=== PATIENT | female | born 1965 | race Two or more races ===

== ENCOUNTER 2022-12-08 10:38 | Outpatient (OUT) | payer MEDICARE, MEDICAID, SELFPAY ==
--- NOTE | 2022-12-08 11:15 | MM_ITS ---
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 MG MAMM SCREEN 3D KATHY CAD, 12/01/2021. INDICATIONS: Screening mammogram Z12.31 Calculator Name NCI Breast Cancer Risk Assessment Tool 5 Year Breast Cancer Risk 1.30% Lifetime Breast Cancer Risk 8.20% Personal Breast Cancer No Personal Ovarian Cancer No Treatments None Family Cancers Brother with unknown cancer at age 49; Brother with unknown cancer at age 57; Father with lung cancer at age 75. LOCATION: [facility] BREAST COMPOSITION: Scattered areas fibroglandular density. FINDINGS: DIAGNOSTIC CATEGORY 2--BENIGN FINDING. NO CHANGE FROM COMPARISON. Scattered benign-appearing calcifications are present. Limited exam due to difficulty positioning the patient. RIGHT BREAST: No significant suspicious finding. Stable micro clip marker axillary tail LEFT BREAST: No significant suspicious finding. RECOMMENDATIONS: ROUTINE MAMMOGRAM AND CLINICAL EVALUATION IN 12 MONTHS. PLEASE NOTE: A NORMAL MAMMOGRAM DOES NOT EXCLUDE THE POSSIBILITY OF BREAST CANCER. A CLINICALLY SUSPICIOUS PALPABLE LUMP SHOULD BE BIOPSIED. Dictated by: Andrew Rincon MD on 12/08/2022 at 11:53 Approved by: Andrew Rincon MD on 12/08/2022 at 11:54
[2022-12-08 12:39] LABS: Basophils Percent Auto 0.5 % (0.2-2.0); Eosinophils Absolute Auto 0.1 10^3/uL (0.0-0.7); Eosinophils Percent Auto 1.5 % (0.9-7.0); Hematocrit 43.1 % (36.0-48.0); Hemoglobin 14.1 g/dL (12.0-16.0); Immature Granulocytes Abs Auto 0.03 10^3/uL (0.00-0.03); Immature Granulocytes Pct Auto 0.4 % (0.0-0.5); Lymphocytes Absolute Auto 2.5 10^3/uL (1.2-3.8); Mean Corpuscular HGB Conc 32.7 g/dL (29.9-35.2); Mean Corpuscular Hemoglobin 30.8 pg (26.7-34.0); Mean Corpuscular Volume 94.1 fL (81.0-99.0); Mean Platelet Volume 12.3 fL (9.5-13.5); Monocytes Absolute Auto 0.5 10^3/uL (0.3-0.8); Monocytes Percent Auto 6.3 % (1.7-12.0); Neutrophils Absolute Auto 4.6 10^3/uL (1.4-6.5); Neutrophils Percent Auto 59.3 % (43.0-75.0); Platelet Count 272 10^3/uL (150-450); Red Blood Count 4.58 10^6/uL (4.20-5.40); Red Cell Distribution Width 12.8 % (11.0-15.0); White Blood Count 7.8 10^3/uL (4.0-11.0)
[2022-12-08 13:23] LABS: Alanine Aminotransferase 21 U/L (14-59); Albumin Level 3.9 g/dL (3.4-5.0); Alkaline Phosphatase 120 U/L (46-116); Anion Gap 14.9; Aspartate Amino Transferase 18 U/L (15-37); Bilirubin Total 0.4 mg/dL (0.2-1.0); Calcium 8.9 mg/dL (8.5-10.1); Carbon Dioxide 23.6 mmol/L (21.0-32.0); Chloride 106 mmol/L (98-107); Chol HDL Ratio 3.2; Cholesterol 133 mg/dL (<=200); Estimated GFR (African America >60 (>=60); Estimated GFR (Non-African Ame >60 (>=60); Globulin 3.9 g/dL; Glucose 90 mg/dL (74-106); HDL Cholesterol 41 mg/dL (40-60); LDL Cholesterol Calculated 62.2 mg/dL; Potassium 4.5 mmol/L (3.5-5.1); Sodium 140 mmol/L (136-145); Thyroid Stimulating Hormone 0.757 uIU/mL (0.358-3.740); Total Protein 7.8 g/dL (6.4-8.2); Triglycerides 149 mg/dL (<=150); VLDL CHOLESTEROL 29.8 mg/dL
== END 2022-12-08 10:39 | disposition home or self-care (01) ==
LOC: MAMMO 10:44
PROVIDERS: PCP Nurse Practitioner; Visit Provider Nurse Practitioner
DX: Z12.31 Encounter for screening mammogram for malignant neoplasm of breast (principal); E78.5 Hyperlipidemia, unspecified; E55.9 Vitamin D deficiency, unspecified; K21.9 Gastro-esophageal reflux disease without esophagitis; F32.A Depression, unspecified; Z80.1 Family history of malignant neoplasm of trachea, bronchus and lung; Z80.9 Family history of malignant neoplasm, unspecified
CPT/HCPCS: 36415; 77063; 77067; 80053; 80061; 82306; 84443; 85025

== ENCOUNTER 2023-10-27 08:51 | Outpatient (OUT) | payer MEDICARE, MEDICAID, SELFPAY ==
[2023-10-27 09:16] LABS: Basophils Percent Auto 0.4 % (0.2-2.0); Eosinophils Absolute Auto 0.1 10^3/uL (0.0-0.7); Eosinophils Percent Auto 1.6 % (0.9-7.0); Hematocrit 41.1 % (36.0-48.0); Hemoglobin 13.6 g/dL (12.0-16.0); Immature Granulocytes Abs Auto 0.01 10^3/uL (0.00-0.03); Immature Granulocytes Pct Auto 0.1 % (0.0-0.5); Lymphocytes Absolute Auto 2.9 10^3/uL (1.2-3.8); Lymphocytes Percent Auto 39.4 % (20.5-60.0); Mean Corpuscular HGB Conc 33.1 g/dL (29.9-35.2); Mean Corpuscular Hemoglobin 31.1 pg (26.7-34.0); Mean Corpuscular Volume 94.1 fL (81.0-99.0); Mean Platelet Volume 11.9 fL (9.5-13.5); Monocytes Absolute Auto 0.4 10^3/uL (0.3-0.8); Monocytes Percent Auto 5.8 % (1.7-12.0); Neutrophils Absolute Auto 3.9 10^3/uL (1.4-6.5); Neutrophils Percent Auto 52.7 % (43.0-75.0); Platelet Count 236 10^3/uL (150-450); Red Blood Count 4.37 10^6/uL (4.20-5.40); Red Cell Distribution Width 12.6 % (11.0-15.0); White Blood Count 7.4 10^3/uL (4.0-11.0)
[2023-10-27 09:28] LABS: Estimated Average Glucose 114 mg/dL; Glycohemoglobin A1C 5.6 % (4.5-6.2)
[2023-10-27 10:44] LABS: Alanine Aminotransferase 29 U/L (14-59); Albumin Level 3.7 g/dL (3.4-5.0); Alkaline Phosphatase 130 U/L (46-116); Anion Gap 14.1; Aspartate Amino Transferase 11 U/L (15-37); Bilirubin Total 0.4 mg/dL (0.2-1.0); Calcium 8.6 mg/dL (8.5-10.1); Carbon Dioxide 25.1 mmol/L (21.0-32.0); Chloride 105 mmol/L (98-107); Cholesterol 131 mg/dL (<=200); Estimated GFR (African America >60 (>=60); Estimated GFR (Non-African Ame >60 (>=60); Globulin 3.7 g/dL; Glucose 92 mg/dL (74-106); HDL Cholesterol 44 mg/dL (40-60); Potassium 4.2 mmol/L (3.5-5.1); Sodium 140 mmol/L (136-145); Thyroid Stimulating Hormone 0.849 uIU/mL (0.358-3.740); Total Protein 7.4 g/dL (6.4-8.2); Triglycerides 120 mg/dL (<=150)
== END 2023-10-27 08:52 | disposition home or self-care (01) ==
LOC: LAB 08:53
PROVIDERS: PCP Nurse Practitioner; Visit Provider Nurse Practitioner
DX: E55.9 Vitamin D deficiency, unspecified (principal); R12 Heartburn; E78.2 Mixed hyperlipidemia; F33.40 Major depressive disorder, recurrent, in remission, unspecified; R73.09 Other abnormal glucose
CPT/HCPCS: 36415; 80053; 80061; 82306; 83036; 84443; 85025

== ENCOUNTER 2023-12-13 10:24 | Outpatient (OUT) | payer MEDICARE, MEDICAID, SELFPAY ==
--- NOTE | 2023-12-13 10:30 | MM_ITS ---
Patient Name: ANDREA TORIBIO MR#: [id number] : 1965 Exam Date: 12/13/2023 Ordering Doctor: BRIAN De La O CNP RADIOLOGY REPORT PROCEDURE: MM TOMOSYNTHESIS SCREENING BI COMPARISON: MM TOMOSYNTHESIS SCREENING BI, 12/08/2022. MG MAMM SCREEN 3D KATHY CAD, 12/01/2021. MG MAMM SCREEN 3D KATHY CAD, 10/30/2020. MG MAMM KATHY SCRN W CAD DIG, 06/06/2013. INDICATIONS: Screening Calculator Name NCI Breast Cancer Risk Assessment Tool 5 Year Breast Cancer Risk 1.30% Lifetime Breast Cancer Risk 8.00% Personal Breast Cancer No Personal Ovarian Cancer No Treatments None Family Cancers Brother with unknown cancer at age 49; Brother with unknown cancer at age 57; Father with lung cancer at age 75. LOCATION: [facility] BREAST COMPOSITION: There are scattered areas of fibroglandular density. FINDINGS: DIAGNOSTIC CATEGORY 2--BENIGN FINDING: RIGHT BREAST: No significant suspicious finding. Stable, chronic lower-outer quadrant benign-appearing lymph node. No significant change has occurred. LEFT BREAST: No significant suspicious finding. No significant change has occurred. RECOMMENDATIONS: ROUTINE MAMMOGRAM AND CLINICAL EVALUATION IN 12 MONTHS. PLEASE NOTE: A NORMAL MAMMOGRAM DOES NOT EXCLUDE THE POSSIBILITY OF BREAST CANCER. A CLINICALLY SUSPICIOUS PALPABLE LUMP SHOULD BE BIOPSIED. Dictated by: Hussain Angela M.D. on 12/14/2023 at 16:21 Approved by: Hussain Angela M.D. on 12/14/2023 at 16:24
== END 2023-12-13 10:25 | disposition home or self-care (01) ==
LOC: MAMMO 10:26
PROVIDERS: PCP Nurse Practitioner; Visit Provider Nurse Practitioner
DX: Z12.31 Encounter for screening mammogram for malignant neoplasm of breast (principal); Z80.1 Family history of malignant neoplasm of trachea, bronchus and lung; Z80.8 Family history of malignant neoplasm of other organs or systems
CPT/HCPCS: 77063; 77067

== ENCOUNTER 2023-12-26 20:46 | Outpatient (REF) | payer MEDICARE, MEDICAID, SELFPAY ==
--- OUTSIDE RECORDS SUMMARY | 2023-12-26 20:50 | XMS_ITS | CCD ---
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 Name Role Phone ANA MEZA Primary Care Unavailable ANA MEZA Attending Unavailable DR ISAAC ARRIAZA V Consulting Unavailable ANA MEZA Admitting Unavailable ANA MEZA Consulting Unavailable Problems Problem Classification Problem Date Documented Da te Episodic/Chronic Other screening for suspected conditions (not mental disorders or infectious disease) (4 sources) Encounter for screening mammogram for malignant neoplasm of breast; Translations: [ENC SCR MAMMO MALIG NEOPLASM BREAST] Onset: 12-01-2021 Episodic Residual codes; unclassified (1 source) Family history of malignant neoplasm, unspecified; Translations: [FAM HX MALIGNANT NEOPLASM UNS] Onset: 12-03-2021 Episodic Results Test Name Value Interpretation Reference Range Facil ity MG MAMM SCREEN 3D KATHY CADon 12-01-2021 MG MAMM SCREEN 3D KATHY CAD Patient: ANDREA FERRARO. Exam Date: 12/01/2021 : 1965 Gender:F Ordering : ANA MEZA Admission #: [id number] Family : Order #: [id number] CLICK HERE TO VIEW EXAM RADIOLOGY REPORT PROCEDURE: MAMMOGRAM SCREENING 3D BILATERAL CAD COMPARISON: MG MAMM SCREEN KATHY W CAD, 10/26/2019. MG MAMM SCREEN 3D KATHY CAD, 10/30/2020. INDICATIONS: Screening mammography Calculator Name NCI Breast Cancer Risk Assessment Tool 5 Year Breast Cancer Risk 1.30% Lifetime Breast Cancer Risk 8.40% Personal Breast Cancer No Personal Ovarian Cancer No Treatments None Family Cancers Brother with unknown cancer at age 49; Brother with unknown cancer at age 57. LOCATION: [facility] BREAST COMPOSITION: Scattered areas fibroglandular density. FINDINGS: DIAGNOSTIC CATEGORY 2--BENIGN FINDING. NO CHANGE FROM COMPARISON. Scattered benign-appearing nodules are present. Scattered benign-appearing calcifications are present. Scattered benign-appearing lymph nodes are present. RIGHT BREAST: No significant suspicious finding. Two stable micro clip markers upper-outer quadrant. LEFT BREAST: No significant suspicious finding. RECOMMENDATIONS: ROUTINE MAMMOGRAM AND CLINICAL EVALUATION IN 12 MONTHS. PLEASE NOTE: A NORMAL MAMMOGRAM DOES NOT EXCLUDE THE POSSIBILITY OF BREAST CANCER. A CLINICALLY SUSPICIOUS PALPABLE LUMP SHOULD BE BIOPSIED. 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 There is no fracture or destructive lesion. Mild intervertebral disc height loss is noted at T12-L1 with anterior ossified formation. There is also minimal disc height loss at L4-5 and L5-S1 with accompanying facet hypertrophy. Mild symmetric sacroiliac joint degenerative changes are noted. XR/XR lumbar spine min 4V* IMPRESSION: No fracture or subluxation. Degenerative changes at T12-L1, L4-L5, and L5-S1 predominantly. Mild symmetric sacral iliac joint degenerative changes are noted. Impression dictated by: Sim Carl M.D.08/24/2020 11:39 AM Dictation Location: [place] [address] Transcribed By: LOCO 08/24/20 [id number] Dictated By: Sim Carl II, MD 08/24/20 1137 Signed By: 08/24/20 1139 [facility] Encounters Encounter Date Encounter Type Care Provider Facility Start: 12-01-2021 End: 12-02-2021 ambulatory ANA MEZA Facility: Payers Date Payer Category Payer Unknown [id number] 1959 Medicaid [id number] 1959 Medicare [id number] Summary Purpose Family History No Family History Records FoundNo Family History Records Found Advance Directives No Advanced Directives Records FoundNo Advanced Directives Records Found Additional Source Comments INFORMATION SOURCE (unrecogn ized section and content) DATE CREATED AUTHOR 06/02/2021 [facility] DATE CREATED AUTHOR AUTHOR'S CARLEY ATION 12/04/2021 [facility] FOR RECORDS PERTAINING TO PATIENTS WHO ARE OR HAVE BEEN ENROLLED IN A CHEMICAL DEPENDENCY/SUBSTANCEABUSE PROGRAM, SOME INFORMATION MAY BE OMITTED. This clinical summary was aggregated from multiple sources. Caution should be exercised in using it in the provision of clinical care. This summary normalizes information from multiple sources, and as a consequence, information in this document may materially change the coding, format and clinical context of patient data. In addition, data may be omitted in some cases. CLINICAL DECISIONS SHOULD BE BASED ON THE PRIMARY CLINICAL RECORDS. [facility] [employer] [facility]. provides no warranty or guarantee of the accuracy or completeness of information in this document.
[2023-12-27 16:16] LABS: Bilirubin Urine NEGATIVE (NEGATIVE); Blood Urine TRACE-I (NEGATIVE); Clarity Urine CLOUDY (CLEAR); Color Urine YELLOW (YELLOW); Glucose Urine UA NEGATIVE (NEGATIVE); Ketones Urine NEGATIVE (NEGATIVE); Leukocyte Esterase Urine NEGATIVE (NEGATIVE); Nitrite Urine NEGATIVE (NEGATIVE); Protein Urine NEGATIVE (NEG/TRACE); Specific Gravity Urine 1.025 (1.005-1.025); Urobilinogen Urine 0.2 EU/dL (0.2-1.0); pH Urine 6.5 (5.0-9.0)
[2023-12-27 16:22] LABS: Urine Microscopic Indicated YES
[2023-12-27 16:30] LABS: Amorphous Sediment Urine MANY; Bacteria Urine TRACE #/HPF (NONE SEEN); Cast Seen? NONE SEEN #/LPF (NONE SEEN); Crystals Seen? Seen #/HPF (None Seen); Mucus Urine NONE SEEN (NONE SEEN); Squamous Epithelial Cell Urine RARE #/LPF (NONE/RARE); WBC Urine 0-2 #/HPF (NONE SEEN)
== END 2023-12-26 20:47 | disposition home or self-care (01) ==
LOC: LAB 20:46
PROVIDERS: PCP Nurse Practitioner; Visit Provider Nurse Practitioner
DX: R11.2 Nausea with vomiting, unspecified (principal)
CPT/HCPCS: 81001

== ENCOUNTER 2024-07-05 09:17 | Outpatient (OUT) | payer MEDICARE, MEDICAID, SELFPAY ==
--- OUTSIDE RECORDS SUMMARY | 2024-07-05 09:34 | XMS_ITS | CCD ---
Author Organization [facility] Care Team Providers Care Art Critic Name Role Phone ANA MEZA Primary Care Unavailable ANA MEZA Attending Unavailable DR ISAAC ARRIAZA V Consulting Unavailable ANA MEZA Admitting Unavailable ANA MEZA Consulting Unavailable Jaylyn MAMMOGRAPHY TECH, Chasity Unavailable Archie Yeboah MD Primary Care Provider [phone] Jaylyn BAXTER, Chasity Unavailable CHASITY DE LA O Attending Unavailable CHASITY DE LA O Attending Unavailable CHASITY DE LA O Attending Unavailable Medications Current Medications Medication Drug Class(es) Dates Sig (Normalized) Sig (Original) acetaminophen 500 mg oral tablet (11 sources) Start: 08-02-2023 take 1 tablet by mouth every six hours as needed for pain acetaminophen (Tylenol) 500 MG tablet Indications: Pain GIVE 1 TABLET BY MOUTH EVERY 6 HOURS NEEDED FOR HEADACHE, GENERAL BODY PAIN NOT INCLUDING LEG PAIN OR FEVER>100.4 60 tablet 2 08/02/2023 Active cholecalciferol 0.125 mg oral capsule (9 sources) Vitamin D Start: 05-15-2024 End: 08-13-2024 take 1 capsule by mouth once daily cholecalciferol (Vitamin D-3) 125 MCG (5000 UT) capsule Indications: Vitamin D deficiency Take 1 capsule (125 mcg) by mouth Daily 90 capsule 05/15/2024 08/13/2024 Active Start: 11-28-2023 End: 02-26-2024 take 1 capsule by mouth once daily cholecalciferol (Vitamin D-3) 125 MCG (5000 UT) capsule Indications: Vitamin D deficiency Take 1 capsule (125 mcg) by mouth Daily 90 capsule 1 11/28/2023 02/26/2024 Active docusate sodium 100 mg oral capsule (10 sources) Start: 05-15-2024 End: 08-13-2024 take 2 capsules by mouth at bedtime docusate sodium (Colace) 100 MG capsule Indications: Constipation, unspecified constipation type Take 2 capsules (200 mg) by mouth at bedtime 180 capsule 05/15/2024 08/13/2024 Active Start: 11-28-2023 End: 02-28-2024 take 2 capsules by mouth at bedtime docusate sodium (Colace) 100 MG capsule Indications: Constipation, unspecified constipation type Take 2 capsules (200 mg) by mouth at bedtime 180 capsule 1 11/30/2023 02/28/2024 Active FLUoxetine 10 mg oral capsule (12 sources) Serotonin Reuptake Inhibitor Start: 11-28-2023 End: 08-13-2024 take 1 capsule by mouth once daily FLUoxetine (PROzac) 10 MG capsule Indications: Recurrent major depressive disorder, in remission (HCC) (CMS/HCC) Take 1 capsule (10 mg) by mouth Daily 90 capsule 05/15/2024 08/13/2024 Active fluticasone propionate 0.05 mg/actuat metered dose nasal spray (11 sources) Corticosteroid Start: 09-20-2023 End: 12-19-2023 take 2 spray(s) nasal route once daily fluticasone (Flonase) 50 MCG/ACT nasal spray Indications: Chronic allergic rhinitis due to pollen Administer 2 sprays into each nostril Daily 48 g 3 09/20/2023 Active ibuprofen 800 mg oral tablet (11 sources) Nonsteroidal Anti-inflammatory Drug Start: 04-16-2024 End: 07-15-2024 take 1 tablet by mouth every eight hours as needed for pain and arthritis and arthritis ibuprofen 800 MG tablet Indications: Arthritis Take 1 tablet (800 mg) by mouth every 8 (eight) hours if needed for mild pain 270 tablet 1 04/16/2024 07/15/2024 Active Start: 04-08-2023 End: 04-07-2024 take 1 tablet by mouth every eight hours as needed for pain and arthritis and arthritis ibuprofen 800 MG tablet Indications: Arthritis Take 1 tablet (800 mg) by mouth every 8 (eight) hours if needed for mild pain 270 tablet 2 04/08/2023 04/07/2024 Active loratadine 10 mg oral tablet (12 sources) Start: 11-07-2023 End: 08-13-2024 take 1 tablet by mouth once daily loratadine (Claritin) 10 MG tablet Indications: Chronic allergic rhinitis due to pollen Take 1 tablet (10 mg) by mouth Daily 90 tablet 05/15/2024 08/13/2024 Active omeprazole 20 mg delayed release oral capsule (12 sources) Proton Pump Inhibitor Start: 11-07-2023 End: 04-18-2024 take 1 capsule by mouth in the evening omeprazole (PriLOSEC) [address] capsule Indications: Gastroesophageal reflux disease without esophagitis Take 1 capsule (20 mg) by mouth in the evening 90 capsule 1 01/19/2024 Active ondansetron 4 mg disintegrating oral tablet (5 sources) Serotonin-3 Receptor Antagonist Start: 12-26-2023 End: 01-02-2024 take 1 tablet by mouth every eight hours for nausea ondansetron ODT (Zofran-ODT) 4 MG disintegrating tablet Indications: Nausea and vomiting, unspecified vomiting type Take 1 tablet (4 mg) by mouth every 8 (eight) hours if needed for nausea or vomiting for up to 7 days 21 tablet 12/26/2023 01/02/2024 Active rosuvastatin calcium 10 mg oral tablet (12 sources) HMG-CoA Reductase Inhibitor Start: 04-08-2023 End: 03-16-2024 take 1 tablet by mouth once daily in the evening rosuvastatin (Crestor) 10 MG tablet Indications: Mixed hyperlipidemia (CMS/HCC) GIVE 1 TABLET BY MOUTH EVERY EVENING (8PM) 90 tablet 1 03/16/2024 Active Problems Active Problems Problem Classification Problem Date Documented Da te Episodic/Chronic Disorders of lipid metabolism (12 sources) Mixed hyperlipidemia; Translations: [Mixed hyperlipidemia] Onset: 04-02-2023 04-02-2023 Chronic Mood disorders (12 sources) Recurrent major depression in remission; Translations: [Major depressive disorder, recurrent, in remission, unspecified] Onset: 06-17-2023 06-17-2023 Chronic Nutritional deficiencies (12 sources) Vitamin D deficiency; Translations: [Vitamin D deficiency, unspecified] Onset: 06-17-2023 06-17-2023 Chronic Osteoarthritis (12 sources) Bilateral arthritis of knees; Translations: [Bilateral primary osteoarthritis of knee] Onset: 03-26-2019 06-07-2023 Chronic Other gastrointestinal disorders (13 sources) Constipation; Translations: [Constipation, unspecified] Onset: 12-20-2017 06-07-2023 Episodic Other upper respiratory disease (12 sources) Allergic rhinitis due to pollen; Translations: [Allergic rhinitis due to pollen] Onset: 06-04-2019 06-07-2023 Chronic Residual codes; unclassified (1 source) Family history of malignant neoplasm, unspecified; Translations: [FAM HX MALIGNANT NEOPLASM UNS] Onset: 12-03-2021 Episodic Past or Other Problems Problem Classification Problem Date Documented Da te Episodic/Chronic Diabetes mellitus without complication (11 sources) Increased glucose level; Translations: [Other abnormal glucose] Onset: 9 06-07-2023 Episodic Esophageal disorders (12 sources) Gastroesophageal reflux disease without esophagitis; Translations: [Gastro-esophageal reflux disease without esophagitis] Onset: 4 Resolved: 4 01-19-2024 Chronic Mood disorders (11 sources) Mood disorders Onset: 4 06-07-2023 Nausea and vomiting (12 sources) Nausea and vomiting; Translations: [Nausea with vomiting, unspecified] Onset: 4 12-26-2023 Episodic Other gastrointestinal disorders (11 sources) Heartburn; Translations: [Heartburn] Onset: 4 08-02-2023 Episodic Other nutritional; endocrine; and metabolic disorders (13 sources) Body mass index 25-29 - overweight; Translations: [Overweight] Onset: 4 06-07-2023 Episodic Other screening for suspected conditions (not mental disorders or infectious disease) (15 sources) Encounter for screening mammogram for malignant neoplasm of breast; Translations: [Patient encounter status] Onset: Episodic Residual codes; unclassified (11 sources) Menopause present; Translations: [Asymptomatic menopausal state] Onset: 9 06-07-2023 Episodic Residual codes; unclassified (11 sources) Pain; Translations: [Pain, unspecified] Onset: 4 08-02-2023 Episodic Screening and history of mental health and substance abuse codes (11 sources) Abnormal developmental screening; Translations: [Encounter for screening for unspecified developmental delays] Onset: 8 06-07-2023 Episodic Viral infection (11 sources) Viral disease; Translations: [Viral infection, unspecified] Onset: 4 12-26-2023 Episodic Results Test Name Value Interpretation Reference Range Facility COMMON RESPIRATORY BACTERIAL /VIRAL INFECTION (HTRX)on 12-28-2023 ADENOVIRUS HADV-B 0.000 [facility] ADENOVIRUS HADV-B Not detected [facility] BORDETELLA PERTUSSIS, PARAPERTUSIS, BRONCHISEPTICA 0.000 [facility] BORDETELLA PERTUSSIS, PARAPERTUSIS, BRONCHISEPTICA Not detected [facility] CHLAMYDIA PNEUMONIAE 0.000 [facility] CHLAMYDIA PNEUMONIAE Not detected [facility] CORONAVIRUS (NL63, OC43, AND HKU1) 0.000 [facility] CORONAVIRUS (NL63, OC43, AND HKU1) Not detected [facility] ENTEROVIRUS D68 0.000 [facility] ENTEROVIRUS D68 Not detected [facility] HAEMOPHILUS INFLUENZAE 0.000 [facility] HAEMOPHILUS INFLUENZAE Not detected [facility] HUMAN METAPNEUMOVIRUS 0.000 [facility] HUMAN METAPNEUMOVIRUS Not detected [facility] INFLUENZA VIRUS A, B 0.000 [facility] INFLUENZA VIRUS A, B Not detected [facility] Interpretation and review of laboratory results Abnormal [facility] MORAXELLA CATARRHALIS 0.000 [facility] MORAXELLA CATARRHALIS Not detected [facility] MYCOPLASMA PNEUMONIAE 0.000 [facility] MYCOPLASMA PNEUMONIAE Not detected [facility] PARAINFLUENZA VIRUS (TYPES 1, 2, 3, 4) 0.000 [facility] PARAINFLUENZA VIRUS (TYPES 1, 2, 3, 4) Not detected [facility] RESPIRATORY SYNCYTIAL VIRUS 0.000 [facility] RESPIRATORY SYNCYTIAL VIRUS Not detected [facility] RHINOVIRUS-ENTEROVIRU S 0.000 [facility] RHINOVIRUS-ENTEROVIRU S Not detected [facility] SARS-CoV-2 (COVID-19) RNA RIGOBERTO+probe Ql (Unsp spec) Positive Abnormal [facility] SARS-CoV-2 (COVID-19) RNA RIGOBERTO+probe Ql (Unsp spec) Detected Abnormal [facility] STREPTOCOCCUS PNEUMONIAE 0.000 [facility] STREPTOCOCCUS PNEUMONIAE Not detected [facility] UA (CLEAN/CATCH) MICROSC OPIC IF INDICATEon 12-27-2023 BILIRUBIN URINE Negative NEGATIVE [facility] BLOOD URINE TRACE-I NEGATIVE [facility] Clarity (U) CLOUDY Abnormal CLEAR [facility] Color (U) YELLOW YELLOW [facility] GLUCOSE URINE UA Negative NEGATIVE mg/dL [facility] Interpretation and review of laboratory results Abnormal [facility] Ketones Ql (U) Negative NEGATIVE mg/dL [facility] Leukocyte esterase Test strip Ql (U) Negative NEGATIVE [facility] NITRITE URINE Negative NEGATIVE [facility] pH (U) 6.5 [pH] 5.0 - 9.0 [facility] PROTEIN URINE Negative NEG/TRACE mg/dL [facility] SPECIFIC GRAVITY URINE 1.025 1.005 - 1.025 [facility] URINE MICROSCOPIC INDICATED YES [facility] UROBILINOGEN URINE 0.2 EU/dL 0.2 - 1.0 EU/dL [facility] Urinalysis macro (dipstick) panel (U)on 12-26-2023 Bilirubin, UA Negative Negative - 4(70) +++ mg/dL [facility] Blood, UA Positive Negative - 50 Ignacio/mcL [facility] Clarity, UA Turbid [facility] Color, UA Dark Leona [facility] Glucose, UA Negative Negative - 1999(110) ++++ mg/dL [facility] Interpretation and review of laboratory results Abnormal [facility] Ketones, UA Negative Negative - 160(16) ++++ mg/dL [facility] Leukocytes, UA Negative Negative - 500+++ Donny/mcL [facility] Nitrite, UA Negative Negative - Positive [facility] pH, UA 6.5 5 - 9 [facility] Protein, UA Trace Negative - 1999(20) ++++ mg/dL [facility] Spec Grav, UA 1.030 1 - 1.03 [facility] Urobilinogen, UA 2.0 0.2 - 12 [facility] M[facility]M SCREEN 3D KATHY CADon 12-01-2021 MG MAMM SCREEN 3D KATHY CAD Patient: LUISA TORIBIO Exam Date: 12/01/2021 : 1965 Gender:F Ordering : ANA MEZA Admission #: [id number] Family : Order #: [id number] CLICK HERE TO VIEW EXAM RADIOLOGY REPORT [...] unknown cancer at age 57. LOCATION: [facility] BREAST COMPOSITION: Scattered areas fibroglandular density. FINDINGS: [...] Arriaza MD on 12/01/2021 at 14:36 Normal [facility] XR lumbar spine min 4V*on XR lumbar spine min 4V* [facility] Main [place] [address] [place] [address] XRay Report Signed Patient: Luisa Toribio MR#: [id number] 7 : 1965 Acct:[id number] Age/Sex: 54 / F ADM Date: 08/24/20 Loc: XDUCLY Room: Type: [facility] Attending Dr: Nelia Ornelas APRN, MAMMOGRAPHY TECH-C Ordering Provider: Nelia Ornelas APRN Date of [...] Sim Carl M.D.08/24/2020 11:39 AM Dictation Location: [place] [address] Transcribed By: [facility] 08/24/20 1139 Dictated By: Sim Carl II, MD 08/24/20 1137 Signed By: 08/24/20 1139 [facility] Vital Signs Date Time Vital Sign Value Performing Clinician Destiny nolan 12-26-2023 09:43-0400 Body height 149.9 cm Chasity De La O MAMMOGRAPHY TECH Work Phone: [facility] 12-26-2023 09:43-0400 Body mass index (BMI) [Ratio] 28.68 kg/m2 Chasity De La O MAMMOGRAPHY TECH Work Phone: [facility] 12-26-2023 09:43-0400 Body temperature 98.1 [degF] Chasity De La O MAMMOGRAPHY TECH Work Phone: [facility] 12-26-2023 09:43-0400 Body weight 64.41 kg Chasity De La O MAMMOGRAPHY TECH Work Phone: [facility] 12-26-2023 09:43-0400 Diastolic blood pressure 76 mm[Hg] Chasity De La O MAMMOGRAPHY TECH Work Phone: [facility] 12-26-2023 09:43-0400 Heart rate 96 /min Chasity De La O MAMMOGRAPHY TECH Work Phone: [facility] 12-26-2023 09:43-0400 SaO2% (BldA) [Mass fraction] 98 % Chasity Sergoz MAMMOGRAPHY TECH Work Phone: [facility] 12-26-2023 09:43-0400 Systolic blood pressure 118 mm[Hg] Chasity Radhaholz MAMMOGRAPHY TECH Work Phone: [facility] Encounters Encounter Date Encounter Type Care Provider Facility Start: 06-27-2024 End: 06-27-2024 ambulatory CHASITY RADHAHOLZ Not Available Start: 05-15-2024 End: 05-15-2024 Refill Chasity Aichholz MAMMOGRAPHY TECH Work Phone: [facility] Comment on above: Recurrent major depr essive disorder, in remission (HCC) ([facility]); Constipation, unspecified constipation type; Vitamin D deficiency; Chronic allergic rhinitis due to pollen Start: 04-16-2024 End: 04-16-2024 Refill Chasity Aichholz MAMMOGRAPHY TECH Work Phone: [facility] Comment on above: Arthritis Start: 03-16-2024 End: 03-16-2024 Refill Chasity Aichholz MAMMOGRAPHY TECH Work Phone: [facility] Comment on above: Mixed hyperlipidemia ([facility]) Start: 01-19-2024 End: 01-19-2024 Refill Chasity Aichholz MAMMOGRAPHY TECH Work Phone: [facility] Comment on above: Gastroesophageal ref lux disease without esophagitis Start: 12-27-2023 End: 12-27-2023 Orders Only Chasity Sergoz MAMMOGRAPHY TECH Work Phone: [facility] Comment on above: Nausea and vomiting, unspecified vomiting type (Primary Dx) Start: 12-26-2023 End: 12-26-2023 Bamboo flowsheet Chasity Sergoz MAMMOGRAPHY TECH Work Phone: [facility] Start: 12-26-2023 End: 12-28-2023 Bamboo flowsheet Chasity Aichholz MAMMOGRAPHY TECH Work Phone: [facility] Start: 12-26-2023 End: 12-27-2023 Clinisync Result Encounter Chasity Jaylyn MAMMOGRAPHY TECH Work Phone: [facility] Unsolicited Start: 12-26-2023 End: 12-28-2023 External Result Encounter Chasity Jaylyn MAMMOGRAPHY TECH Work Phone: [facility] Unsolicited Start: 12-26-2023 End: 12-26-2023 Office outpatient visit 15 minutes Chasity Jaylyn MAMMOGRAPHY TECH Work Phone: [facility] Comment on above: Viral illness (Prima ry Dx); Nausea and vomiting, unspecified vomiting type; Overweight (BMI 25.0-29.9) Start: 12-26-2023 End: 12-26-2023 ambulatory CHASITY CHARBELHHOLZ Not Available Start: 11-30-2023 End: 11-30-2023 Refill Chasity Jaylyn MAMMOGRAPHY TECH Work Phone: [facility] Comment on above: Constipation, unspec ified constipation type Start: 10-18-2023 End: 10-18-2023 ambulatory CHASITY AICHHOLZ Not Available Start: 06-07-2023 Patient encounter procedure Uzma theodore Jaylyn MAMMOGRAPHY TECH Work Phone: [facility] Start: 12-01-2021 End: 12-02-[address] [facility] Facility: Procedures Date Procedure Procedure Detail Performing Clinician Start: 12-26-2023 Urnls dip stick/tabl et rgnt non-auto w/o micrscp Chasity De La O MAMMOGRAPHY TECH Work Phone: Start: 12-26-2023 [facility] UA (CLEAN/CATCH) MICROSCOPIC IF INDICATE Chasity De La O MAMMOGRAPHY TECH Work Phone: Start: 12-26-2023 COMMON RESPIRATORY BACTERIAL/VIRAL INFECTION (HTRX) Chasity De La O MAMMOGRAPHY TECH Work Phone: Start: 12-14-2023 Mammography Chasity rose MAMMOGRAPHY TECH Work Phone: Start: 12-08-2022 Mammography Chasity Junior oljayme MAMMOGRAPHY TECH Work Phone: Start: 09-24-2019 Colonoscopy Chasity rose MAMMOGRAPHY TECH Work Phone: Plan of Treatment Date Care Activity Detail Author Start: 12-13-2024 Screening for malign ant neoplasm of breast Mammogram [facility] Start: 09-23-2024 Screening for malign ant neoplasm of colon [facility] Start: 06-27-2024 End: 06-27-2024 Patient encounter procedure 06/27/2024 11:00 AM EDT Office Visit [facility] [address] [place] [id number] Chasity De La O, SAHIL [address] [place] [id number] [facility] Start: 06-07-2024 Medicare Annual Wellness (AWV) Medicare Annual Wellness (AWV) [facility] Start: 05-29-2024 End: 05-29-2024 Patient encounter procedure [facility] Start: 02-09-2024 Influenza vaccination Influenza Vacc ine (#1) [facility] Comment on above: Postponed from 12/10 (Patient Does Not Have Time) Start: 12-27-2023 End: 12-26-2024 Bacteria identified in Urine by Culture Urine culture (clean catch) Microbiology Routine Nausea and vomiting, unspecified vomiting type Expected: 12/27/2023 (Approximate), Expires: 12/26/2024 [facility] Comment on above: Expected: 12/27/2023 (Approximate), Expires: 12/26/2024 Start: 12-27-2023 End: 12-26-2024 Urinalysis complete panel - Urine Urinalysis with reflex microscopic (clean catch) Lab Routine Nausea and vomiting, unspecified vomiting type Expected: 12/27/2023 (Approximate), Expires: 12/26/2024 [facility] Work Phone: Comment on above: Expected: 12/27/2023 (Approximate), Expires: 12/26/2024 Start: 12-26-2023 End: 12-25-2024 COMMON RESPIRATORY BACTERIAL/VIRAL INFECTION (HTRX) COMMON RESPIRATORY BACTERIAL/VIRAL INFECTION (HTRX) Lab High Priority Viral illness Expected: 12/26/2023 (Approximate), Expires: 12/25/2024 [facility] Work Phone: Comment on above: Expected: 12/26/2023 (Approximate), Expires: 12/25/2024 Start: 12-26-2023 End: 12-25-2024 URINARY TRACT INFECTION (HTRX) URINARY TRACT INFECTION (HTRX) Lab Routine Nausea and vomiting, unspecified vomiting type Expected: 12/26/2023 (Approximate), Expires: 12/25/2024 [facility] Comment on above: Expected: 12/26/2023 (Approximate), Expires: 12/25/2024 Start: 12-26-2023 End: 12-26-2023 Patient encounter procedure 12/26/2023 9:40 AM EDT Office Visit [facility] [address] [place] [phone] Chasity De La O NP [address] [place] [address] [facility] Comment on above: Arrived Start: 12-11-2023 Influenza vaccination Influenza Vacc ine (#1) [facility] Start: 12-09-2023 Screening for malign ant neoplasm of breast Mammogram [facility] Start: 09-03-1995 Screening for malign ant neoplasm of cervix HPV/Cotest [facility] Start: 1986 Screening for malign ant neoplasm of cervix Pap Smear [facility] Start: 1965 Screening for malign ant neoplasm of colon [facility] Immunizations Immunization Date Immunization Notes Care Provider [facility] 03-09-2023 influenza, injectabl e, quadrivalent, preservative free Chasity Jaylyn MAMMOGRAPHY TECH Work Phone: [facility] 03-09-2023 influenza virus vacc ine, unspecified formulation Chasity Jaylyn MAMMOGRAPHY TECH Work Phone: [facility] 03-22-2022 influenza, injectabl e, quadrivalent, preservative free Chasity Aictenishaholz MAMMOGRAPHY TECH Work Phone: [facility] 01-22-2021 influenza, injectabl e, quadrivalent, preservative free Chasity Aichholz MAMMOGRAPHY TECH Work Phone: [facility] 03-20-2020 influenza, injectabl e, quadrivalent, preservative free Chasity Aichholz MAMMOGRAPHY TECH Work Phone: [facility] 01-16-2019 influenza, injectabl e, quadrivalent, preservative free Chasity Aichholz MAMMOGRAPHY TECH Work Phone: [facility] 08-29-2018 tetanus toxoid, redu constance diphtheria toxoid, and acellular pertussis vaccine, adsorbed Chasity Aichholz MAMMOGRAPHY TECH Work Phone: [facility] 01-19-2018 influenza, injectabl e, quadrivalent, preservative free Chasity Aichholz MAMMOGRAPHY TECH Work Phone: [facility] Payers Date Payer Category Payer Medicaid [id number] 1985 Medicare [id number] 1965 Unknown [id number] 1965 Unknown [id number] 1965 Unknown [id number] 1965 Unknown [id number] 1959 Medicaid [id number] 1959 Medicare [id number] Social History Date Type Detail Facility Start: [facility]18-[facility]23 [facility] Start: 10-18-2023 Tobacco use and exposure Smoke less tobacco non-user [facility] Start: 10-18-2023 End: 12-26-2023 Alcoholic beverage intake Lifetime non-drinker (finding) [facility] Start: 06-07-2023 End: 10-18-2023 History of Social function [facility] Start: 06-07-2023 End: 10-18-2023 Humiliation, Afraid, Rape, and Kick questionnaire [HARK] [facility] Within the last year , have you been afraid of your partner or ex-partner? No [facility] Are you now , , , , never or living with a partner? Never [facility] How often to you hav e a drink containing alcohol? Never [facility] How many standard dr inks containing alcohol do you have on a typical day? Patient does not drink [facility] Do you feel stress - tense, restless, nervous, or anxious, or unable to sleep at night because your mind is troubled all the time - these days [OSQ] Not at all [facility] (I/We) worried [facility] (my/our) food would run out before (I/we) got money to buy more. Never true [facility] Start: 06-07-2023 Alcohol Comment diet pop: 1 daily [facility] Start: 1965 Sex assigned at Not on file [facility] NEGATED: Highlighted rowStart: NINF History of tobacco use Passive smoker [facility] History of Present illness Narrative 12-26-2023 Chasity De La O NP - 12/26/2023 10:25 AM Erika De La O NP - 12/26/2023 10:25 AM NAREN ALFONSO - 12/26/2023 9:40 AM Erika De La O NP - 12/26/2023 9:40 AM EDT Note Date & Type Note Facility 12-26-2023 History of Presen t illness Narrative Associated Problem(s): Viral illness Suspect covid, will order resp panel and urine culture Fluids, rest nausea meds Off work note given for the week If worsening in symptoms can go to ER as well Associated Problem(s): Nausea & vomiting Will send in zofran to pharmacy Ordered urine culture and respiratory panel Pt states her head and her throat hurts since yesterday. Nausea and vomiting last night. Other pts at her facility she lives in has covid at this time. Images from the original note were not included. Luisa Toribio is a 58 y.o. female presents with chief complaint of No chief complaint on file. HPI: Here for sxs of illness: Started yesterday, NV, no diarrhea, +sore throat, no fever, ears do not hurt, no diarrhea, generalized pain in abd, no fever Has had exposure to covid SUBJECTIVE: MEDICATIONS: Current Outpatient Medications Medication Instructions acetaminophen (Tylenol) 500 MG tablet GIVE 1 TABLET BY MOUTH EVERY 6 HOURS NEEDED FOR HEADACHE, GENERAL BODY PAIN NOT INCLUDING LEG PAIN OR FEVER>100.4 cholecalciferol (VITAMIN D-3) 125 mcg, Oral, Daily docusate sodium (COLACE) 200 mg, Oral, Nightly FLUoxetine (PROZAC) 10 mg, Oral, Daily fluticasone (Flonase) 50 MCG/ACT nasal spray 2 sprays, Each Nostril, Daily ibuprofen 800 mg, Oral, Every 8 hours PRN loratadine (CLARITIN) 10 mg, Oral, Daily omeprazole (PRILOSEC) 20 mg, Oral, Daily before breakfast rosuvastatin (Crestor) 10 MG tablet GIVE 1 TABLET BY MOUTH EVERY EVENING (8PM) *SS DENIED PATIENT NO LONGER UNDER PROVIDER CARE* ALLERGIES: No Known Allergies REVIEW OF SYMPTOMS: Review of Systems Constitutional: Negative for appetite change, chills and fever. HENT: Positive for rhinorrhea and sore throat. Negative for congestion and ear pain. Eyes: Negative for pain, discharge, redness and visual disturbance. Respiratory: Negative for cough, shortness of breath and wheezing. Cardiovascular: Negative for chest pain, palpitations and leg swelling. Gastrointestinal: Positive for nausea and vomiting. Negative for abdominal pain (generalized), blood in stool, constipation and diarrhea. Genitourinary: Negative for difficulty urinating, dysuria and frequency. Musculoskeletal: Negative for arthralgias, back pain, joint swelling and myalgias. Skin: Negative for rash and wound. Neurological: Negative for dizziness, tremors, seizures, syncope and headaches. Psychiatric/Behavioral: Negative for behavioral problems, self-injury and suicidal ideas. The patient is not nervous/anxious. Hematological: Does not bruise/bleed easily. Endocrine: Negative for polydipsia, polyphagia and polyuria. Allergic/Immunologic: Negative for environmental allergies and food allergies. PAST MEDICAL HISTORY Past Medical History: Diagnosis Date Mixed hyperlipidemia (CMS/HCC) 04/02/2023 Past Surgical History: Procedure Laterality Date EXPLORATORY LAPAROTOMY HYSTERECTOMY family history is not on file. OBJECTIVE: Visit Vitals BP 118/76 (BP Location: Left arm, Patient Position: Sitting, BP Cuff Size: Adult long) Pulse 96 Temp 98.1 F (Temporal) Ht 4' 11 Wt 142 lb SpO2 98% BMI 28.68 kg/m Smoking Status Never BSA 1.64 m Physical Exam Vitals and nursing note reviewed. Constitutional: General: She is not in acute distress. Appearance: She is not toxic-appearing or diaphoretic. HENT: Head: Normocephalic and atraumatic. Right Ear: Tympanic membrane, ear canal and external ear normal. Left Ear: Tympanic membrane, ear canal and external ear normal. Nose: Rhinorrhea present. No congestion. Mouth/Throat: Mouth: Mucous membranes are moist. Pharynx: No oropharyngeal exudate or posterior oropharyngeal erythema. Eyes: Extraocular Movements: Extraocular movements intact. Conjunctiva/sclera: Conjunctivae normal. Cardiovascular: Rate and Rhythm: Normal rate and regular rhythm. Pulses: Normal pulses. Heart sounds: Normal heart sounds. Pulmonary: Effort: Pulmonary effort is normal. Breath sounds: Normal breath sounds. Abdominal: General: Bowel sounds are normal. There is no distension. Palpations: Abdomen is soft. There is no mass. Tenderness: There is no abdominal tenderness (generalized about the abd). Comments: Nausea, Musculoskeletal: General: Normal range of motion. Cervical back: Normal range of motion and neck supple. Right lower leg: No edema. Left lower leg: No edema. Lymphadenopathy: Cervical: No cervical adenopathy. Skin: General: Skin is warm and dry. Capillary Refill: Capillary refill takes 2 to 3 seconds. Findings: No rash. Neurological: General: No focal deficit present. Mental Status: She is alert and oriented to person, place, and time. Psychiatric: Mood and Affect: Mood normal. Behavior: Behavior normal. Thought Content: Thought content normal. Judgment: Judgment normal. ASSESSMENT AND PLAN: No follow-ups on file. Images from the original note were not included. Luisa Toribio is a 58 y.o. female presents with chief complaint of No chief complaint on file. HPI: Here for sxs of illness: Started yesterday, NV, no diarrhea, +sore throat, no fever, ears do not hurt, no diarrhea, generalized pain in abd, no fever Lives in a half-way with 2 others no illness there, works [email or web address] twice a week, and goes to a work shop/type setting where there has been covid noted SUBJECTIVE: MEDICATIONS: Current Outpatient Medications Medication Instructions acetaminophen (Tylenol) 500 MG tablet GIVE 1 TABLET BY MOUTH EVERY 6 HOURS NEEDED FOR HEADACHE, GENERAL BODY PAIN NOT INCLUDING LEG PAIN OR FEVER>100.4 cholecalciferol (VITAMIN D-3) 125 mcg, Oral, Daily docusate sodium (COLACE) 200 mg, Oral, Nightly FLUoxetine (PROZAC) 10 mg, Oral, Daily fluticasone (Flonase) 50 MCG/ACT nasal spray 2 sprays, Each Nostril, Daily ibuprofen 800 mg, Oral, Every 8 hours PRN loratadine (CLARITIN) 10 mg, Oral, Daily omeprazole (PRILOSEC) 20 mg, Oral, Daily before breakfast ondansetron ODT (ZOFRAN-ODT) 4 mg, Oral, Every 8 hours PRN rosuvastatin (Crestor) 10 MG tablet GIVE 1 TABLET BY MOUTH EVERY EVENING (8PM) *SS DENIED PATIENT NO LONGER UNDER PROVIDER CARE* ALLERGIES: No Known Allergies REVIEW OF SYMPTOMS: Review of Systems Constitutional: Negative for appetite change, chills and fever. HENT: Positive for rhinorrhea and sore throat. Negative for congestion and ear pain. Eyes: Negative for pain, discharge, redness and visual disturbance. Respiratory: Negative for cough, shortness of breath and wheezing. Cardiovascular: Negative for chest pain, palpitations and leg swelling. Gastrointestinal: Positive for nausea and vomiting. Negative for abdominal pain (generalized), blood in stool, constipation and diarrhea. Genitourinary: Negative for difficulty urinating, dysuria and frequency. Musculoskeletal: Negative for arthralgias, back pain, joint swelling and myalgias. Skin: Negative for rash and wound. Neurological: Negative for dizziness, tremors, seizures, syncope and headaches. Psychiatric/Behavioral: Negative for behavioral problems, self-injury and suicidal ideas. The patient is not nervous/anxious. Hematological: Does not bruise/bleed easily. Endocrine: Negative for polydipsia, polyphagia and polyuria. Allergic/Immunologic: Negative for environmental allergies and food allergies. PAST MEDICAL HISTORY Past Medical History: Diagnosis Date Mixed hyperlipidemia (CMS/HCC) 04/02/2023 Past Surgical History: Procedure Laterality Date EXPLORATORY LAPAROTOMY HYSTERECTOMY family history is not on file. OBJECTIVE: Visit Vitals BP 118/76 (BP Location: Left arm, Patient Position: Sitting, BP Cuff Size: Adult long) Pulse 96 Temp 98.1 F (Temporal) Ht 4' 11 Wt 142 lb SpO2 98% BMI 28.68 kg/m Smoking Status Never BSA 1.64 m Physical Exam Vitals and nursing note reviewed. Constitutional: General: She is not in acute distress. Appearance: She is not toxic-appearing or diaphoretic. HENT: Head: Normocephalic and atraumatic. Right Ear: Tympanic membrane, ear canal and external ear normal. Left Ear: Tympanic membrane, ear canal and external ear normal. Nose: Rhinorrhea present. No congestion. Mouth/Throat: Mouth: Mucous membranes are moist. Pharynx: No oropharyngeal exudate or posterior oropharyngeal erythema. Eyes: Extraocular Movements: Extraocular movements intact. Conjunctiva/sclera: Conjunctivae normal. Cardiovascular: Rate and Rhythm: Normal rate and regular rhythm. Pulses: Normal pulses. Heart sounds: Normal heart sounds. Pulmonary: Effort: Pulmonary effort is normal. Breath sounds: Normal breath sounds. Abdominal: General: Bowel sounds are normal. There is no distension. Palpations: Abdomen is soft. There is no mass. Tenderness: There is no abdominal tenderness (generalized about the abd). Comments: Nausea, Musculoskeletal: General: Normal range of motion. Cervical back: Normal range of motion and neck supple. Right lower leg: No edema. Left lower leg: No edema. Lymphadenopathy: Cervical: No cervical adenopathy. Skin: General: Skin is warm and dry. Capillary Refill: Capillary refill takes 2 to 3 seconds. Findings: No rash. Neurological: General: No focal deficit present. Mental Status: She is alert and oriented to person, place, and time. Psychiatric: Mood and Affect: Mood normal. Behavior: Behavior normal. Thought Content: Thought content normal. Judgment: Judgment normal. ASSESSMENT AND PLAN: No follow-ups on file. Problem List Items Addressed This Visit Overweight (BMI 25.0-29.9) Viral illness - Primary Suspect covid, will order resp panel and urine culture Fluids, rest nausea meds Off work note given for the week If worsening in symptoms can go to ER as well Relevant Orders COMMON RESPIRATORY BACTERIAL/VIRAL INFECTION (HTRX) Nausea & vomiting Will send in zofran to pharmacy Ordered urine culture and respiratory panel Relevant Medications ondansetron ODT (Zofran-ODT) 4 MG disintegrating tablet Other Relevant Orders POCT Urinalysis dipstick (Completed) URINARY TRACT INFECTION (HTRX) documented in this encounter [facility] Evaluation note Note Date & Type Note Facility Evaluation note Diagnosis Gastroesophageal reflux disease without esophagitis Esophageal reflux documented in this encounter [facility] Healthcare Evaluation note Note Date & Type Note Facility Evaluation note Diagnosis Encounter for subsequent annual wellness visit (AWV) in Medicare patient- Primary Overweight (BMI 25.0-29.9) Overweight Recurrent major depressive disorder, in remission (HCC) ([facility])- Primary Vitamin D deficiency Heart burn Heartburn Mixed hyperlipidemia ([facility]) Mixed hyperlipidemia Encounter for screening mammogram for malignant neoplasm of breast Elevated glucose level Viral illness- Primary Unspecified viral infection, in conditions classified elsewhere and of unspecified site Nausea and vomiting, unspecified vomiting type Overweight (BMI 25.0-29.9) Overweight Mixed hyperlipidemia ([facility]) Mixed hyperlipidemia documented in this encounter [facility] Evaluation note Note Date & Type Note Facility Evaluation note Diagnosis Viral illness- Primary Unspecified viral infection, in conditions classified elsewhere and of unspecified site Nausea and vomiting, unspecified vomiting type Overweight (BMI 25.0-29.9) Overweight documented in this encounter [facility] Evaluation note Note Date & Type Note Facility Evaluation note Diagnosis Nausea and vomiting, unspecified vomiting type- Primary documented in this encounter [facility] Evaluation note Note Date & Type Note Facility Evaluation note Diagnosis Constipation, unspecified constipation type documented in this encounter [facility] Evaluation note Note Date & Type Note Facility Evaluation note Diagnosis Encounter for subsequent annual wellness visit (AWV) in Medicare patient- Primary Overweight (BMI 25.0-29.9) Overweight Recurrent major depressive disorder, in remission (HCC) ([facility])- Primary Vitamin D deficiency Heart burn Heartburn Mixed hyperlipidemia ([facility]) Mixed hyperlipidemia Encounter for screening mammogram for malignant neoplasm of breast Elevated glucose level Viral illness- Primary Unspecified viral infection, in conditions classified elsewhere and of unspecified site Nausea and vomiting, unspecified vomiting type Overweight (BMI 25.0-29.9) Overweight Arthritis Unspecified arthropathy, site unspecified documented in this encounter [facility] Evaluation note Note Date & Type Note Facility Evaluation note Diagnosis Encounter for subsequent annual wellness visit (AWV) in Medicare patient- Primary Overweight (BMI 25.0-29.9) Overweight Recurrent major depressive disorder, in remission (HCC) ([facility])- Primary Vitamin D deficiency Heart burn Heartburn Mixed hyperlipidemia ([facility]) Mixed hyperlipidemia Encounter for screening mammogram for malignant neoplasm of breast Elevated glucose level Viral illness- Primary Unspecified viral infection, in conditions classified elsewhere and of unspecified site Nausea and vomiting, unspecified vomiting type Overweight (BMI 25.0-29.9) Overweight Recurrent major depressive disorder, in remission (HCC) ([facility]) Constipation, unspecified constipation type Vitamin D deficiency Chronic allergic rhinitis due to pollen documented in this encounter [facility] Summary Purpose Family History No Family History Records FoundNo Family History Records FoundNo Family History Records Found Advance Directives No Advanced Directives Records FoundNo Advanced Directives Records FoundNo Advanced Directives Records Found Additional Source Comments INFORMATION SOURCE (unrecogn ized section and content) DATE CREATED AUTHOR 06/02/2021 [facility] DATE CREATED AUTHOR AUTHOR'S ORGANIZ ATION 12/04/2021 [facility] DATE CREATED AUTHOR AUTHOR'S ORGANIZ ATION 06/29/2024 [facility] dical Specialists EPIC Care Teams (unrecognized sec tion and content) Art Critic Relationship Specialty Start Date End Date Archie Yeboah MD [address] [place] [phone] PCP - General Family Medicine 06/07/23 Chasity De La O NP [address] [place] [address] Nurse Practitioner Family Medicine 04/11/22 Chasity De La O NP [address] [place] [address] Nurse Practitioner Family Medicine 06/07/23 Art Critic Relationship Specialty Start Date End Date Archie Yeboah MD [address] [place] [address] PCP - General Family Medicine 06/07/23 Chasity De La O NP [address] [place] [address] Nurse Practitioner Family Medicine 04/11/22 Chasity De La O NP [address] [place] [address] Nurse Practitioner Family Medicine 06/07/23 Art Critic Relationship Specialty Start Date End Date Archie Yeboah MD [address] [place] [address] PCP - General Family Medicine 06/07/23 Chasity De La O NP [address] [place] [address] Nurse Practitioner Family Medicine 04/11/22 Chasity De La O NP [address] [place] [address] Nurse Practitioner Family Medicine 06/07/23 Art Critic Relationship Specialty Start Date End Date Archie Yeboah MD [address] [place] [address] PCP - General Family Medicine 06/07/23 Chasity De La O NP [address] [place] [address] Nurse Practitioner Family Medicine 04/11/22 Chasity De La O NP [address] [place] [address] Nurse Practitioner Family Medicine 06/07/23 Art Critic Relationship Specialty Start Date End Date Archie Yeboah MD [address] [place] [address] PCP - General Family Medicine 06/07/23 Chasity De La O NP [address] [place] [address] Nurse Practitioner Family Medicine 04/11/22 Chasity De La O NP [address] [place] [phone] Nurse Practitioner Family Medicine 06/07/23 Art Critic Relationship Specialty Start Date End Date Archie Yeboah MD [address] [place] [address] PCP - General Family Medicine 06/07/23 Chasity De La O NP [address] [place] [address] Nurse Practitioner Family Medicine 04/11/22 Chasity De La O NP [address] [place] [address] Nurse Practitioner Family Medicine 06/07/23 Art Critic Relationship Specialty Start Date End Date Archie Yeboah MD [address] [place] [phone] PCP - General Family Medicine 06/07/23 Chasity De La O NP [address] [place] [address] Nurse Practitioner Family Medicine 04/11/22 Chasity De La O NP [address] [place] [address] Nurse Practitioner Family Medicine 06/07/23 Art Critic Relationship Specialty Start Date End Date Archie Yeboah MD [address] [place] [address] PCP - General Family Medicine 06/07/23 Chasity De La O NP [address] [place] [address] Nurse Practitioner Family Medicine 04/11/22 Chasity De La O NP [address] [place] [address] Nurse Practitioner Family Medicine 06/07/23 Art Critic Relationship Specialty Start Date End Date Archie Yeboah MD [address] [place] [phone] PCP - General Family Medicine 06/07/23 Chasity De La O NP [address] [place] [address] Nurse Practitioner Family Medicine 04/11/22 Chasity De La O NP [address] [place] [address] Nurse Practitioner Family Medicine 06/07/23 Reason for Visit (unrecogniz ed section and content) Reason Comments Med Refill FOR RECORDS PERTAINING TO PATIENTS WHO ARE [...] BE BASED ON THE PRIMARY CLINICAL RECORDS. [employer] provides no warranty or guarantee of the accuracy or completeness of information in this document.
--- NOTE | 2024-07-05 09:44 | XR_ITS ---
[address] [address] Patient Name: ANDREA TORIBIO MRN: [id number] date: 1965 Sex: F Assigned Patient Location: LAB Current Patient Location: LAB Accession/Order Number: [id number] Exam Date: 07/05/2024 12:42 Report Date: 07/05/2024 12:43 At the request of: [facility] PERSONNEL DIRECTOR Procedure: XR knee LT 2V 2 views left knee plain film COMPARISON: None HISTORY: Posterior knee pain for one day ACUTE FINDINGS: No acute findings DEGENERATIVE CHANGE: Unremarkable SOFT TISSUE FINDINGS: Unremarkable JOINT EFFUSION: None POSTOP CHANGES: None BONE MINERALIZATION: Adequate XR/XR knee LT 2V IMPRESSION: Unremarkable exam Impression dictated by: Jasvir Gutierrez M.D.07/05/2024 12:43 PM Dictation Location: [place] [address] Electronically authenticated by: [id number] Y Date: 07/05/2024 12:43
[2024-07-05 09:59] LABS: Basophils Percent Auto 0.5 % (0.2-2.0); Eosinophils Absolute Auto 0.1 10^3/uL (0.0-0.7); Eosinophils Percent Auto 2.1 % (0.9-7.0); Hematocrit 40.1 % (36.0-48.0); Hemoglobin 13.6 g/dL (12.0-16.0); Immature Granulocytes Abs Auto 0.02 10^3/uL (0.00-0.03); Immature Granulocytes Pct Auto 0.3 % (0.0-0.5); Lymphocytes Absolute Auto 2.5 10^3/uL (1.2-3.8); Lymphocytes Percent Auto 40.7 % (20.5-60.0); Mean Corpuscular HGB Conc 33.9 g/dL (29.9-35.2); Mean Corpuscular Hemoglobin 31.2 pg (26.7-34.0); Mean Platelet Volume 11.8 fL (9.5-13.5); Monocytes Absolute Auto 0.4 10^3/uL (0.3-0.8); Monocytes Percent Auto 7.1 % (1.7-12.0); Neutrophils Absolute Auto 3.1 10^3/uL (1.4-6.5); Neutrophils Percent Auto 49.3 % (43.0-75.0); Platelet Count 247 10^3/uL (150-450); Red Blood Count 4.36 10^6/uL (4.20-5.40); Red Cell Distribution Width 12.9 % (11.0-15.0); White Blood Count 6.2 10^3/uL (4.0-11.0)
[2024-07-05 10:22] LABS: Bilirubin Urine NEGATIVE (NEGATIVE); Blood Urine NEGATIVE (NEGATIVE); Clarity Urine CLEAR (CLEAR); Color Urine LT. YELLOW (YELLOW); Glucose Urine UA NEGATIVE (NEGATIVE); Ketones Urine NEGATIVE (NEGATIVE); Leukocyte Esterase Urine NEGATIVE (NEGATIVE); Nitrite Urine NEGATIVE (NEGATIVE); Protein Urine NEGATIVE (NEG/TRACE); Specific Gravity Urine 1.025 (1.005-1.025); Urobilinogen Urine 0.2 EU/dL (0.2-1.0)
[2024-07-05 10:36] LABS: Urine Microscopic Indicated NO
[2024-07-05 11:00] LABS: Creatinine Urine Random 109.99 mg/dL (20.00-300.00); Microalbum Creatinine Ratio Ur 11.8 mg/g (0.0-29.9); Microalbumin Urine Random <1.3 mg/dL (<=30.0)
[2024-07-05 11:07] LABS: Alanine Aminotransferase 23 U/L (14-59); Albumin Globulin Ratio 1.1; Albumin Level 3.7 g/dL (3.4-5.0); Alkaline Phosphatase 133 U/L (46-116); Anion Gap 13.4; Aspartate Amino Transferase 14 U/L (15-37); BUN Creatinine Ratio 22.5; Bilirubin Total 0.3 mg/dL (0.2-1.0); Calcium 8.7 mg/dL (8.5-10.1); Carbon Dioxide 26.8 mmol/L (21.0-32.0); Chloride 104 mmol/L (98-107); Chol HDL Ratio 2.7; Cholesterol 123 mg/dL (<=200); Estimated GFR (African America >60 (>=60 mL/min/1.73m^2); Estimated GFR (Non-African Ame >60 (>=60 mL/min/1.73m^2); Globulin 3.5 g/dL; Glucose 89 mg/dL (74-106); HDL Cholesterol 45 mg/dL (40-60); LDL Cholesterol Calculated 51.8 mg/dL; Potassium 4.2 mmol/L (3.5-5.1); Sodium 140 mmol/L (136-145); Thyroid Stimulating Hormone 0.954 uIU/mL (0.358-3.740); Total Protein 7.2 g/dL (6.4-8.2); Triglycerides 131 mg/dL (<=150); VLDL CHOLESTEROL 26.2 mg/dL
[2024-07-05 11:51] LABS: Estimated Average Glucose 114 mg/dL; Glycohemoglobin A1C 5.6 % (4.5-6.2)
== END 2024-07-05 09:18 | disposition home or self-care (01) ==
LOC: LAB 09:19
PROVIDERS: PCP Nurse Practitioner; Visit Provider Nurse Practitioner
DX: R12 Heartburn (principal); F33.40 Major depressive disorder, recurrent, in remission, unspecified; E55.9 Vitamin D deficiency, unspecified; E78.2 Mixed hyperlipidemia; R73.09 Other abnormal glucose; M25.562 Pain in left knee; G89.29 Other chronic pain
CPT/HCPCS: 36415; 73560; 80053; 80061; 81003; 82043; 82306; 82570; 83036; 84443; 85025

== ENCOUNTER 2024-12-19 13:58 | Outpatient (OUT) | payer MEDICARE, MEDICAID, SELFPAY ==
--- OUTSIDE RECORDS SUMMARY | 2024-12-19 14:00 | XMS_ITS | Encounter Summary ---
Author Organization [facility] Address [id number] [address] [place] [address] Care Team Providers Care Kennel Attendant Name Role Phone Archie Yeboah MD Primary Care Provider [phone] Encounter Details Date Type Department Care Team (Late st Contact Info) Description 04/23/2020 Orders Only [facility] [address] [facility] [facility] [place] [address] [place] [address] Maia Gregory MA Lives in fpc; Close exposure to COVID-19 virus Social History Tobacco Use Types Packs/Day Years Used Date Smoking Tobacco: Never Smokeless Tobacco: Never Alcohol Use Standard Drinks/Week Comments No 0 (1 standard drink = 0.6 oz pur e alcohol) PHQ-2 Answer Date Recorded PHQ-2 Score 0 04/08/2018 Childcare Answer Date Recorded Childcare Unknown 09/11/2018 Employment Answer Date Recorded Employment Unknown 09/11/2018 Purpose - Life Answer Date Recorded Purpose and direction in life Unknown Comments No Sex and Gender Information Value Date Recorded Sex Assigned at Not on file Legal Sex Female 11:42 AM EDT Gender Identity Not on file Sexual Orientation Not on file documented as of this encounter Plan of Treatment Not on file documented as of this encounter Procedures Procedure Name Priority Date/Time Associated Diagnosis Comments SARS-COV-2 IGG Routine 04/22/2020 Lives in fpc Close exposure to COVID-19 virus documented in this encounter Results * SARS-CoV-2 IgG (04/22/2020) 04/22/2020 us Radha Silver APRN-MACHINE CAPTAIN LAB BLOOD ORDERABLES Edited Result - Final SUNQUEST documented in this encounter Visit Diagnoses Diagnosis Lives in fpc Close exposure to COVID-19 virus documented in this encounter Additional Health Concerns Infection Onset Date Last Indicated Resolved Time COVID-19 Positive 10/19/2021 10/19/2021 11/09/2021 11:12 PM EDT Assessment Noted Time PHQ-9 Depression Total Score: 0 03/20/20 20 9:39 AM EST A Body Mass Index follow-up plan has been documented for the patient 03/25/2020 7:32 AM EST documented as of this encounter Care Teams Kennel Attendant Relationship Specialty Start Date End Date Archie Yeboah MD PCP - General Family Medicine 12/28/22 documented as of this encounter
--- OUTSIDE RECORDS SUMMARY | 2024-12-19 14:00 | XMS_ITS | Encounter Summary ---
Author Organization [facility] Address [id number] [address] [place] [address] Care Team Providers Care Printing Machine Mechanic Name Role Phone Archie eYboah MD Primary Care Provider [phone] Reason for Visit * Reason Onset Date Comments Med Refill Med Refill 09/24/2020 Encounter Details Date Type Department Care Team (Late st Contact Info) Description 09/04/2020 Refill [facility] [address] [place] [address] [address] Radha Silver, LINE LEAD-SAMPLE TESTER [address] [place] [address] Acute seasonal allergic rhinitis Social History Tobacco Use Types Packs/Day Years Used Date Smoking Tobacco: Never Smokeless Tobacco: Never Alcohol Use Standard Drinks/Week Comments No 0 (1 standard drink = 0.6 oz pur e alcohol) PHQ-2 Answer Date Recorded Total Score 0 08/27/2020 Childcare Answer Date Recorded Childcare Unknown 09/11/2018 Employment Answer Date Recorded Employment Unknown 09/11/2018 Purpose - Life Answer Date Recorded Purpose and direction in life Unknown Comments No Sex and Gender Information Value Date Recorded Sex Assigned at Not on file Legal Sex Female 11:42 AM EDT Gender Identity Not on file Sexual Orientation Not on file COVID-19 Exposure Response Date Recorded In the last month, have you been in contact with someone who was confirmed or suspected to have Coronavirus / COVID-19? No / Unsure 08/27/2020 9:20 AM EDT documented as of this encounter Plan of Treatment Not on file documented as of this encounter Visit Diagnoses Diagnosis Acute seasonal allergic rhinitis documented in this encounter Additional Health Concerns Infection Onset Date Last Indicated Resolved Time COVID-19 Positive 10/19/2021 10/19/2021 11/09/2021 11:12 PM EDT Assessment Noted Time PHQ-9 Depression Total Score: 0 08/28/19 9:28 AM EDT A Body Mass Index follow-up plan has been documented for the patient 08/27/2020 7:58 PM EDT documented as of this encounter Care Teams Printing Machine Mechanic Relationship Specialty Start Date End Date Archie Yeboah MD PCP - General Family Medicine 12/28/22 documented as of this encounter
--- OUTSIDE RECORDS SUMMARY | 2024-12-19 14:00 | XMS_ITS | Encounter Summary ---
Author Organization [facility] Address [facility] [id number] [address] [place] [address] Care Team Providers Care In Flight Refueling System Repairer Name Role Phone Archie Yeboah MD Primary Care Provider [phone] Reason for Visit * Reason Comments Med Refill Encounter Details Date Type Department Care Team (Late st Contact Info) Description 07/14/2020 Refill [facility] [address] [facility] [place] [address] [place] [address] Radha Silver, PHARMACY SERVICES DIRECTOR-EVENT DECORATOR AND DESIGNER [address] [place] [address] Chronic allergic rhinitis due to pollen; Chronic pain of right knee Social History Tobacco Use Types Packs/Day Years Used Date Smoking Tobacco: Never Smokeless Tobacco: Never Alcohol Use Standard Drinks/Week Comments No 0 (1 standard drink = 0.6 oz pur e alcohol) PHQ-2 Answer Date Recorded Total Score 0 06/26/2020 Childcare Answer Date Recorded Childcare Unknown 09/11/2018 [...] have Coronavirus / COVID-19? No / Unsure 06/26/2020 9:54 AM EDT documented as of this encounter Plan of Treatment Not on file documented as of this encounter Visit Diagnoses Diagnosis Chronic allergic rhinitis due to pollen Chronic pain of right knee documented in this encounter Additional Health Concerns Infection Onset Date Last Indicated Resolved Time COVID-19 Positive 10/19/2021 10/19/2021 11/09/2021 11:12 PM EDT Assessment Noted Time PHQ-9 Depression Total Score: 0 06/27/19 9:56 AM EDT A Body Mass Index follow-up plan has been documented for the patient 06/26/2020 7:04 PM EDT documented as of this encounter Care Teams In Flight Refueling System Repairer Relationship Specialty Start Date End Date Archie Yeboah MD PCP - General Family Medicine 12/28/22 documented as of this encounter
--- OUTSIDE RECORDS SUMMARY | 2024-12-19 14:00 | XMS_ITS | Encounter Summary ---
Author Organization [facility] Address [facility] [id number] [address] [place] [address] Care Team Providers Care Cheese Wrapper Name Role Phone Archie Yeboah MD Primary Care Provider [phone] Encounter Details Date Type Department Care Team (Late st Contact Info) Description 07/08/2020 Refill [facility] [address] [place] [address] [place] [address] Maia Gregory MA Constipation, unspecified constipation type; External hemorrhoids; Chronic pain of right knee; GERD without esophagitis; Mixed hyperlipidemia Social History Tobacco Use Types Packs/Day Years [...] AM EDT documented as of this encounter Miscellaneous Notes * Telephone Encounter - Maia Gregory MA - 07/08/2020 1:35 PM EDT She needs all meds to go to [facility] now, she is no longer going to self medicate, she will get dispensed meds Pended all Maia Gregory MA 07/08/20 1337 documented in this encounter Plan of Treatment Not on file documented as of this encounter Visit Diagnoses Diagnosis Constipation, unspecified constipation type External hemorrhoids External hemorrhoids without mention of complication Chronic pain of right knee GERD without esophagitis Esophageal reflux Mixed hyperlipidemia documented in this encounter Additional Health Concerns Infection Onset Date Last Indicated Resolved Time COVID-19 Positive 10/19/2021 10/19/2021 11/09/2021 11:12 PM EDT Assessment Noted Time PHQ-9 Depression Total Score: 0 06/27/19 9:56 AM EDT A Body Mass Index follow-up plan has been documented for the patient 06/26/2020 7:04 PM EDT documented as of this encounter Care Teams Cheese Wrapper Relationship Specialty Start Date End Date Archie Yeboah MD PCP - General Family Medicine 12/28/22 documented as of this encounter
--- OUTSIDE RECORDS SUMMARY | 2024-12-19 14:00 | XMS_ITS | Encounter Summary ---
Author Organization [facility] Address [facility] [id number] [address] [place] [address] Care Team Providers Care Child Development Director Name Role Phone Archie Yeboah MD Primary Care Provider Encounter Details Date Type Department Care Team (Late st Contact Info) Description 07/08/2020 Refill [facility] [address] [facility] [place] [address] [place] [address] Maia Gregory MA Type 2 diabetes mellitus with hyperglycemia, without long-term current use of insulin ([facility]) (Primary Dx) Social History Tobacco Use Types Packs/Day Years [...] Encounter - Maia Gregory MA - 07/08/2020 1:52 PM EDT She is calling because blood sugars are to be checked, but they don't have glucometer and supplies on her. Pended and [facility] like to [facility] Maia Gregory MA 07/08/20 1355 documented in this encounter Plan of Treatment Not on file documented as of this encounter Visit Diagnoses Diagnosis Type 2 diabetes mellitus with hyperglycemia, without long-term current use of insulin ([facility])- Primary documented in this encounter Additional Health Concerns Infection Onset Date Last Indicated Resolved Time COVID-19 Positive 10/19/2021 10/19/2021 11/09/2021 11:12 PM EDT Assessment Noted Time PHQ-9 Depression Total Score: 0 06/27/19 21 9:56 AM EDT A Body Mass Index follow-up plan has been documented for the patient 06/26/2020 7:04 PM EDT documented as of this encounter Care Teams Child Development Director Relationship Specialty Start Date End Date Archie Yeboah MD PCP - General Family Medicine 12/28/22 documented as of this encounter
--- OUTSIDE RECORDS SUMMARY | 2024-12-19 14:00 | XMS_ITS | Encounter Summary ---
Author Organization [facility] Address [facility] [id number] [address] [place] [address] Care Team Providers Care Mission Analyst Name Role Phone Archie Yeboah MD Primary Care Provider [phone] Reason for Visit * Reason Comments Med Refill Encounter Details Date Type Department Care Team (Late st Contact Info) Description 06/10/2023 Refill [facility] [address] [facility] [place] [address] Radha Silver, TABLE OPERATOR-MORTGAGE SPECIALIST [address] [place] [address] Anxiety and depression; Vitamin D deficiency; Acute seasonal allergic rhinitis Social History Tobacco Use Types Packs/Day Years Used Date Smoking Tobacco: Never Smokeless Tobacco: Never Alcohol Use Standard Drinks/Week Comments No 0 (1 standard drink = 0.6 oz pur e alcohol) PHQ-2 Answer Date Recorded Total Score 0 08/11/2022 Childcare Answer Date Recorded Childcare Unknown 09/11/2018 Employment Answer Date Recorded Employment Unknown 09/11/2018 Hunger Screening Answer Date Recorded Within the past 12 months we worried whether our food would run out before we got money to buy more. Never True 04/28/2022 Within the past 12 months th e food we bought just didn't last and we didn't have money to get more. Never True 04/28/2022 Purpose - Life Answer Date Recorded Purpose and direction in life Unknown Comments No Sex and Gender Information Value Date Recorded Sex Assigned at Not on file Legal Sex Female 11:42 AM EDT Gender Identity Not on file Sexual Orientation Not on file documented as of this encounter Plan of Treatment Not on file documented as of this encounter Visit Diagnoses Diagnosis Anxiety and depression Vitamin D deficiency Acute seasonal allergic rhinitis documented in this encounter Additional Health Concerns Assessment Noted Time PHQ-9 Depression Total Score: 0 08/12/19 2:40 PM EDT A Body Mass Index follow-up plan has been documented for the patient 08/16/2022 6:09 AM EDT documented as of this encounter Care Teams Mission Analyst Relationship Specialty Start Date End Date Archie Yeboah MD PCP - General Family Medicine 12/28/22 documented as of this encounter
--- OUTSIDE RECORDS SUMMARY | 2024-12-19 14:00 | XMS_ITS | Encounter Summary ---
Author Organization [facility] Address [facility] [id number] [address] [place] [address] Care Team Providers Care Garment Manufacturer Name Role Phone Archie Yeboah MD Primary Care Provider [phone] Reason for Visit * Reason Comments Med Refill Encounter Details Date Type Department Care Team (Late st Contact Info) Description 07/08/2023 Refill [facility] [address] [facility] [place] [address] Radha Silver, ASSISTANT COUNSEL-SANDING MACHINE TENDER AUTOMATIC [address] [place] [address] Constipation, unspecified constipation type; External hemorrhoids Social History Tobacco Use Types Packs/Day Years [...] hemorrhoids External hemorrhoids without mention of complication documented in this encounter Additional Health Concerns Assessment Noted Time PHQ-9 Depression Total Score: 0 08/12/19 2:40 PM EDT A Body Mass Index follow-up plan has been documented for the patient 08/16/2022 6:09 AM EDT documented as of this encounter Care Teams Garment Manufacturer Relationship Specialty Start Date End Date Archie Yeboah MD PCP - General Family Medicine 12/28/22 documented as of this encounter
--- OUTSIDE RECORDS SUMMARY | 2024-12-19 14:00 | XMS_ITS | Encounter Summary ---
Author Organization [facility] Address [facility] [id number] [address] [place] [address] Care Team Providers Care Workers Compensation Adjuster Name Role Phone Archie Yeboah MD Primary Care Provider Reason for Visit * Reason Comments Med Refill Encounter Details Date Type Department Care Team (Late st Contact Info) Description 10/07/2020 Refill [facility] [address] [facility] [place] [address] Radha Silver, APPLIED MATHEMATICIAN-SHELL TRIM TOOL SETTER [address] [place] [address] GERD without esophagitis; Type 2 diabetes mellitus with hyperglycemia, without long-term current use of insulin ([facility]) Social History Tobacco Use Types Packs/Day Years [...] have Coronavirus / COVID-19? No / Unsure 09/19/2020 4:36 PM EDT documented as of this encounter Miscellaneous Notes * Telephone Encounter - Maia Gregory MA - 10/07/2020 10:25 AM EDT CAREGIVER, NEEDING SOME RX'S SENT TO DIFFERENT PHARMACIES, PENDED WHERE ON EACH documented in this encounter Plan of Treatment Not on file documented as of this encounter Visit Diagnoses Diagnosis GERD without esophagitis Esophageal reflux Type 2 diabetes mellitus with hyperglycemia, without long-term current use of insulin ([facility]) documented in this encounter Additional Health Concerns Infection Onset Date Last Indicated Resolved Time COVID-19 Positive 10/19/2021 10/19/2021 11/09/2021 11:12 PM EDT Assessment Noted Time PHQ-9 Depression Total Score: 0 08/28/19 21 9:28 AM EDT A Body Mass Index follow-up plan has been documented for the patient 08/27/2020 7:58 PM EDT documented as of this encounter Care Teams Workers Compensation Adjuster Relationship Specialty Start Date End Date Archie Yeboah MD PCP - General Family Medicine 12/28/22 documented as of this encounter
--- OUTSIDE RECORDS SUMMARY | 2024-12-19 14:00 | XMS_ITS | Encounter Summary ---
Author Organization [facility] Address [facility] [id number] [address] [place] [address] Care Team Providers Care Material Liaison Name Role Phone Archie Yeboah MD Primary Care Provider [phone] Reason for Visit * Reason Comments Med Refill Encounter Details Date Type Department Care Team (Late st Contact Info) Description 06/16/2023 Refill [facility] [address] [facility] [place] [address] Radha Silver, DUST BOX WORKER-INTERMEDIATE ACCOUNTANT [address] [place] [address] Acute seasonal allergic rhinitis Social History Tobacco [...] documented as of this encounter Care Teams Material Liaison Relationship Specialty Start Date End Date Archie Yeboah MD PCP - General Family Medicine 12/28/22 documented as of this encounter
--- OUTSIDE RECORDS SUMMARY | 2024-12-19 14:00 | XMS_ITS | Clinical Summary ---
Author Organization [facility] Address [facility] [id number] [address] [place] [address] Care Team Providers Care Library Manager Name Role Phone Archie Yeboah MD Primary Care Provider [phone] Allergies No known active allergies Medications alum-mag hydroxide-simeth (MAALOX) 200-200-20 mg/5 mL suspensionIndicati ons:GERD without esophagitis Take 30 mL by mouth every 4 (four) hours as needed for cramping, indigestion or heartburn. 354 mL 3 09/19/19 19 Active blood-glucose meter (glucose monitoring kit) kitIndications:Typ e 2 diabetes mellitus with hyperglycemia, without long-term current use of insulin ([facility] [place] Monitor blood sugars every morning before breakfast and at dinner time. 1 each 07/09/19 21 Active lancets miscIndications:Ty pe 2 diabetes mellitus with hyperglycemia, without long-term current use of insulin ([facility] [place]) Inject 1 applicator into the skin 2 (two) times a day. 100 each 3 10/09/19 21 Active blood sugar diagnostic (glucose blood) stripIndications:T ype 2 diabetes mellitus with hyperglycemia, without long-term current use of insulin ([facility] [place]) Monitor blood sugars every morning before breakfast and at dinner time. 70 strip 2 08/04/19 22 Active TAMRA-GEST ANTACID 200 mg calcium (500 mg) chewable tabletIndications: Heartburn TAKE 1 TABLET BY MOUTH ONCE DAILY NEEDED FOR HEARTBURN OR INDIGESTION *CALL PHARMACY FOR REFILLSOK TO CHARGE* 90 tablet 2 02/04/20 22 Active ibuprofen (MOTRIN) 800 mg tabletIndications: Arthritis of both knees take 1 tablet by mouth every 8 hours if needed for pain 60 tablet 6 06/10/19 23 Active rosuvastatin (CRESTOR) 10 mg tabletIndications: Mixed hyperlipidemia GIVE 1 TABLET BY MOUTH EVERY EVENING (8PM) 90 tablet 2 07/10/19 23 Active omeprazole (PriLOSEC) 20 mg capsuleIndications :GERD without esophagitis TAKE 1 CAPSULE BY MOUTH ONCE DAILY (8PM) 90 capsule 1 08/07/19 23 Active fluticasone propionate (FLONASE) 50 mcg/actuation nasal sprayIndications:C hronic allergic rhinitis due to pollen USE 2 SPRAYS IN EACH NOSTRIL ONCE DAILY *CALL PHARMACY FOR REFILLS* 16 g 10 08/19/19 23 Active acetaminophen (TYLENOL EXTRA STRENGTH) 500 mg tabletIndications: Pain,Fever, unspecified fever cause GIVE 1 TABLET BY MOUTH EVERY 6 HOURS NEEDED FOR HEADACHE, GENERAL BODY PAIN NOT INCLUDING LEG PAIN OR FEVER>100.4 30 tablet 2 08/19/19 23 Active FLUoxetine (PROzac) 10 mg capsuleIndications :Anxiety and depression GIVE 1 CAPSULE BY MOUTH ONCE DAILY FOR DEPRESSION. MAY TAKE LATER IF SHE SLEEPS IN 90 capsule 3 08/24/19 23 Active loratadine (CLARITIN) 10 mg tabletIndications: Acute seasonal allergic rhinitis GIVE 1 TABLET BY MOUTH ONCE DAILY (8PM) 90 tablet 3 08/24/19 23 Active docusate sodium (COLACE) 100 mg capsuleIndications :Constipation, unspecified constipation type,External hemorrhoid GIVE 2 CAPSULES (200MG) BY MOUTH DAILY AT BEDTIME DX: CHRONIC CONSTIPATION MAY HOLD IF LOOSE STOOLS 60 capsule 10 09/08/19 23 Active cholecalciferol, vitamin D3, (VITAMIN D3) 5,000 units capsuleIndications :Vitamin D deficiency GIVE 1 CAPSULE BY MOUTH DAILY AT BEDTIME 90 capsule 1 12/26/19 23 Active Active Problems Problem Noted Date Diagnosed Date Family history of diabetes mellitus 09/05/2019 Chronic allergic rhinitis due to pollen 06/04/19 20 Arthritis of both knees 03/26/2019 Asymptomatic menopause 09/14/2018 Need for prophylactic vaccin ation with combined miisogemny-pgdkihw-vudtdflmo (DTP) vaccine 09/14/2018 Elevated glucose level 08/29/2018 Right knee pain 05/08/2018 Fall 05/08/2018 Lumbar back pain 05/08/2018 Need for immunization against influenza 01/25/20 18 Pelvic pain 12/20/2017 Constipation 12/20/2017 Impacted cerumen of right ear 11/28/2017 Medicare annual wellness visit, subsequent 06/27 BMI 28.0-28.9,adult 06/27/2017 Mixed hyperlipidemia 06/21/2017 Other disorders of psychological development 03/2018 Encounter for screening for cardiovascular disor ders 06/20/2017 Abnormal developmental screening 06/20/2017 GERD without esophagitis 06/16/2017 Blood tests for routine general physical examina tion 06/16/2017 Resolved Problems Problem Noted Date Diagnosed Date Resolved Date Acute mucoid otitis media of left ear 12/02/2020 08/10/2021 Bronchitis 06/18/2019 03/25/2020 Cough 06/18/2019 08/10/2021 Congestion of paranasal sinus 06/04/2019 06/26/2020 Acute non-recurrent pansinusitis 06/04/2019 03/25/2020 Nausea and vomiting 09/18/2018 03/25/20 20 External hemorrhoids 12/20/2017 022 Acute non-recurrent ethmoidal sinusitis 11/28/2017 03/25/2020 Sore throat 11/28/2017 03/25/2020 Immunizations Immunization Administration Dates Next Due Influenza, Injectable, quadr ivalent (PF) 03/22/2022,01/22/2021,03/20/2020,2018,01/19/2018 Tdap 08/29/2018 Family History Medical History Relation Name Comments Hypertension Brother 1 Drug abuse Brother 2 Cancer Brother 3 Cancer Brother 4 Lung cancer Father Diabetes Mother Heart disease Mother Relation Name Status Comments Brother 1 Alive Brother 2 Brother 3 Brother 4 Father Mother Social History Tobacco Use Types Packs/Day Years Used Date Smoking Tobacco: Never Smokeless Tobacco: Never Tobacco Cessation:Counseling Given: No Alcohol Use Standard Drinks/Week Comments No 0 [...] on file Sexual Orientation Not on file Last Filed Vital Signs Vital Sign Reading Time Taken Comments Blood Pressure 140/80 08/11/2022 2:47 PM EDT Pulse 83 08/11/2022 2:47 PM EDT Temperature 36.2 C (97.2 F) 08/11/2022 2:47 PM EDT Respiratory Rate 16 04/28/2022 2:57 PM EST Oxygen Saturation 93% 08/11/2022 2:47 PM EDT Inhaled Oxygen Concentration - - Weight 67.3 kg (148 lb 6.4 oz) 08/11/2022 2:47 P M EDT Height 152.4 cm (5') 08/11/2022 2:47 PM EDT Body Mass Index 28.98 08/11/2022 2:47 PM EDT Plan of Treatment Health Maintenance Due Date Last Done Comments Tobacco Screening 1977 Zoster (Shingles) Vaccine (1 of 2) 09/03/2015 Colonoscopy 09/23/2022 09/24/2019, 09/24/2019 Mammogram 12/01/2022 12/01/2021, 07/09/2020, 11/19/2019, Additional history exists Adult BMI Screening 08/12/2023 08/11/2022 Depression Screening 08/12/2023 08/11/2022 COVID-19 Vaccine (3 - 2023-2 5 season) 2023 04/29/2021, 06/05/2020 DTaP,Tdap and Td Vaccines (2 - Td or Tdap) 08/29/2028 08/29/2018 Pap Smear Discontinued 08/19/2015 Medical Devices Not on file Procedures Procedure Name Priority Date/Time Associated Diagnosis Comments MAMM SCREENING BILATERAL W CAD Routine 12/01/2021 3:25 PM EDT Encounter for screening mammogram for malignant neoplasm of breast COLONOSCOPY 09/24/2019 8:00 AM EDT HIGH RISK HPV W/THERESE Routine 08/19/2015 from Last 3 Months or Most Recently Relevant to Health Maintenance Results * Mammography screening bilateral with CAD (12/01/2021 3:25 PM EDT) Anatomical Region Laterality Modality Breast Bilateral Mammography Radha Silver APRN-STEEPLECHASE [facility] ORDYaa SAUCEDO Final Result * Colonoscopy (09/24/2019 8:00 AM EDT) 09/24/2019 8:00 AM EDT Narrative PM CARDIOVASCULAR - 09/24/2019 8:31 AM EDT [facility] [place] Patient Name: Luisa Ferraro Procedure Date No Time: 09/24/2019 CSN : [id number] Date of : 1965 Admit Type: Outpatient Age: 54 Room: [place] [address] Gender: Female Note Status: Finalized Attending MD: Ciaran Stockton DO Procedure: Colonoscopy Indications: Screening for colorectal malignant neoplasm Providers: Ciaran Stockton DO Medicines: Propofol per Anesthesia Complications: No immediate complications. Procedure: After I obtained informed consent, the scope was passed under direct vision. Throughout the procedure, the patient's blood pressure, pulse, and oxygen saturations were monitored continuously. The [employer] [id number] #[id number] ADULT COLONOSCOPE was introduced through the anus and advanced to the cecum, identified by appendiceal orifice and ileocecal valve. The colonoscopy was performed without difficulty. The patient tolerated the procedure well. The quality of the bowel preparation was excellent. Findings: The perianal and digital rectal examinations were normal. A 7 mm polyp was found in the distal sigmoid colon. The polyp was sessile. The polyp was removed with a hot snare. Resection and retrieval were complete. The exam was otherwise without abnormality on direct and retroflexion views. Estimated Blood Loss: Estimated blood loss: none. Impression: - One 7 mm polyp in the distal sigmoid colon, removed with a hot snare. Resected and retrieved. - The examination was otherwise normal on direct and retroflexion views. Recommendation: - Discharge patient to home. - Repeat colonoscopy in 3 years for surveillance based on pathology results. - Return to my office in 1 week. Procedure Code(s): --- Professional --- 33613, Colonoscopy, flexible; with removal of tumor(s), polyp(s), or other lesion(s) by snare technique Diagnosis Code(s): --- Professional --- K63.5, Polyp of colon Z12.11, Encounter for screening for malignant neoplasm of colon CPT copyright 2019 [employer]. All rights reserved. The codes documented in this report are preliminary and upon stock saw operator review may be revised to meet current compliance requirements. DO Ciaran Robbins DO 09/24/2019 8:31:19 AM Number of Addenda: 0 Note Initiated On: 09/24/2019 8:00 AM Procedure Note Ciaran Stockton DO - 09/24/2019 [facility] [place] Patient Name: Luisa Ferraro Procedure Date No Time: 09/24/2019 CSN : [id number] Date of : 1965 Admit Type: Outpatient Age: 54 Room: [place] [address] Gender: Female Note Status: Finalized Attending MD: Ciaran Stockton DO Procedure: Colonoscopy Indications: Screening for colorectal malignant neoplasm Providers: Ciaran Stockton DO Medicines: Propofol per Anesthesia Complications: No immediate complications. Procedure: After I obtained informed consent, the scope waspassed under direct vision. Throughout the procedure, the patient's blood pressure, pulse, and oxygensaturations were monitored continuously. The [employer] [id number] #[id number] ADULT COLONOSCOPE was introduced throughthe anus and advanced to the cecum, identified by appendiceal orifice and ileocecal valve. The colonoscopy was performed without difficulty. The patient tolerated the procedure well. The quality of the bowel preparation was excellent. Findings: The perianal and digital rectal examinations were normal. A 7 mm polyp was found in the distal sigmoid colon. The polyp was sessile. The polyp was removed with a hot snare. Resection andretrieval were complete. The exam was otherwise without abnormality on direct and retroflexion views. Estimated Blood Loss: Estimated blood loss: none. Impression: - One 7 mm polyp in the distal sigmoid colon,removed with a hot snare. Resected and retrieved. - The examination was otherwise normal on direct and retroflexion views. Recommendation: - Discharge patient to home. - Repeat colonoscopy in 3 years for surveillancebased on pathology results. - Return to my office in 1 week. Procedure Code(s): --- Professional --- 23250, Colonoscopy, flexible; with removal oftumor(s), polyp(s), or other lesion(s) by snare technique Diagnosis Code(s): --- Professional --- K63.5, Polyp of colon Z12.11, Encounter for screening for malignant neoplasm of colon CPT copyright 2019 [employer]. All rights reserved. The codes documented in this report are preliminary and upon stock saw operator reviewmay be revised to meet current compliance requirements. DO Ciaran Robbins DO 09/24/2019 8:31:19 AM Number of Addenda: 0 Note Initiated On: 09/24/2019 8:00 AM us Ciaran Stockton DO GI PROCEDURE ORDERABLES Fin al Result Performing Organization Address [facility] Co de Phone Number PM CARDIOVASCULAR * High risk HPV w/therese (08/19/2015) us Not In System Ref Prov LAB BLOOD ORDERABLES Anne-Marie l Result Performing Organization Address City/[facility] Co de Phone Number MANUALLY TRANSCRIBED LAB RESULTS from Last 3 Months or Most Recently Relevant to Health Maintenance Insurance MEDICARE [place]ICAID [place] Member Subscriber Plan / Payer (Ef fective 2017-Present) Name:Luisa Ferraro Relation to Subscriber:Self Name:Luisa Ferraro Payer ID:Not on file Group ID:Not on file Type:Not on file Address: [place] [id number] Care Teams Library Manager Relationship Specialty Start Date End Date Archie Yeboah MD PCP - General Family Medicine 12/28/22
--- OUTSIDE RECORDS SUMMARY | 2024-12-19 14:00 | XMS_ITS | Encounter Summary ---
Author Organization [email or web address] Address [facility] [id number] [address] [place] [address] Care Team Providers Care Analysis Engineer Name Role Phone Archie Yeboah MD Primary Care Provider [phone] Reason for Visit * Reason Comments Med Refill Encounter Details Date Type Department Care Team (Late st Contact Info) Description 09/14/2023 Refill [facility] [address] [facility] [place] [address] [place] [address] Radha Silver, ACADEMIC ASSOCIATE-LATHE MECHANIC [address] [place] [address] Chronic allergic rhinitis due to pollen Social History Tobacco Use Types Packs/Day Years [...] on file documented as of this encounter Miscellaneous Notes * Telephone Encounter - ANIVAL Wasserman - 09/14/2023 7:48 AM EDT No longer my patient documented in this encounter Plan of Treatment Not on file documented as of this encounter Visit Diagnoses Diagnosis Chronic allergic rhinitis due to pollen documented in this encounter Additional Health Concerns Assessment Noted Time PHQ-9 Depression Total Score: 0 08/12/19 2:40 PM EDT A Body Mass Index follow-up plan has been documented for the patient 08/16/2022 6:09 AM EDT documented as of this encounter Care Teams Analysis Engineer Relationship Specialty Start Date End Date Archie Yeboah MD PCP - General Family Medicine 12/28/22 documented as of this encounter
--- OUTSIDE RECORDS SUMMARY | 2024-12-19 14:00 | XMS_ITS | Encounter Summary ---
Author Organization [facility] Address [facility] [id number] [address] [place] [address] Care Team Providers Care Body Builder Apprentice Name Role Phone Archie Yeboah MD Primary Care Provider [phone] Reason for Visit * Reason Onset Date Comments Med Refill 08/19/2020 Encounter Details Date Type Department Care Team (Late st Contact Info) Description 08/19/2020 Refill [facility] [address] [place] [address] [place] [address] Maia Gregory MA Pain (Primary Dx); Fever, unspecified fever cause; Heartburn Social History Tobacco Use Types Packs/Day Years [...] Telephone Encounter - Maia Gregory MA - 08/19/2020 11:04 AM EDT Pended meds needed * Telephone Encounter - Maia Gregory MA - 08/19/2020 11:04 AM EDT These are meds from [facility], that they faxed over -in need of, Basilia asked me to pend them all forher 08/26/20 documented in this encounter Plan of Treatment Not on file documented as of this encounter Visit Diagnoses Diagnosis Pain- Primary Generalized pain Fever, unspecified fever cause Heartburn documented in this encounter Additional Health Concerns Infection Onset Date Last Indicated Resolved Time COVID-19 Positive 10/19/2021 10/19/2021 11/09/2021 11:12 PM EDT Assessment Noted Time PHQ-9 Depression Total Score: 0 06/27/19 9:56 AM EDT A Body Mass Index follow-up plan has been documented for the patient 06/26/2020 7:04 PM EDT documented as of this encounter Care Teams Body Builder Apprentice Relationship Specialty Start Date End Date Archie Yeboah MD PCP - General Family Medicine 12/28/22 documented as of this encounter
--- OUTSIDE RECORDS SUMMARY | 2024-12-19 14:01 | XMS_ITS | Encounter Summary ---
Author Organization [facility] Address [address] [place] [address] Care Team Providers Care Dinkey Engine Mechanic Name Role Phone Chasity De La O STRIP PICKER Unavailable [phone] Archie Yeboah MD Primary Care Provider [phone] Chasity De La O STRIP PICKER Unavailable [phone] Chasity De La O NP Unavailable [phone] Encounter Details Date Type Department Care Team (Late st Contact Info) Description 12/14/2023 Orders Only [facility] [address] [place] [address] Chasity De La O STRIP PICKER [address] [place] [address] Social History Tobacco Use Types Packs/Day Years Used Date Smoking Tobacco: Never Passive Smoke Exposure: Never Smokeless Tobacco: Never Alcohol Use Standard Drinks/Week Comments Never 0 (1 standard drink = 0.6 oz pur e alcohol) diet pop: 1 daily Humiliation, Afraid, Rape, and Kick questionnair e Answer Date Recorded Within the last year, have y ou been afraid of your partner or ex-partner? No 06/07/2023 Within the last year, have y ou been humiliated or emotionally abused in other ways by your partner or ex-partner? No Within the last year, have y ou been kicked, hit, slapped, or otherwise physically hurt by your partner or ex-partner? No 06/07/2023 Within the last year, have y ou been raped or forced to have any kind of sexual activity by your partner or ex-partner? No 06/07/2023 Social Connection and Isolat ion Panel [NHANES] Answer Date Recorded In a typical week, how many times do you talk on the phone with family, friends, or neighbors? More than three times a week 06/07/2023 How often do you get togethe r with friends or relatives? Once a week 06/07/2023 How often do you attend chur or zoroastrian services? Never 06/07/2023 Do you belong to any clubs o r organizations such as mosque groups, unions, fraternal or athletic groups, or school groups? No 06/07/2023 How often do you attend meet ings of the clubs or organizations you belong to? Never 06/07/2023 Are you , , di vorced, , never , or living with a partner? Never 06/07/2023 AUDIT-C Answer Date Recorded Q1: How often do you have a drink containing alcohol? Never 06/07/2023 Q2: How many drinks containi ng alcohol do you have on a typical day when you are drinking? Patient does not drink Q3: How often do you have si x or more drinks on one occasion? Never 06/07/2023 Overall Financial Resource Strain (CARDIA) Answe r Date Recorded How hard is it for you to pa y for the very basics like food, housing, medical care, and heating? Not hard at all 06/07/2023 PHQ-2 Answer Date Recorded Patient Health Questionnaire-2 Score 0 10/18/2023 [facility] - Occupational Stress Questionnaire Answer Date Recorded Do you feel stress - tense, restless, nervous, or anxious, or unable to sleep at night because your mind is troubled all the time - these days? Not at all 06/07/2023 Exercise Vital Sign Answer Date Recorde d On average, how many days pe r week do you engage in moderate to strenuous exercise (like a brisk walk)? 3 days 06/07/2023 On average, how many minutes do you engage in exercise at this level? 20 min 06/07/2023 Hunger Vital Sign Answer Date Recorded Within the past 12 months, y ou worried that your food would run out before you got the money to buy more. Never true 06/07/19 24 Within the past 12 months, t he food you bought just didn't last and you didn't have money to get more. Never true 06/07/2023 PRAPARE - Transportation Answer Date Re corded In the past 12 months, has l ack of transportation kept you from medical appointments or from getting medications? No 05/13 In the past 12 months, has l ack of transportation kept you from meetings, work, or from getting things needed for daily living? No 06/07/2023 Housing Stability Vital Sign Answer Alexis e Recorded In the last 12 months, was t here a time when you were not able to pay the mortgage or rent on time? No 06/07/2023 In the last 12 months, how many places have you lived? 1 06/07/2023 In the last 12 months, was t here a time when you did not have a steady place to sleep or slept in a fpc (including now)? No 06/07/2023 Comments Unknown Sex and Gender Information Value Date Recorded Sex Assigned at Not on file Legal Sex Female 4:10 PM EDT Gender Identity Not on file Sexual Orientation Not on file documented as of this encounter Plan of Treatment Not on file documented as of this encounter Procedures Procedure Name Priority Date/Time Associated Diagnosis Comments BI MAMMOGRAM SCREENING TOMOSYNTHESIS BILATERAL Routine 12/14/2023 4:58 PM EDT BI MAMMOGRAM SCREENING TOMOSYNTHESIS BILATERAL Routine 12/14/2023 4:34 PM EDT documented in this encounter Results * Bilateral screening mammogram with tomosynthesis (12/14/2023 4:58 PM EDT) Anatomical Region Laterality Modality Breast Bilateral Mammography us Chasity GASCA BI PROCEDURES Final Result * Bilateral screening mammogram with tomosynthesis (12/14/2023 4:34 PM EDT) Anatomical Region Laterality Modality Breast Bilateral Mammography us Chasity GASCA BI PROCEDURES Final Result documented in this encounter Visit Diagnoses Not on filedocumented in this encounter Additional Health Concerns Assessment Noted Time PHQ-9 Depression Total Score: 0 06/07/19 24 11:19 AM EST documented as of this encounter Care Teams Dinkey Engine Mechanic Relationship Specialty Start Date End Date Archie Yeboah MD PCP - General Family Medicine 06/07/23 Chasity De La O NP [address] [place] [address] PCP - ACO Reach 05/18/24 Chasity De La O NP Nurse Practitioner Family Medicine 04/11/22 Chasity De La O NP Nurse Practitioner Family Medicine 06/07/23 documented as of this encounter
--- OUTSIDE RECORDS SUMMARY | 2024-12-19 14:01 | XMS_ITS | Encounter Summary ---
Author Organization [facility] Address [facility] [id number] [address] [place] [address] Care Team Providers Care Stove Polisher Name Role Phone Archie Yeboah MD Primary Care Provider [phone] Reason for Visit * Reason Comments Med Refill Encounter Details Date Type Department Care Team (Late st Contact Info) Description 02/14/2023 Refill [facility] [address] [facility] [address] Radha Silver, MUFFLE OPERATOR-LEAD TECHNICIAN [address] [place] [address] GERD without esophagitis Social History Tobacco Use Types Packs/Day Years [...] Diagnoses Diagnosis GERD without esophagitis Esophageal reflux documented in this encounter Additional Health Concerns Assessment Noted Time PHQ-9 Depression Total Score: 0 08/12/19 2:40 PM EDT A Body Mass Index follow-up plan has been documented for the patient 08/16/2022 6:09 AM EDT documented as of this encounter Care Teams Stove Polisher Relationship Specialty Start Date End Date Archie Yeboah MD PCP - General Family Medicine 12/28/22 documented as of this encounter
--- OUTSIDE RECORDS SUMMARY | 2024-12-19 14:01 | XMS_ITS | Encounter Summary ---
Author Organization [email or web address] Address [facility] [id number] [address] [place] [address] Care Team Providers Care Mechanical Operator Name Role Phone Archie Yeboah MD Primary Care Provider [phone] Reason for Visit * Reason Comments Med Refill Encounter Details Date Type Department Care Team (Late st Contact Info) Description 03/24/2021 Refill [facility] [address] [facility] [place] [address] Radha Silver, PATTERN LEASE INSPECTOR-REGISTERED PUBLIC HEALTH NURSE [address] [facility] [place] [address] GERD without esophagitis Social History Tobacco Use Types Packs/Day Years Used Date Smoking Tobacco: Never Smokeless Tobacco: Never Alcohol Use Standard Drinks/Week Comments No 0 (1 standard drink = 0.6 oz pur e alcohol) PHQ-2 Answer Date Recorded Total Score 0 03/11/2021 Childcare Answer Date Recorded Childcare Unknown 09/11/2018 [...] have Coronavirus / COVID-19? No / Unsure 03/18/2021 10:46 AM EST documented as of this encounter Plan of Treatment Not on file documented as of this encounter Visit Diagnoses Diagnosis GERD without esophagitis Esophageal reflux documented in this encounter Additional Health Concerns Infection Onset Date Last Indicated Resolved Time COVID-19 Positive 10/19/2021 10/19/2021 11/09/2021 11:12 PM EDT Assessment Noted Time PHQ-9 Depression Total Score: 0 03/11/20 2:58 PM EST A Body Mass Index follow-up plan has been documented for the patient 03/18/2021 1:45 PM EST documented as of this encounter Care Teams Mechanical Operator Relationship Specialty Start Date End Date Archie Yeboah MD PCP - General Family Medicine 12/28/22 documented as of this encounter
--- OUTSIDE RECORDS SUMMARY | 2024-12-19 14:01 | XMS_ITS | Encounter Summary ---
Author Organization [facility] Address [facility] [place] [id number] [address] [place] [address] Care Team Providers Care Road Manager Name Role Phone Archie Yeboah MD Primary Care Provider [phone] Reason for Visit * Reason Comments Med Refill Encounter Details Date Type Department Care Team (Late st Contact Info) Description 04/21/2021 Refill [facility] [address] [facility] [place] [address] Radha Silver, OWNER ORAL SURGEON-SLAGGER [address] [place] [address] Anxiety and depression Social History Tobacco Use Types Packs/Day Years Used Date Smoking Tobacco: Never Smokeless Tobacco: Never Alcohol Use Standard Drinks/Week Comments No 0 (1 standard drink = 0.6 oz pur e alcohol) PHQ-2 Answer Date Recorded Total Score 0 04/14/2021 Childcare Answer Date Recorded Childcare Unknown 09/11/2018 [...] have Coronavirus / COVID-19? No / Unsure 04/14/2021 1:58 PM EST documented as of this encounter Plan of Treatment Not on file documented as of this encounter Visit Diagnoses Diagnosis Anxiety and depression documented in this encounter Additional Health Concerns Infection Onset Date Last Indicated Resolved Time COVID-19 Positive 10/19/2021 10/19/2021 11/09/2021 11:12 PM EDT Assessment Noted Time PHQ-9 Depression Total Score: 0 04/14/19 2:02 PM EST A Body Mass Index follow-up plan has been documented for the patient 04/15/2021 12:59 PM EST documented as of this encounter Care Teams Road Manager Relationship Specialty Start Date End Date Archie Yeboah MD PCP - General Family Medicine 12/28/22 documented as of this encounter
--- OUTSIDE RECORDS SUMMARY | 2024-12-19 14:01 | XMS_ITS | Encounter Summary ---
Author Organization [facility] Address [facility] [id number] [address] [place] [address] Care Team Providers Care Surgical Coordinator Name Role Phone Archie Yeboah MD Primary Care Provider [phone] Reason for Visit * Reason Onset Date Comments Med Refill 08/18/2022 Encounter Details Date Type Department Care Team (Late st Contact Info) Description 08/18/2022 Refill [facility] - Family Medicine [address] [place] [id number] Yolanda Rios CMA Pain; Fever, unspecified fever cause; Chronic allergic rhinitis due to pollen Social [...] as of this encounter Visit Diagnoses Diagnosis Pain Generalized pain Fever, unspecified fever cause Chronic allergic rhinitis due to pollen documented in this encounter Additional Health Concerns Assessment Noted Time PHQ-9 Depression Total Score: 0 08/12/19 2:40 PM EDT A Body Mass Index follow-up plan has been documented for the patient 08/16/2022 6:09 AM EDT documented as of this encounter Care Teams Surgical Coordinator Relationship Specialty Start Date End Date Archie Yeboah MD PCP - General Family Medicine 12/28/22 documented as of this encounter
--- OUTSIDE RECORDS SUMMARY | 2024-12-19 14:01 | XMS_ITS | Encounter Summary ---
Author Organization [facility] Address [facility] [id number] [address] [place] [address] Care Team Providers Care Comparison Shopper Name Role Phone Archie Yeboah MD Primary Care Provider [phone] Reason for Visit * Reason Comments Med Refill Encounter Details Date Type Department Care Team (Late st Contact Info) Description 05/12/2021 Refill [facility] [address] [facility] [place] [address] Radha Silver, ORTHOTIC/PROSTHETIC PRACTITIONER-INSTRUMENT PROCESSING TECH [address] [place] [address] Arthritis of both knees Social History Tobacco Use Types Packs/Day Years [...] as of this encounter Visit Diagnoses Diagnosis Arthritis of both knees documented in this encounter Additional Health Concerns Infection Onset Date Last Indicated Resolved Time COVID-19 Positive 10/19/2021 10/19/2021 11/09/2021 11:12 PM EDT Assessment Noted Time PHQ-9 Depression Total Score: 0 04/14/19 2:02 PM EST A Body Mass Index follow-up plan has been documented for the patient 04/15/2021 12:59 PM EST documented as of this encounter Care Teams Comparison Shopper Relationship Specialty Start Date End Date Archie Yeboah MD PCP - General Family Medicine 12/28/22 documented as of this encounter
--- OUTSIDE RECORDS SUMMARY | 2024-12-19 14:01 | XMS_ITS | Encounter Summary ---
Author Organization [facility] Address [facility] [id number] [address] [place] [address] Care Team Providers Care Psychiatric Mental Health Nurse Name Role Phone Archie Yeboah MD Primary Care Provider [phone] Reason for Visit * Reason Comments Med Refill Encounter Details Date Type Department Care Team (Late st Contact Info) Description 12/02/2020 Refill [facility] [address] [facility] [place] [address] [address] Radha Silver, DECORATOR MANNEQUIN-BRASS PICKLER [address] [place] [address] Mixed hyperlipidemia Social History Tobacco Use Types Packs/Day Years Used Date Smoking Tobacco: Never Smokeless Tobacco: Never Alcohol Use Standard Drinks/Week Comments No 0 (1 standard drink = 0.6 oz pur e alcohol) PHQ-2 Answer Date Recorded Total Score 0 12/02/2020 Childcare Answer Date Recorded Childcare Unknown 09/11/2018 [...] have Coronavirus / COVID-19? No / Unsure 12/02/2020 1:42 PM EDT documented as of this encounter Plan of Treatment Not on file documented as of this encounter Visit Diagnoses Diagnosis Mixed hyperlipidemia documented in this encounter Additional Health Concerns Infection Onset Date Last Indicated Resolved Time COVID-19 Positive 10/19/2021 10/19/2021 11/09/2021 11:12 PM EDT Assessment Noted Time PHQ-9 Depression Total Score: 0 12/03/19 1:46 PM EDT A Body Mass Index follow-up plan has been documented for the patient 12/02/2020 3:07 PM EDT documented as of this encounter Care Teams Psychiatric Mental Health Nurse Relationship Specialty Start Date End Date Archie Yeboah MD PCP - General Family Medicine 12/28/22 documented as of this encounter
--- OUTSIDE RECORDS SUMMARY | 2024-12-19 14:01 | XMS_ITS | Encounter Summary ---
Author Organization [facility] Address [facility] [id number] [address] [place] [address] Care Team Providers Care Ocularist Name Role Phone Archie Yeboah MD Primary Care Provider [phone] Reason for Visit * Reason Comments Med Refill Encounter Details Date Type Department Care Team (Late st Contact Info) Description 12/15/2020 Refill [facility] [address] [facility] [place] [address] Radha Silver, PENCILLER-DESK TOP PUBLISHER [address] [place] [address] Anxiety and depression Social History Tobacco Use [...] documented as of this encounter Care Teams Ocularist Relationship Specialty Start Date End Date Archie Yeboah MD PCP - General Family Medicine 12/28/22 documented as of this encounter
--- OUTSIDE RECORDS SUMMARY | 2024-12-19 14:01 | XMS_ITS | Encounter Summary ---
Author Organization [facility] Address [address] [place] [address] Care Team Providers Care Pediatric Immunologist Name Role Phone Chasity De La O SENIOR GROUP MANAGER Unavailable [phone] Archie Yeboah MD Primary Care Provider Chasity De La O SENIOR GROUP MANAGER Unavailable [phone] Chasity De La O SENIOR GROUP MANAGER Unavailable [phone] Encounter Details Date Type Department Care Team (Late st Contact Info) Description 06/15/2023 Abstract [facility] [address] [place] [address] Chasity De La O SENIOR GROUP MANAGER [address] [place] [address] Social History Tobacco Use Types Packs/Day Years [...] How often do you attend chur or hindu services? Never 06/07/2023 Do you belong to any clubs o r organizations such as shinto groups, unions, fraternal or athletic groups, or [...] Date Recorded Patient Health Questionnaire-2 Score 0 06/07/2023 [facility] - Occupational Stress [...] money to buy more. Never true 06/07/19 Within the past 12 months, t he [...] place to sleep or slept in a group home (including now)? No 06/07/2023 Comments Unknown Sex and Gender Information Value Date Recorded Sex Assigned at Not on file Legal Sex Female 4:10 PM EDT Gender Identity Not on file Sexual Orientation Not on file documented as of this encounter Plan of Treatment Not on file documented as of this encounter Visit Diagnoses Not on filedocumented in this encounter Additional Health Concerns Assessment Noted Time PHQ-9 Depression Total Score: 0 06/07/19 11:19 AM EST documented as of this encounter Care Teams Pediatric Immunologist Relationship Specialty Start Date End Date Archie Yeboah MD PCP - General Family Medicine 06/07/23 Chasity De La O NP [address] [place] [address] PCP - ACO Reach 05/18/24 Chasity De La O NP Nurse Practitioner Family Medicine 04/11/22 Chasity De La O NP Nurse Practitioner Family Medicine 06/07/23 documented as of this encounter
--- OUTSIDE RECORDS SUMMARY | 2024-12-19 14:01 | XMS_ITS | Encounter Summary ---
Author Organization [facility] Address [facility] [id number] [address] [place] [address] Care Team Providers Care Doctor Of Optometry Name Role Phone Archie Yeboah MD Primary Care Provider [phone] Encounter Details Date Type Department Care Team (Late st Contact Info) Description 11/12/2020 Refill [facility] [address] [facility] [place] [address] Jacy Campbell CMA Constipation, unspecified constipation type; External hemorrhoids Social History Tobacco Use Types Packs/Day Years Used Date Smoking Tobacco: Never Smokeless Tobacco: Never Alcohol Use Standard Drinks/Week Comments No 0 (1 standard drink = 0.6 oz pur e alcohol) PHQ-2 Answer Date Recorded Total Score 3 10/20/2020 Childcare Answer Date Recorded Childcare Unknown 09/11/2018 [...] have Coronavirus / COVID-19? No / Unsure 10/16/2020 1:37 PM EDT documented as of this encounter Plan of Treatment Not on file documented as of this encounter Visit Diagnoses Diagnosis Constipation, unspecified constipation type External hemorrhoids External hemorrhoids without mention of complication documented in this encounter Additional Health Concerns Infection Onset Date Last Indicated Resolved Time COVID-19 Positive 10/19/2021 10/19/2021 11/09/2021 11:12 PM EDT Assessment Noted Time PHQ-9 Depression Total Score: 3 10/21/19 21 12:53 PM EDT A Body Mass Index follow-up plan has been documented for the patient 10/20/2020 1:06 PM EDT documented as of this encounter Care Teams Doctor Of Optometry Relationship Specialty Start Date End Date Archie Yeboah MD PCP - General Family Medicine 12/28/22 documented as of this encounter
--- OUTSIDE RECORDS SUMMARY | 2024-12-19 14:01 | XMS_ITS | Encounter Summary ---
Author Organization [employer] [facility] Address [facility] [id number] [address] [place] [address] Care Team Providers Care Rubber Insulator Name Role Phone Archie Yeboah MD Primary Care Provider [phone] Reason for Visit * Reason Comments Med Refill Encounter Details Date Type Department Care Team (Late st Contact Info) Description 10/02/2021 Refill [facility] [address] [facility] [place] [address] Radha Silver, CLERK ENTRY LEVEL-MOLDED GOODS CONTROLS OPERATOR [address] [place] [address] Constipation, unspecified constipation type; External hemorrhoids Social History Tobacco Use Types Packs/Day Years Used Date Smoking Tobacco: Never Smokeless Tobacco: Never Alcohol Use Standard Drinks/Week Comments No 0 (1 standard drink = 0.6 oz pur e alcohol) PHQ-2 Answer Date Recorded Total Score 0 08/10/2021 Childcare Answer Date Recorded Childcare Unknown 09/11/2018 [...] Noted Time PHQ-9 Depression Total Score: 0 08/11/19 3:22 PM EDT A Body Mass Index follow-up plan has been documented for the patient 08/10/2021 4:37 PM EDT documented as of this encounter Care Teams Rubber Insulator Relationship Specialty Start Date End Date Archie Yeboah MD PCP - General Family Medicine 12/28/22 documented as of this encounter
--- OUTSIDE RECORDS SUMMARY | 2024-12-19 14:01 | XMS_ITS | Encounter Summary ---
Author Organization [facility] Address [facility] [id number] [address] [place] [address] Care Team Providers Care Tactical Intelligence Officer Name Role Phone Archie Yeboah MD Primary Care Provider [phone] Reason for Visit * Reason Comments Med Refill Encounter Details Date Type Department Care Team (Late st Contact Info) Description 09/03/2022 Refill [facility] [address] [facility] [place] [address] Radha Silver, SUPERVISOR MACHINE SETTER-LINOLEUM LAYER HELPER [address] [facility] [place] [address] Constipation, unspecified constipation type; External hemorrhoids Social [...] documented as of this encounter Care Teams Tactical Intelligence Officer Relationship Specialty Start Date End Date Archie Yeboah MD PCP - General Family Medicine 12/28/22 documented as of this encounter
--- OUTSIDE RECORDS SUMMARY | 2024-12-19 14:01 | XMS_ITS | Encounter Summary ---
Author Organization [facility] Address [facility] [place]-[id number] [address] [place] [address] Care Team Providers Care Principal Software Architect Name Role Phone Archie Yeboah MD Primary Care Provider [phone] Reason for Visit * Reason Comments Med Refill Encounter Details Date Type Department Care Team (Late st Contact Info) Description 08/18/2022 Refill [facility] [address] [facility] [place] [address] Radha Silver, POWER TONG OPERATOR-REVENUE FIELD AGENT [address] [facility] [place] [address] Chronic allergic rhinitis due to pollen; Pain; Fever, unspecified fever cause Social History Tobacco Use Types Packs/Day Years [...] Diagnosis Chronic allergic rhinitis due to pollen Pain Generalized pain Fever, unspecified fever cause documented in this encounter Additional Health Concerns Assessment Noted Time PHQ-9 Depression Total Score: 0 08/12/19 2:40 PM EDT A Body Mass Index follow-up plan has been documented for the patient 08/16/2022 6:09 AM EDT documented as of this encounter Care Teams Principal Software Architect Relationship Specialty Start Date End Date Archie Yeboah MD PCP - General Family Medicine 12/28/22 documented as of this encounter
--- OUTSIDE RECORDS SUMMARY | 2024-12-19 14:01 | XMS_ITS | Encounter Summary ---
Author Organization [facility] Address [id number] [address] [place] [address] Care Team Providers Care Packaging Line Attendant Name Role Phone Archie Yeobah MD Primary Care Provider [phone] Reason for Visit * Reason Comments Med Refill Encounter Details Date Type Department Care Team (Late st Contact Info) Description 08/23/2022 Refill [facility] [address] [facility] [place] [address] Radha Silver, SALES REPRESENTATIVE SUPERVISOR-FISCAL ANALYST [address] [place] [address] Anxiety and depression; Acute seasonal allergic rhinitis Social History Tobacco [...] encounter Visit Diagnoses Diagnosis Anxiety and depression Acute seasonal allergic rhinitis documented in this encounter Additional Health Concerns Assessment Noted Time PHQ-9 Depression Total Score: 0 08/12/19 2:40 PM EDT A Body Mass Index follow-up plan has been documented for the patient 08/16/2022 6:09 AM EDT documented as of this encounter Care Teams Packaging Line Attendant Relationship Specialty Start Date End Date Archie Yeboah MD PCP - General Family Medicine 12/28/22 documented as of this encounter
--- OUTSIDE RECORDS SUMMARY | 2024-12-19 14:01 | XMS_ITS | Encounter Summary ---
Author Organization [facility] Address [facility] [id number] [address] [place] [address] Care Team Providers Care Communications Advisor Name Role Phone Archie Yeboah MD Primary Care Provider [phone] Reason for Visit * Reason Comments Med Refill Encounter Details Date Type Department Care Team (Late st Contact Info) Description 03/18/2023 Refill [facility] [address] [facility] [place] [address] Radha Silver, JAVA J2EE LEAD-DIRECT MARKETING ANALYST [address] [place] [address] Mixed hyperlipidemia Social History Tobacco Use Types [...] documented as of this encounter Care Teams Communications Advisor Relationship Specialty Start Date End Date Archie Yeboah MD PCP - General Family Medicine 12/28/22 documented as of this encounter
--- OUTSIDE RECORDS SUMMARY | 2024-12-19 14:01 | XMS_ITS | Encounter Summary ---
Author Organization [facility] Address [facility] [id number] [address] [place] [address] Care Team Providers Care Yard Inspector Name Role Phone Archie Yeboah MD Primary Care Provider [phone] Reason for Visit * Reason Comments Med Refill Encounter Details Date Type Department Care Team (Late st Contact Info) Description 05/08/2021 Refill [facility] [address] [facility] [place] [address] Radha Silver, CAUSTIC PREPARER-HOSPITAL NURSE LIAISON [address] [place] [address] Arthritis of both knees Social History Tobacco [...] documented as of this encounter Care Teams Yard Inspector Relationship Specialty Start Date End Date Archie Yeboah MD PCP - General Family Medicine 12/28/22 documented as of this encounter
--- OUTSIDE RECORDS SUMMARY | 2024-12-19 14:01 | XMS_ITS | Encounter Summary ---
Author Organization [facility] [facility] Address [facility] [id number] [address] [place] [address] Care Team Providers Care Income Tax Administrator Name Role Phone Archie Yeboah MD Primary Care Provider [phone] Reason for Visit * Reason Comments Med Refill Encounter Details Date Type Department Care Team (Late st Contact Info) Description 04/16/2022 Refill [facility] [address] [facility] [place] [address] Radha Silver, HISTORIOGRAPHER-ROCK WOOL APPLICATOR [address] [facility] [place] [address] Vitamin D deficiency Social History Tobacco Use Types Packs/Day Years Used Date Smoking Tobacco: Never Smokeless Tobacco: Never Alcohol Use Standard Drinks/Week Comments No 0 (1 standard drink = 0.6 oz pur e alcohol) PHQ-2 Answer Date Recorded Total Score 0 03/22/2022 Childcare Answer Date Recorded Childcare Unknown 09/11/2018 [...] have Coronavirus / COVID-19? No / Unsure 03/22/2022 3:33 PM EST documented as of this encounter Plan of Treatment Not on file documented as of this encounter Visit Diagnoses Diagnosis Vitamin D deficiency documented in this encounter Additional Health Concerns Assessment Noted Time PHQ-9 Depression Total Score: 0 03/22/20 3:51 PM EST A Body Mass Index follow-up plan has been documented for the patient 03/23/2022 10:56 AM EST documented as of this encounter Care Teams Income Tax Administrator Relationship Specialty Start Date End Date Archie Yeboah MD PCP - General Family Medicine 12/28/22 documented as of this encounter
--- OUTSIDE RECORDS SUMMARY | 2024-12-19 14:01 | XMS_ITS | Clinical Summary ---
Author Organization [facility] Address [address] [place] [address] Care Team Providers Care Drop Wire Stringer Name Role Phone Chasity De La O NP Unavailable [phone] Archie Yeboah MD Primary Care Provider [phone] Chasity De La O NP Unavailable [phone] Chasity De La O NP Unavailable [phone] Allergies No known active allergies Medications omeprazole (PriLOSEC) [address] capsuleIndication s:Gastroesophagea l reflux disease without esophagitis Take 1 capsule (20 mg) by mouth in the evening 90 capsule 07/24/19 25 Active FLUoxetine (PROzac) 10 MG capsuleIndication s:Recurrent major depressive disorder, in remission Take 1 capsule (10 mg) by mouth Daily 90 capsule 08/04/19 25 Active loratadine (Claritin) 10 MG tabletIndications :Chronic allergic rhinitis due to pollen Take 1 tablet (10 mg) by mouth Daily 90 tablet 1 08/04/19 25 Active rosuvastatin (Crestor) 10 MG tabletIndications :Mixed hyperlipidemia GIVE 1 TABLET BY MOUTH EVERY EVENING (8PM) 90 tablet 1 09/04/19 25 Active ibuprofen 600 MG tabletIndications :Pain Take 1 tablet (600 mg) by mouth every 12 (twelve) hours if needed for moderate pain (pain) 30 tablet 5 10/26/19 25 2024 Active fluticasone (Flonase) 50 MCG/ACT nasal sprayIndications: Chronic allergic rhinitis due to pollen Administer 2 sprays into each nostril Daily 48 g 1 10/26/19 25 2024 Active Acetaminophen Extra Strength 500 MG tabletIndications :Pain GIVE 1 TABLET BY MOUTH EVERY 6 HOURS NEEDED FOR HEADACHE, GENERAL BODY PAIN NOT INCLUDING LEG PAIN OR FEVER>100.4 60 tablet 1 11/22/19 Active acetaminophen (Tylenol) 500 MG tabletIndications :Pain GIVE 1 TABLET BY MOUTH EVERY 6 HOURS NEEDED FOR HEADACHE, GENERAL BODY PAIN NOT INCLUDING LEG PAIN OR FEVER>100.4 60 tablet 2 08/02/19 24 2024 Discontinued Active Problems Problem Noted Date Diagnosed Date Tubular adenoma of colon 06/27/2024 Assessment & Plan (06/27/2024 5:15 PM EDT): I did contact dr jolley office while pt was here, she is on the list for sending out letter in 09/02 for her to have fu colonoscopy I did discuss this with pt's brother as well Chronic pain of left knee 06/27/2024 Assessment & Plan (06/27/2024 5:15 PM EDT): Cont NSAID, Check xray Nausea & vomiting 12/26/2023 Assessment & Plan (12/26/2023 10:25 AM EDT): Will send in zofran to pharmacy Ordered urine culture and respiratory panel Heart burn 08/02/2023 Assessment & Plan (06/27/2024 6:59 AM EDT): Recommendations: freq small meals, nothing to eat or drink at least 2 hours prior to bed, limit caffeine, alcohol, as well as spicy foods Meds to limit or avoid if possible: NSAIDS Elevate HOB if possible Current meds: omperazole Assessment & Plan (10/18/2023 3:46 PM EDT): Doing well on current meds Pain 08/02/2023 Assessment & Plan (06/27/2024 5:14 PM EDT): Family concerned about her taking 800mg ibuprofen every night, only takes at night. Concerned it may cause stomach issues I did discuss with pt, she does not want to stop taking this, while initially she denies pain, she then says she takes it for knee pain I will lower dose to 600mg dose and change to every 12 hours as needed for pain Vitamin D deficiency 06/17/2023 Assessment & Plan (06/27/2024 7:00 AM EDT): Take supplement daily Check labs yearly and prn dose changes or changes in sxs Assessment & Plan (10/18/2023 3:46 PM EDT): Check labs Recurrent major depressive disorder, in remissio n 06/17/2023 Assessment & Plan (06/27/2024 5:19 PM EDT): Current med: fluoxetine PHQ 9=0 Assessment & Plan (10/18/2023 3:46 PM EDT): No change in meds Encounter for screening mamm ogram for malignant neoplasm of breast 06/07/2023 Encounter for subsequent [facility] ([facility]V) in Medicare patient 06/07/2023 Assessment & Plan (06/27/2024 7:02 AM EDT): Reviewed Ht/Wt/BMI Recommend eye exam yearly Recommend dental exams twice a year Exercises is recommended most days of the week (appropriate as chronic conditions allow) Follow up yearly and prn Assessment & Plan (06/07/2023 12:47 PM EST): Reviewed Ht/Wt/BMI Recommend eye exam yearly Recommend dental exams twice a year Exercises is recommended most days of the week (appropriate as chronic conditions allow) Follow up yearly and prn Overweight (BMI 25.0-29.9) 06/07/2023 Mixed hyperlipidemia 04/02/2023 Assessment & Plan (06/27/2024 7:01 AM EDT): On statin Check labs yearly and prn dose changes Chronic allergic rhinitis due to pollen 06/04/19 Assessment & Plan (06/27/2024 7:00 AM EDT): Currently takes loratadine Arthritis of both knees 03/26/2019 Asymptomatic menopause 09/14/2018 Elevated glucose level 08/29/2018 Assessment & Plan (10/18/2023 3:46 PM EDT): Check A1c test Constipation 12/20/2017 Abnormal developmental screening 06/20/2017 Resolved Problems Problem Noted Date Diagnosed Date Resolved Date Viral illness 12/26/2023 06/27/2024 Overview (12/26/2023): HepatoChem [id number] EXP: 04/10/2024 Lot # [id number] Assessment & Plan (12/26/2023 10:33 AM EDT): Suspect covid, will order resp panel and urine culture Fluids, rest nausea meds Off work note given for the week If worsening in symptoms can go to ER as well Gastroesophageal reflux dise ase without esophagitis 05/16/2023 05/16/2023 Encounters Date Type Department Care Team Description 11/21/2024 Refill [facility] [address] [place] [address] Chasity De La O, SAHIL Pain 10/25/2024 Refill [facility] [address] [facility] [place] [address] Chasity D eLa O NP Pain; Chronic allergic rhinitis due to pollen from Last 3 Months Immunizations Immunization Administration Dates Next Due Influenza, injectable, quadr ivalent, preservative free 03/09/2023,03/22/2022,01/22/2021,2019,01/16/2019,01/19/2018 Tdap 08/29/2018 Social History Tobacco Use Types Packs/Day Years Used Date Smoking Tobacco: Never Passive Smoke Exposure: Never Smokeless Tobacco: Never Tobacco Cessation:Counseling Given: No Alcohol Use Standard Drinks/Week Comments Never 0 [...] How often do you attend chur or jainism services? Never 06/07/2023 Do you belong to any clubs o r organizations such as caodaism groups, unions, fraternal or athletic groups, or [...] Date Recorded Patient Health Questionnaire-2 Score 0 06/27/2024 [facility] - Occupational [...] place to sleep or slept in a assisted (including now)? No 06/07/2023 Comments Unknown Sex and Gender Information Value Date Recorded Sex Assigned at Not on file Legal Sex Female 4:10 PM EDT Gender Identity Not on file Sexual Orientation Not on file Last Filed Vital Signs Vital Sign Reading Time Taken Comments Blood Pressure 132/80 06/27/2024 11:06 AM EDT Pulse 82 06/27/2024 11:06 AM EDT Temperature 36.9 C (98.5 F) 06/27/2024 11:06 AM EDT Respiratory Rate 18 06/27/2024 11:06 AM EDT Oxygen Saturation 95% 06/27/2024 11:06 AM EDT Inhaled Oxygen Concentration - - Weight 62.4 kg (137 lb 9.6 oz) 06/27/2024 11:06 AM EDT Height 149.9 cm (4' 11 ) 12/26/2023 9:43 AM EDT Body Mass Index 27.79 12/26/2023 9:43 AM EDT Plan of Treatment Health Maintenance Due Date Last Done Comments CT Colonography 1965 FIT-DNA 1965 FIT 1965 FOBT 1965 Sigmoidoscopy 1965 Pap Smear 1986 HPV/Cotest 09/03/1995 Colonoscopy 09/23/2024 09/24/2019, 09/24/2019 Colorectal Cancer Screening 09/23/2024 Influenza Vaccine (#1) 2024 , 03/22/2022, 01/22/2021, Additional history exists Mammogram 12/13/2024 12/14/2023, 07/2023, 12/14/2023, Additional history exists Medicare Annual Wellness (AWV) 06/27/2025 0 06/27/2024, 06/27/2024, 06/07/2023, Additional history exists Cervical Cancer Screening Discontinued Procedures Procedure Name Priority Date/Time Associated Diagnosis Comments MM TOMOSYNTHESIS SCREENING BI 12/14/2023 4:24 PM EDT from Last 3 Months or Most Recently Relevant to Health Maintenance Results * MM TOMOSYNTHESIS SCREENING BI (12/14/2023 4:24 PM EDT) Anatomical Region Laterality Modality Other 12/14/2023 4:24 PM EDT Narrative 12/14/2023 4:25 [place] [address] Mammography Report Signed Patient: LUISA FERRARO MR#: [id number] : 1965 Acct:[id number] Age/Sex: 58 / F ADM Date: 12/13/23 Loc: MAMMO Attending Dr: Chasity De La O NP Ordering Physician: Chasity De La O NP Results: Date of Service: 12/13/23 Follow Up: Procedure(s): MM tomosynthesis screening BI Accession Number(s): [id number] cc: Chasity De La O NP Patient Name: LUISA FERRARO MR#: [id number] : 1965 Exam Date: 12/13/2023 Ordering Doctor: BRIAN De La O CNP RADIOLOGY REPORT PROCEDURE: MM TOMOSYNTHESIS SCREENING BI COMPARISON: MM TOMOSYNTHESIS SCREENING BI, 12/08/2022. MG MAMM SCREEN 3D KATHY CAD, 12/01/2021. MG MAMM SCREEN 3D KATHY CAD, 10/30/2020. MG MAMM KATHY SCRN W CAD DIG, 06/06/2013. INDICATIONS: Screening Calculator Name NCI Breast Cancer Risk Assessment Tool 5 Year Breast Cancer Risk 1.30% Lifetime Breast Cancer Risk 8.00% Personal Breast Cancer No Personal Ovarian Cancer No Treatments None Family Cancers Brother with unknown cancer at age 49; Brother with unknown cancer at age 57; Father with lung cancer at age 75. LOCATION: [facility] BREAST COMPOSITION: There are scattered areas of fibroglandular density. FINDINGS: DIAGNOSTIC CATEGORY 2--BENIGN FINDING: RIGHT BREAST: No significant suspicious finding. Stable, chronic lower-outer quadrant benign-appearing lymph node. No significant change has occurred. LEFT BREAST: No significant suspicious finding. No significant change has occurred. RECOMMENDATIONS: ROUTINE MAMMOGRAM AND CLINICAL EVALUATION IN 12 MONTHS. PLEASE NOTE: A NORMAL MAMMOGRAM DOES NOT EXCLUDE THE POSSIBILITY OF BREAST CANCER. A CLINICALLY SUSPICIOUS PALPABLE LUMP SHOULD BE BIOPSIED. Dictated by: Hussain Angela M.D. on 12/14/2023 at 16:21 Approved by: Hussain Angela M.D. on 12/14/2023 at 16:24 Dictated By: Hussain Angela M.D. Signed By: 12/14/23 1625 DD/ 1624 TD/TT: Waitress: Procedure Note Radiology, Radiologist, MD - 12/14/2023 [place] [address] Mammography Report Signed Patient: LUISA FERRARO JMR#: [id number] : 1965Acct:[id number] Age/Sex: 58 / FADM Date: 12/13/23 Loc: MAMMO Attending Dr: Chasity De La O NP Ordering Physician: Chasity De La O NPResults: Date of Service: 12/13/23Follow Up: Procedure(s): MM tomosynthesis screening BI Accession Number(s): [id number] cc: Chasity De La O NP Patient Name: LUISA FERRARO MR#: [id number] : 1965 Exam Date: 12/13/2023 Ordering Doctor: BRIAN De La O EQUITY STRUCTURER RADIOLOGY REPORT PROCEDURE: MM TOMOSYNTHESIS SCREENING BI COMPARISON: MM TOMOSYNTHESIS SCREENING BI, 12/08/2022. MG MAMM [id number] KATHY CAD, 12/01/2021. MG MAMM SCREEN 3D KATHY CAD, 10/30/2020. MG MAMM BILSCRN W CAD DIG, 06/06/2013. INDICATIONS: Screening Calculator Name NCI Breast Cancer Risk Assessment Tool 5 Year Breast Cancer Risk 1.30% Lifetime Breast Cancer Risk 8.00% Personal Breast Cancer No Personal Ovarian Cancer No Treatments None Family Cancers Brother with unknown cancer at age 49; Brother withunknown cancer at age 57; Father with lung cancer at age 75. LOCATION: The [facility] BREAST COMPOSITION: There are scattered areas of fibroglandulardensity. FINDINGS: DIAGNOSTIC CATEGORY 2--BENIGN FINDING: RIGHT BREAST: No significant suspicious finding. Stable, chroniclower-outer quadrant benign-appearing lymph node. No significant change has occurred. LEFT BREAST: No significant suspicious finding. No significant changehas occurred. RECOMMENDATIONS: ROUTINE MAMMOGRAM AND CLINICAL EVALUATION IN 12 MONTHS. PLEASE NOTE: A NORMAL MAMMOGRAM DOES NOT EXCLUDE THE POSSIBILITY OFBREAST CANCER. A CLINICALLY SUSPICIOUS PALPABLE LUMP SHOULD BE BIOPSIED. Dictated by: Hussain Angela M.D. on 12/14/2023 at 16:21 Approved by: Hussain Angela M.D. on 12/14/2023 at 16:24 Dictated By: Hussain Angela M.D. Signed By:12/14/23 1625 DD/ 1624 TD/TT: Waitress: Chasity De La O NP [facility] Final Result from Last 3 Months or Most Recently Relevant to Health Maintenance Insurance MEDICARE [place]ICAID [place] Care Teams Drop Wire Stringer Relationship Specialty Start Date End Date Archie Yeboah MD PCP - General Family Medicine 06/07/23 Chasity De La O NP [address] [place] [address] PCP - ACO Reach 05/18/24 Chasity De La O NP Nurse Practitioner Family Medicine 04/11/22 Chasity De La O NP Nurse Practitioner Family Medicine 06/07/23
--- OUTSIDE RECORDS SUMMARY | 2024-12-19 14:01 | XMS_ITS | Encounter Summary ---
Author Organization [employer] [facility] [employer] Address [facility] [id number] [address] [place] [address] Care Team Providers Care Case Specialist Name Role Phone Archie Yeboah MD Primary Care Provider [phone] Encounter Details Date Type Department Care Team (Late st Contact Info) Description 10/16/2020 Telephone [facility] [address] [facility] [place] [address] [place] [address] Maia Gregory MA Social History Tobacco Use Types Packs/Day Years [...] Telephone Encounter - Maia Gregory MA - 10/16/2020 2:59 PM EDT She forgot to ask since sugars are doing good, Luisa wanted to know if she can stop checking or if it can at least be cut down on how often it is checked. Told will check with Basilia and call them back * Telephone Encounter - Maia Gregory MA - 10/16/2020 2:59 PM EDT FAXED ORDER TO HOUSE AND CALLED TO INFORM * Telephone Encounter - ANIVAL Wasserman - 10/16/2020 2:59 PM EDT Blood sugars per written script. Thank you for faxing. documented in this encounter Plan of Treatment Not on file documented as of this encounter Visit Diagnoses Not on filedocumented in this encounter Additional Health Concerns Infection Onset Date Last Indicated Resolved Time COVID-19 Positive 10/19/2021 10/19/2021 11/09/2021 11:12 PM EDT Assessment Noted Time PHQ-9 Depression Total Score: 0 10/17/19 21 1:45 PM EDT A Body Mass Index follow-up plan has been documented for the patient 10/20/2020 1:06 PM EDT documented as of this encounter Care Teams Case Specialist Relationship Specialty Start Date End Date Archie Yeboah MD PCP - General Family Medicine 12/28/22 documented as of this encounter
--- OUTSIDE RECORDS SUMMARY | 2024-12-19 14:01 | XMS_ITS | Encounter Summary ---
Author Organization [employer] [facility] [employer] Address [id number] [address] [place] [address] Care Team Providers Care Material Yard Clerk Name Role Phone Archie Yeboah MD Primary Care Provider [phone] Reason for Visit * Reason Comments Med Refill Encounter Details Date Type Department Care Team (Late st Contact Info) Description 06/07/2023 Refill [facility] [address] [facility] [place] [place] [address] Radha Silver, GRADUATE RECRUITER-BIZTALK DEVELOPER [address] [facility] [place] [address] Acute seasonal allergic rhinitis Social History Tobacco [...] as of this encounter Care Teams Material Yard Clerk Relationship Specialty Start Date End Date Archie Yeboah MD PCP - General Family Medicine 12/28/22 documented as of this encounter
--- OUTSIDE RECORDS SUMMARY | 2024-12-19 14:01 | XMS_ITS | Encounter Summary ---
Author Organization [facility] Address [id number] [address] [place] [address] Care Team Providers Care Post Exchange Manager Name Role Phone Archie Yeboah MD Primary Care Provider [phone] Reason for Visit * Reason Comments Med Refill Encounter Details Date Type Department Care Team (Late st Contact Info) Description 07/08/2018 Refill [facility] [address] [facility] [place] [address] Radha Silver, MANAGER ENGLISH-LOAN AUDITOR [address] [facility] [place] [address] Acute seasonal allergic rhinitis Social History Tobacco Use Types Packs/Day Years Used Date Smoking Tobacco: Never Smokeless Tobacco: Never Alcohol Use Standard Drinks/Week Comments No 0 (1 standard drink = 0.6 oz pur e alcohol) PHQ-2 Answer Date Recorded PHQ-2 Score 0 04/08/2018 Childcare Answer Date Recorded Childcare Unknown 07/03/2018 Employment Answer Date Recorded Employment Unknown 07/03/2018 Comments No Sex and Gender Information Value [...] Noted Time PHQ-9 Depression Total Score: 0 05/22/19 10:00 AM EST documented as of this encounter Care Teams Post Exchange Manager Relationship Specialty Start Date End Date Archie Yeboah MD PCP - General Family Medicine 12/28/22 documented as of this encounter
--- OUTSIDE RECORDS SUMMARY | 2024-12-19 14:01 | XMS_ITS | Encounter Summary ---
Author Organization [employer] [facility] [employer] Address [id number] [address] [place] [address] Care Team Providers Care Head Resident Name Role Phone Archie Yeboah MD Primary Care Provider [phone] Reason for Visit * Reason Comments Med Refill Encounter Details Date Type Department Care Team (Late st Contact Info) Description 06/19/2019 Refill [facility] [address] [place] [address] Radha Silver, STEEL RULE DIE MAKER APPRENTICE-RADIO STATION AUDIO ENGINEER [address] [facility] [place] [address] GERD without esophagitis Social History Tobacco Use Types Packs/Day Years Used Date Smoking Tobacco: Never Smokeless Tobacco: Never Alcohol Use Standard Drinks/Week Comments No 0 (1 standard drink = 0.6 oz pur e alcohol) PHQ-2 Answer Date Recorded PHQ-2 Score 0 04/08/2018 Childcare Answer Date Recorded Childcare Unknown 09/11/2018 Employment Answer Date Recorded Employment Unknown 09/11/2018 Comments No Sex and Gender Information Value [...] Noted Time PHQ-9 Depression Total Score: 0 06/14/19 10:54 AM EST A Body Mass Index follow-up plan has been documented for the patient 06/18/2019 6:39 AM EDT documented as of this encounter Care Teams Head Resident Relationship Specialty Start Date End Date Archie Yeboah MD PCP - General Family Medicine 12/28/22 documented as of this encounter
--- OUTSIDE RECORDS SUMMARY | 2024-12-19 14:01 | XMS_ITS | Encounter Summary ---
Author Organization [facility] Address [facility] [id number] [address] [place] [address] Care Team Providers Care Train Reservation Clerk Name Role Phone Archie Yeboah MD Primary Care Provider [phone] Reason for Visit * Reason Comments Med Refill Encounter Details Date Type Department Care Team (Late st Contact Info) Description 01/21/2023 Refill [facility] [address] [facility] [place] [address] Radha Silver, INSURANCE PROCESSOR-PROFESSOR OF ART [address] [place] [address] GERD without esophagitis Social History Tobacco Use [...] documented as of this encounter Care Teams Train Reservation Clerk Relationship Specialty Start Date End Date Archie Yeboah MD PCP - General Family Medicine 12/28/22 documented as of this encounter
--- OUTSIDE RECORDS SUMMARY | 2024-12-19 14:01 | XMS_ITS | Encounter Summary ---
Author Organization [employer] [facility] [employer] Address [id number] [address] [place] [address] Care Team Providers Care Research Administrator Name Role Phone Archie Yeboah MD Primary Care Provider [phone] Reason for Visit * Reason Comments Med Refill Encounter Details Date Type Department Care Team (Late st Contact Info) Description 06/18/2019 Refill [facility] [address] [facility] [place] [address] Radha Silver, FORGE SHOP SUPERVISOR-ELECTRICIAN SUBSTATION SUPERVISOR [address] [facility] [place] [address] GERD without esophagitis Social History Tobacco Use [...] documented as of this encounter Care Teams Research Administrator Relationship Specialty Start Date End Date Archie Yeboah MD PCP - General Family Medicine 12/28/22 documented as of this encounter
--- OUTSIDE RECORDS SUMMARY | 2024-12-19 14:01 | XMS_ITS | Encounter Summary ---
Author Organization [facility] Address [facility] [id number] [address] [place] [address] Care Team Providers Care Quality Control Chemist Name Role Phone Archie Yeboah MD Primary Care Provider [phone] Encounter Details Date Type Department Care Team (Late st Contact Info) Description 11/03/2020 Orders Only [facility] [address] [facility] [place] [address] Maia Gregory MA Encounter for screening mammogram for malignant neoplasm of breast Social History Tobacco Use Types Packs/Day Years [...] Comments MAMM SCREENING BILATERAL W CAD Routine 11/03/2020 10:57 AM EDT Encounter for screening mammogram for malignant neoplasm of breast documented in this encounter Results * Mammography screening bilateral with CAD (11/03/2020 10:57 AM EDT) Anatomical Region Laterality Modality Breast Bilateral Mammography us Radha Silver JUDO TEACHER-RESPIRATORY ASSISTANT IMG MAMMOGRAPHY ORDE [place] Final Result documented in this encounter Visit Diagnoses Diagnosis Encounter for screening mammogram for malignant neoplasm of breast documented in this encounter Additional Health Concerns Infection Onset Date Last Indicated Resolved Time COVID-19 Positive 10/19/2021 10/19/2021 11/09/2021 11:12 PM EDT Assessment Noted Time PHQ-9 Depression Total Score: 3 10/21/19 21 12:53 PM EDT A Body Mass Index follow-up plan has been documented for the patient 10/20/2020 1:06 PM EDT documented as of this encounter Care Teams Quality Control Chemist Relationship Specialty Start Date End Date Archie Yeboah MD PCP - General Family Medicine 12/28/22 documented as of this encounter
--- OUTSIDE RECORDS SUMMARY | 2024-12-19 14:01 | XMS_ITS | Encounter Summary ---
Author Organization [employer] Address [facility] [id number] [address] [place] [address] Care Team Providers Care Manager Of Sustainability Name Role Phone Archie Yeboah MD Primary Care Provider [phone] Reason for Visit * Reason Onset Date Comments Med Refill Med Refill 11/12/2020 Encounter Details Date Type Department Care Team (Late st Contact Info) Description 11/04/2020 Refill [facility] [address] [place] [address] Radha Silver, PARTITION ASSEMBLER-MANAGER LEAN [address] [facility] [place] [address] Pain; Fever, unspecified fever cause Social History [...] documented as of this encounter Care Teams Manager Of Sustainability Relationship Specialty Start Date End Date Archie Yeboah MD PCP - General Family Medicine 12/28/22 documented as of this encounter
--- OUTSIDE RECORDS SUMMARY | 2024-12-19 14:01 | XMS_ITS | Encounter Summary ---
Author Organization [facility] Address [facility] [id number] [address] [place] [address] Care Team Providers Care Aquarist Name Role Phone Archie Yeboah MD Primary Care Provider [phone] Reason for Visit * Reason Comments Med Refill Encounter Details Date Type Department Care Team (Late st Contact Info) Description 12/11/2020 Refill [facility] [address] [facility] [place] [address] Radha Silver, IT TRAINER-CLIENT RETENTION SPECIALIST [address] [place] [address] Anxiety and depression Social History Tobacco Use [...] documented as of this encounter Care Teams Aquarist Relationship Specialty Start Date End Date Archie Yeboah MD PCP - General Family Medicine 12/28/22 documented as of this encounter
--- OUTSIDE RECORDS SUMMARY | 2024-12-19 14:01 | XMS_ITS | Encounter Summary ---
Author Organization [facility] Address [address] [place] [address] Care Team Providers Care Song Writer Name Role Phone Chasity De La O CUSTOM STUDIO COORDINATOR Unavailable [phone] Archie Yeboah MD Primary Care Provider Chasity De La O NP Unavailable [phone] Chasity De La O NP Unavailable [phone] Encounter Details Date Type Department Care Team (Late st Contact Info) Description 12/14/2023 Clinisync Result Encounter [facility] External Department Unsolicited Chasity De La O NP [address] [place] [id number] Social History Tobacco Use Types Packs/Day Years [...] How often do you attend chur or rastafari services? Never 06/07/2023 Do you belong to any clubs o r organizations such as protestant groups, unions, fraternal or athletic groups, or [...] Recorded Patient Health Questionnaire-2 Score 0 10/18/2023 [facility] - Occupational Stress Questionnaire Answer Date [...] place to sleep or slept in a skilled nursing (including now)? No 06/07/2023 Comments Unknown Sex [...] TOMOSYNTHESIS SCREENING BI 12/14/2023 4:24 PM EDT documented in this encounter Results * MM TOMOSYNTHESIS SCREENING BI (12/14/2023 4:24 PM EDT) Anatomical Region Laterality Modality Other 12/14/2023 4:24 PM EDT Narrative 12/14/2023 4:25 [place] [address] Mammography Report Signed Patient: ANDREA FERRARO MR#: [id number] : 1965 Acct:[id number] Age/Sex: 58 / F ADM Date: 12/13/23 Loc: MAMMO Attending Dr: Chasity De La O NP Ordering Physician: Chasity De La O NP Results: Date of Service: 12/13/23 Follow Up: Procedure(s): MM tomosynthesis screening BI Accession Number(s): [id number] cc: Chasity De La O NP Patient Name: ANDREA FERRARO MR#: [id number] : 1965 Exam Date: 12/13/2023 Ordering Doctor: [...] lung cancer at age 75. LOCATION: [facility] BREAST COMPOSITION: There are scattered areas of [...] Angela M.D. Signed By: 12/14/23 1625 DD/ 23 TD/TT: Rejected Items Clerk: Procedure Note Radiology, Radiologist, - 12/14/2023 [place] [address] Mammography Report Signed Patient: ANDREA FERRARO JMR#: [id number] : 1965Acct:[id number] Age/Sex: 58 / FADM Date: 12/13/23 Loc: MAMMO Attending Dr: Chasity De La O CUSTOM STUDIO COORDINATOR Ordering Physician: Chasity De La O NPResults: Date of Service: 12/13/23Follow Up: Procedure(s): MM tomosynthesis screening BI Accession Number(s): [id number] cc: Chasity De La O CUSTOM STUDIO COORDINATOR Patient Name: ANDREA FERRARO MR#: [id number] : 1965 Exam Date: 12/13/2023 Ordering Doctor: BRIAN De La O BOILER COVERER HELPER RADIOLOGY REPORT PROCEDURE: MM TOMOSYNTHESIS SCREENING BI COMPARISON: MM TOMOSYNTHESIS SCREENING BI, 12/08/2022. MG MAMM [id number] KATHY CAD, 12/01/2021. MG MAMM SCREEN 3D [...] lung cancer at age 75. LOCATION: [facility] BREAST COMPOSITION: There are scattered areas of [...] M.D. Signed By:12/14/23 1625 DD/ 1624 TD/TT: Rejected Items Clerk: Chasity De La O NP [facility] Final Result documented in this encounter Visit Diagnoses Not on filedocumented in this encounter Additional Health Concerns Assessment Noted Time PHQ-9 Depression Total Score: 0 06/07/19 24 11:19 AM EST documented as of this encounter Care Teams Song Writer Relationship Specialty Start Date End Date Archie Yeboah MD PCP - General Family Medicine 06/07/23 Chasity De La O NP [address] [place] [address] PCP - ACO Reach 05/18/24 Chasity De La O NP Nurse Practitioner Family Medicine 04/11/22 Chasity De La O NP Nurse Practitioner Family Medicine 06/07/23 documented as of this encounter
--- OUTSIDE RECORDS SUMMARY | 2024-12-19 14:01 | XMS_ITS | Encounter Summary ---
Author Organization [facility] Address [facility] [id number] [address] [place] [address] Care Team Providers Care Family Consumer Science Teacher Name Role Phone Archie Yeboah MD Primary Care Provider [phone] Reason for Visit * Reason Comments Med Refill Encounter Details Date Type Department Care Team (Late st Contact Info) Description 06/02/2019 Refill [facility] [address] [facility] [place] [address] [place] [address] Radha Silver, CUSTOM SHOEMAKER-INTAKE ASSESSOR [address] [place] [place] [address] Acute seasonal allergic rhinitis Social History Tobacco [...] Noted Time PHQ-9 Depression Total Score: 0 03/19/20 11:40 AM EST A Body Mass Index follow-up plan has been documented for the patient 03/26/2019 6:50 AM EST documented as of this encounter Care Teams Family Consumer Science Teacher Relationship Specialty Start Date End Date Archie Yeboah MD PCP - General Family Medicine 12/28/22 documented as of this encounter
--- OUTSIDE RECORDS SUMMARY | 2024-12-19 14:01 | XMS_ITS | Encounter Summary ---
Author Organization [facility] Address [facility] [id number] [address] [place] [address] Care Team Providers Care Industrial Relations Analyst Name Role Phone Archie Yeboah MD Primary Care Provider [phone] Encounter Details Date Type Department Care Team (Late st Contact Info) Description 12/01/2021 Orders Only [facility] [address] [facility] [address] Maia Gregory MA Encounter for screening mammogram for malignant neoplasm of breast Social History Tobacco Use Types Packs/Day Years Used Date Smoking Tobacco: Never Smokeless Tobacco: Never Alcohol Use Standard Drinks/Week Comments No 0 (1 standard drink = 0.6 oz pur e alcohol) PHQ-2 Answer Date Recorded Total Score 0 10/19/2021 Childcare Answer Date Recorded Childcare Unknown 09/11/2018 [...] have Coronavirus / COVID-19? No / Unsure 11/21/2021 9:41 AM EDT documented as of this encounter [...] Modality Breast Bilateral Mammography us Radha Silver GARDENER-FINGER WAVER IMG MAMMOGRAPHY ORDE SHERYL Final Result documented in this encounter Visit Diagnoses Diagnosis Encounter for screening mammogram for malignant neoplasm of breast documented in this encounter Additional Health Concerns Assessment Noted Time PHQ-9 Depression Total Score: 0 10/20/19 4:05 PM EDT A Body Mass Index follow-up plan has been documented for the patient 10/19/2021 4:45 PM EDT documented as of this encounter Care Teams Industrial Relations Analyst Relationship Specialty Start Date End Date Archie Yeboah MD PCP - General Family Medicine 12/28/22 documented as of this encounter
--- OUTSIDE RECORDS SUMMARY | 2024-12-19 14:01 | XMS_ITS | Encounter Summary ---
Author Organization [facility] Address [facility] [id number] [address] [place] [address] Care Team Providers Care Supervisor Customer Complaint Service Name Role Phone Archie Yeboah MD Primary Care Provider [phone] Reason for Visit * Reason Comments Med Refill Encounter Details Date Type Department Care Team (Late st Contact Info) Description 05/13/2023 Refill [facility] [address] [facility] [place] [address] Radha Silver, TECHNICIAN ANATOMIC PATHOLOGY-MANAGER WOUND [address] [place] [address] Anxiety and depression; Acute seasonal allergic rhinitis; Vitamin D deficiency Social History Tobacco Use [...] Anxiety and depression Acute seasonal allergic rhinitis Vitamin D deficiency documented in this encounter Additional Health Concerns Assessment Noted Time PHQ-9 Depression Total Score: 0 08/12/19 2:40 PM EDT A Body Mass Index follow-up plan has been documented for the patient 08/16/2022 6:09 AM EDT documented as of this encounter Care Teams Supervisor Customer Complaint Service Relationship Specialty Start Date End Date Archie Yeboah MD PCP - General Family Medicine 12/28/22 documented as of this encounter
--- OUTSIDE RECORDS SUMMARY | 2024-12-19 14:01 | XMS_ITS | Encounter Summary ---
Author Organization [email or web address] Address [facility] [id number] [address] [place] [address] Care Team Providers Care Forging Press Setter Up Name Role Phone Archie Yeboah MD Primary Care Provider [phone] Reason for Visit * Reason Comments Med Refill Encounter Details Date Type Department Care Team (Late st Contact Info) Description 06/08/2018 Refill [facility] [address] [facility] [place] [address] [address] Radha Silver, SOCIETY EDITOR-INSURANCE PREMIUM AUDITOR [address] [place] [address] Mixed hyperlipidemia Social History Tobacco Use Types Packs/Day Years Used Date Smoking Tobacco: Never Smokeless Tobacco: Never Alcohol Use Standard Drinks/Week Comments No 0 (1 standard drink = 0.6 oz pur e alcohol) PHQ-2 Answer Date Recorded PHQ-2 Score 0 04/08/2018 Comments No Sex and Gender Information Value [...] Time PHQ-9 Depression Total Score: 0 05/22/19 19 10:00 AM EST documented as of this encounter Care Teams Forging Press Setter Up Relationship Specialty Start Date End Date Archie Yeboah MD PCP - General Family Medicine 12/28/22 documented as of this encounter
--- OUTSIDE RECORDS SUMMARY | 2024-12-19 14:01 | XMS_ITS | Encounter Summary ---
Author Organization [facility] Address [facility] [id number] [address] [place] [address] Care Team Providers Care Igniter Capper Name Role Phone Archie Yeboah MD Primary Care Provider [phone] Encounter Details Date Type Department Care Team (Late st Contact Info) Description 06/23/2020 Orders Only [facility] [address] [facility] [place] [address] Maia Gregory MA Asymptomatic menopause; Mixed hyperlipidemia; Family history of diabetes mellitus; Elevated glucose level Social History Tobacco Use Types Packs/Day Years [...] Procedure Name Priority Date/Time Associated Diagnosis Comments CBC WITH AUTO DIFFERENTIAL Routine 06/20/2020 Asymptomatic menopause Mixed hyperlipidemia TSH Routine 06/20/2020 Asymptomatic menopause Mixed hyperlipidemia Elevated glucose level HEMOGLOBIN A1C Routine 06/20/2020 Asymptomatic menopause Mixed hyperlipidemia Family history of diabetes mellitus Elevated glucose level LIPID PROFILE Routine 06/20/2020 Asymptomatic menopause Mixed hyperlipidemia Elevated glucose level COMPREHENSIVE METABOLIC PANEL Routine 06/20/2020 Mixed hyperlipidemia Asymptomatic menopause Family history of diabetes mellitus Elevated glucose level documented in this encounter Results * TSH (06/20/2020) External Tsh 1.419 SUNQUEST 06/20/2020 Radha Silver [facility] B[facility] ORDER[facility] Final Result Performing Organization Address [facility] Co de Phone Number SUNQUEST * Hemoglobin A1c (06/20/2020) External Hemoglobin A1C 6.1 % SUNQUEST 06/20/2020 Radha Silver ELECTRONICS TECHNICIAN-HOME BASED ASSISTANT LAB BLOOD ORDERABLES Final Result Performing Organization Address [facility]/ZIP Co de Phone Number SUNQUEST * Lipid profile (06/20/2020) External Cholesterol 141 SUNQUEST External Hdl Cholesterol 34 SUNQUEST External Ldl (Calc) 70.8 SUNQUEST External Triglycerides 191 SUNQUEST External Very Low Lipoprotein 36.2 SUNQUEST 06/20/2020 Radha Silver ELECTRONICS TECHNICIAN-HOME BASED ASSISTANT LAB BLOOD ORDERABLES Final Result Performing Organization Address [facility] Co de Phone Number SUNQUEST * Comprehensive metabolic panel (06/20/2020) External Albumin 3.7 SUNQUEST External Alt Sgpt 58 SUNQUEST External Anion Gap 11.2 SUNQUEST External Ast 30 SUNQUEST External Blood Urea Nitrogen Bun 19.0 SUNQUEST External Calcium Ca 9.0 SUNQUEST External Chloride 102 SUNQUEST External Co2 / Carbon Dioxide 28.6 SUNQUEST External Creatinine 0.80 SUNQUEST External Gfr Amer >60 SUNQUEST External Gfr Non Amer >60 SUNQUEST External Glucose Fasting Or Random (Fbs) 115 SUNQUEST External Potassium K 4.8 SUNQUEST External Sodium Na 137 SUNQUEST Total Bilirubin 0.3 SUNQUEST External Total Protein 7.7 SUNQUEST 06/20/2020 Radha Silver [facility] BLOOD ORDERABLES Final Result Performing Organization Address [facility] de Phone Number SUNQUEST * CBC auto differential (06/20/2020) External Wbc Count 7.1 SUNQUEST External Rbc Count 4.58 SUNQUEST External Hemoglobin 14.2 SUNQUEST External Hematocrit Hct 42.7 SUNQUEST External Mcv 93.2 SUNQUEST External MCH 31.0 SUNQUEST External Mchc 33.3 SUNQUEST External Rdw 12.9 SUNQUEST External Platelet Count 258 SUNQUEST External Mpv 12.0 SUNQUEST 06/20/2020 Radha Silver [facility] LAB BLOOD ORDERABLES Final Result Performing Organization Address [facility] de Phone Number SUNQUEST documented in this encounter Visit Diagnoses Diagnosis Asymptomatic menopause Mixed hyperlipidemia Family history of diabetes mellitus Elevated glucose level documented in this encounter Additional Health Concerns Infection Onset Date Last Indicated Resolved Time COVID-19 Positive 10/19/2021 10/19/2021 11/09/2021 11:12 PM EDT Assessment Noted Time PHQ-9 Depression Total Score: 0 03/20/20 20 9:39 AM EST A Body Mass Index follow-up plan has been documented for the patient 03/25/2020 7:32 AM EST documented as of this encounter Care Teams Igniter Capper Relationship Specialty Start Date End Date Archie Yeboah MD PCP - General Family Medicine 12/28/22 documented as of this encounter
--- NOTE | 2024-12-19 14:02 | MM_ITS ---
Patient Name: ANDREA TORIBIO MR#: [id number] : 1965 Exam Date: 12/19/2024 Ordering Doctor: BRIAN CRAIG CNP RADIOLOGY REPORT PROCEDURE: MM TOMOSYNTHESIS SCREENING BI COMPARISON: MM TOMOSYNTHESIS SCREENING BI, 12/13/2023. MM TOMOSYNTHESIS SCREENING BI, 12/08/2022. MG MAMM SCREEN 3D KATHY CAD, 12/01/2021. MG MAMM KATHY SCRN W CAD DIG, 06/06/2013. INDICATIONS: Screening Calculator Name NCI Breast Cancer Risk Assessment Tool 5 Year Breast Cancer Risk 1.40% Lifetime Breast Cancer Risk 7.80% Personal Breast Cancer No Personal Ovarian Cancer No Treatments None Family Cancers Brother with unknown cancer at age 49; Brother with unknown cancer at age 57; Father with lung cancer at age 75. LOCATION: [facility] BREAST COMPOSITION: There are scattered areas of fibroglandular density. FINDINGS: RIGHT BREAST: No significant suspicious finding. Biopsy marking clips. Left breast: No significant findings. RECOMMENDATIONS: ROUTINE MAMMOGRAM AND CLINICAL EVALUATION IN 12 MONTHS. Dictated by: Jasvir Gutierrez DO on 12/19/2024 at 15:57 Approved by: Jasvir Gutierrez DO on 12/19/2024 at 16:11
--- OUTSIDE RECORDS SUMMARY | 2024-12-19 14:30 | XMS_ITS | CCD ---
Author Organization [facility] Care Team Providers Care Gravel Wheeler Name Role Phone ANA MEZA Primary Care Unavailable ANA MEZA Attending Unavailable DR ISAAC ARRIAZA V Consulting Unavailable ANA MEZA Admitting Unavailable ANA MEZA Consulting Unavailable Jaylyn DIRECTOR TRANSPORTATION, Chasity Unavailable Archie Yeboah MD Primary Care Provider Jaylyn DIRECTOR TRANSPORTATION, Chasity Unavailable CHASITY DE LA O Attending Unavailable CHASITY DE LA O Attending Unavailable CHASITY DE LA O Attending Unavailable Jaylyn DIRECTOR TRANSPORTATION, Chasity Unavailable Medications Current Medications Medication Drug Class(es) Dates Sig (Normalized) Sig (Original) acetaminophen 500 mg oral tablet (20 sources) Start: 08-02-2023 End: 11-21-2024 take 1 tablet by mouth every six hours as needed for pain Acetaminophen Extra Strength 500 MG tablet Indications: Pain GIVE 1 TABLET BY MOUTH EVERY 6 HOURS NEEDED FOR HEADACHE, GENERAL BODY PAIN NOT INCLUDING LEG PAIN OR FEVER>100.4 60 tablet 1 11/21/2024 Active cholecalciferol 0.125 mg oral capsule (17 sources) Vitamin D Start: 05-15-2024 End: 11-01-2024 take 1 capsule by mouth once daily cholecalciferol (Vitamin D-3) 125 MCG (5000 UT) capsule Indications: Vitamin D deficiency Take 1 capsule (125 mcg) by mouth Daily 90 capsule 1 08/03/2024 11/01/2024 Active Start: 11-28-2023 End: 02-26-2024 take 1 capsule by mouth once daily cholecalciferol (Vitamin D-3) 125 MCG (5000 UT) capsule Indications: Vitamin D deficiency Take 1 capsule (125 mcg) by mouth Daily 90 capsule 1 11/28/2023 02/26/2024 Active docusate sodium 100 mg oral capsule (18 sources) Start: 05-15-2024 End: 11-01-2024 take 2 capsules by mouth at bedtime docusate sodium (Colace) 100 MG capsule Indications: Constipation, unspecified constipation type Take 2 capsules (200 mg) by mouth at bedtime 180 capsule 1 08/03/2024 11/01/2024 Active Start: 11-28-2023 End: 02-28-2024 take 2 capsules by mouth at bedtime docusate sodium (Colace) 100 MG capsule Indications: Constipation, unspecified constipation type Take 2 capsules (200 mg) by mouth at bedtime 180 capsule 1 11/30/2023 02/28/2024 Active FLUoxetine 10 mg oral capsule (20 sources) Serotonin Reuptake Inhibitor Start: 11-28-2023 End: 11-01-2024 take 1 capsule by mouth once daily FLUoxetine (PROzac) 10 MG capsule Indications: Recurrent major depressive disorder, in remission Take 1 capsule (10 mg) by mouth Daily 90 capsule 1 08/03/2024 Active fluticasone propionate 0.05 mg/actuat metered dose nasal spray (19 sources) Corticosteroid Start: 09-20-2023 End: 01-23-2025 take 2 spray(s) nasal route once daily fluticasone (Flonase) 50 MCG/ACT nasal spray Indications: Chronic allergic rhinitis due to pollen Administer 2 sprays into each nostril Daily 48 g 1 10/25/2024 01/23/2025 Active ibuprofen 600 mg oral tablet (18 sources) Nonsteroidal Anti-inflammatory Drug Start: 10-25-2024 End: 12-24-2024 take 1 tablet by mouth once ibuprofen 600 MG tablet Indications: Pain Take 1 tablet (600 mg) by mouth every 12 (twelve) hours if needed for moderate pain (pain) 30 tablet 5 10/25/2024 12/24/2024 Active Start: 06-27-2024 End: 08-26-2024 take 1 tablet by mouth once ibuprofen 600 MG tablet Indications: Pain Take 1 tablet (600 mg) by mouth every 12 (twelve) hours if needed for moderate pain (pain) 30 tablet 3 06/27/2024 08/26/2024 Active Start: 04-16-2024 End: 07-15-2024 take 1 tablet [...] 04/07/2024 Active loratadine 10 mg oral tablet (20 sources) Start: 11-07-2023 End: 11-01-2024 take 1 tablet by mouth once daily loratadine (Claritin) 10 MG tablet Indications: Chronic allergic rhinitis due to pollen Take 1 tablet (10 mg) by mouth Daily 90 tablet 1 08/03/2024 Active omeprazole 20 mg delayed release oral capsule (20 sources) Proton Pump Inhibitor Start: 11-07-2023 End: 10-21-2024 take 1 capsule by mouth in the evening omeprazole (PriLOSEC) [address] capsule Indications: Gastroesophageal reflux disease without esophagitis Take 1 capsule (20 mg) by mouth in the evening 90 capsule 1 07/23/2024 Active ondansetron 4 mg disintegrating oral tablet [...] Active rosuvastatin calcium 10 mg oral tablet (20 sources) HMG-CoA Reductase Inhibitor Start: 04-08-2023 End: 09-03-2024 take 1 tablet by mouth once daily in the evening rosuvastatin (Crestor) 10 MG tablet Indications: Mixed hyperlipidemia GIVE 1 TABLET BY MOUTH EVERY EVENING (8PM) 90 tablet 1 09/03/2024 Active Problems Active Problems Problem Classification Problem Date Documented Date Episodic/Chronic Disorders of lipid metabolism (20 sources) Mixed hyperlipidemia; Translations: [Mixed hyperlipidemia] Onset: 04-02-2023 04-02-2023 Chronic Mood disorders (20 sources) Recurrent major depression in remission; Translations: [Major depressive disorder, recurrent, in remission, unspecified] Onset: 06-17-2023 06-17-2023 Chronic Nutritional deficiencies (20 sources) Vitamin D deficiency; Translations: [Vitamin D deficiency, unspecified] Onset: 06-17-2023 06-17-2023 Chronic Osteoarthritis (20 sources) Bilateral arthritis of knees; Translations: [Bilateral primary osteoarthritis of knee] Onset: 03-26-2019 06-07-2023 Chronic Other upper respiratory disease (20 sources) Allergic rhinitis due to pollen; Translations: [Allergic rhinitis due to pollen] Onset: 06-04-2019 06-07-2023 Chronic Residual codes; unclassified (1 source) Family history of malignant neoplasm, unspecified; Translations: [FAM HX MALIGNANT NEOPLASM UNS] Onset: 12-03-2021 Episodic Residual codes; unclassified (20 sources) Pain; Translations: [Pain, unspecified] Onset: 08-02-2023 08-02-2023 Episodic Past or Other Problems Problem Classification Problem Date Documented Da te Episodic/Chronic Diabetes mellitus without complication (19 sources) Increased glucose level; Translations: [Other abnormal glucose] Onset: 9 06-07-2023 Episodic Esophageal disorders (20 sources) Gastroesophageal reflux disease without esophagitis; Translations: [Gastro-esophageal reflux disease without esophagitis] Onset: 4 Resolved: 4 01-19-2024 Chronic Mood disorders (19 sources) Mood disorders Onset: 4 Resolved: 5 06-07-2023 Nausea and vomiting (20 sources) Nausea and vomiting; Translations: [Nausea with vomiting, unspecified] Onset: 4 12-26-2023 Episodic Other and unspecified benign neoplasm (8 sources) Tubular adenoma of colon; Translations: [Benign neoplasm of colon, unspecified] Onset: 5 06-27-2024 Episodic Other gastrointestinal disorders (20 sources) Constipation; Translations: [Constipation, unspecified] Onset: 8 06-07-2023 Episodic Other gastrointestinal disorders (19 sources) Heartburn; Translations: [Heartburn] Onset: 4 08-02-2023 Episodic Other non-traumatic joint disorders (8 sources) Pain in left knee; Translations: [Pain in joint, lower leg] Onset: 5 06-27-2024 Episodic Other nutritional; endocrine; and metabolic disorders (20 sources) Body mass index 25-29 - overweight; Translations: [Overweight] Onset: 4 06-07-2023 Episodic Other screening for suspected conditions (not mental disorders or infectious disease) (20 sources) Encounter for screening mammogram for malignant neoplasm of breast; Translations: [Patient encounter status] Onset: 2 Episodic Residual codes; unclassified (19 sources) Menopause present; Translations: [Asymptomatic menopausal state] Onset: 9 06-07-2023 Episodic Screening and history of mental health and substance abuse codes (19 sources) Abnormal developmental screening; Translations: [Encounter for screening for unspecified developmental delays] Onset: 8 06-07-2023 Episodic Viral infection (19 sources) Viral disease; Translations: [Viral infection, unspecified] Onset: 4 Resolved: 5 12-26-2023 Episodic Results Test Name Value Interpretation Reference Range Facility ALL CBC WITH AUTO DIFFon BASOPHILS ABSOLUTE AUTO 0 [facility] Basophils/100 WBC (Bld) 0.5 % 0.2 - 2.0 % [facility] Eosinophils/100 WBC (Bld) 2.1 % 0.9 - 7.0 % [facility] Erythrocyte distribution width (RBC) [Ratio] 12.9 % 11.0 - 15.0 % [facility] Hematocrit (Bld) [Volume fraction] 40.1 % 36.0 - 48.0 % [facility] Hem[facility] (Bld) [Mass/Vol] 13.6 g/dL 12.0 - 16.0 g/dL [facility] IMMATURE [facility]OCYTES ABS [facility] Immature granulocytes/100 WBC (Bld) 0.3 % 0.0 - 0.5 % [facility] LYMPHOCYTES ABSOLUTE AUTO 2.5 [facility] Lymphocytes/100 WBC (Bld) 40.7 % 20.5 - 60.0 % [facility] MCH (RBC) [Entitic mass] 31.2 pg 26.7 - 34.0 pg [facility] MCHC (RBC) [Mass/Vol] 33.9 g/dL 29.9 - 35.2 g/dL [facility] MCV (RBC) [Entitic vol] 92 fL 81.0 - 99.0 fL [facility] MONOCYTES ABSOLUTE AUTO 0.4 [facility] Monocytes/100 WBC (Bld) 7.1 % 1.7 - 12.0 % [facility] NEUTROPHILS ABSOLUTE AUTO 3.1 [facility] Neutrophils/100 WBC (Bld) 49.3 % 43.0 - 75.0 % [facility] Platelet mean volume (Bld) [Entitic vol] 11.8 fL 9.5 - 13.5 fL [facility] EO # 0.1 [facility] PLT 247 [facility] RBC 4.36 [facility] WBC 6.2 [facility] XR Knee - left 1 or 2 Viewso n 07-05-2024 [place] [address] XRay Report Signed Patient: LUISA TORIBIO MR#: [id number] : 1965 Acct:[id number] Age/Sex: 58 / F ADM Date: 07/05/24 Loc: LAB Attending Dr: hCasity De La O NP Ordering Physician: Chasity De La O NP Date of Service: 07/05/24 Procedure(s): XR knee LT 2V Accession Number(s): [id number] cc: Chasity De La O NP [place] [id number] Patient Name: LUISA TORIBIO MRN: [facility]:[id number] date: 1965 Sex: F Assigned Patient Location: LAB Current Patient Location: LAB Accession/Order Number: [id number] Exam Date: 07/05/2024 12:42 Report Date: 07/05/2024 12:43 At the request of: CHASITY DE LA O NP Procedure: XR knee LT 2V 2 views left knee plain film COMPARISON: None HISTORY: Posterior knee pain for one day ACUTE FINDINGS: No acute findings DEGENERATIVE CHANGE: Unremarkable SOFT TISSUE FINDINGS: Unremarkable JOINT EFFUSION: None POSTOP CHANGES: None BONE MINERALIZATION: Adequate XR/XR knee LT 2V IMPRESSION: Unremarkable exam Impression dictated by: Jasvir Gutierrez M.D.07/05/2024 12:43 PM Dictation Location: [place] [address] Electronically authenticated by: [id number] Y Date: 07/05/2024 12:43 Dictated By: Jasvir Gutierrez D.O. Signed By: 07/05/24 1245 DD/ 1243 TD/TT: Personal Injury Paralegal: [facility] Radiology, Radiologist, MD - 07/05/2024 [place] [address] XRay Report Signed Patient: LUISA TORIBIO MR#: [id number] : 1965 Acct:[id number] Age/Sex: 58 / F ADM Date: 07/05/24 Loc: LAB Attending Dr: Chasity De La O DIRECTOR TRANSPORTATION Ordering Physician: Chasity De La O NP Date of Service: 07/05/24 Procedure(s): XR knee LT 2V Accession Number(s): [id number] cc: Chasity De La O NP The [place] [address] Patient Name: LUISA TORIBIO MRN: [facility]:[id number] date: 1965 Sex: F Assigned Patient Location: LAB Current Patient Location: LAB Accession/Order Number: [id number] Exam Date: 07/05/2024 12:42 Report Date: 07/05/2024 12:43 At the request of: CHASITY DE LA O NP Procedure: XR knee LT 2V 2 views left knee plain film COMPARISON: None HISTORY: Posterior knee pain for one day ACUTE FINDINGS: No acute findings DEGENERATIVE CHANGE: Unremarkable SOFT TISSUE FINDINGS: Unremarkable JOINT EFFUSION: None POSTOP CHANGES: None BONE MINERALIZATION: Adequate XR/XR knee LT 2V IMPRESSION: Unremarkable exam Impression dictated by: Jasvir Gutierrez M.D.07/05/2024 12:43 PM Dictation Location: [place] [address] Electronically authenticated by: [id number] Y Date: 07/05/2024 12:43 Dictated By: Jasvir Gutierrez D.O. Signed By: 07/05/24 1245 DD/ 1243 TD/TT: Personal Injury Paralegal: [facility] Radiology Study observation (narrative) [facility] XR Knee - left 1 or 2 ViewsO rdered By: Radiologist Radiology on 07-05-2024 [facility] Work Phone: COMMON RESPIRATORY BACTERIAL /VIRAL INFECTION (HTRX)on 12-28-2023 ADENOVIRUS HADV-B 0.000 [facility] ADENOVIRUS HADV-B Not detected [facility] BORDETELLA PERTUSSIS, PARAPERTUSIS, BRONCHISEPTICA 0.000 [facility] BORDETELLA PERTUSSIS, PARAPERTUSIS, BRONCHISEPTICA Not detected [facility] CHLAMYDIA PNEUMONIAE 0.000 [facility] CHLAMYDIA PNEUMONIAE Not detected [facility] CORONAVIRUS (NL63, OC43, AND HKU1) 0.000 [...] INFLUENZA VIRUS A, B Not detected [facility] Interpretation and review of laboratory results [...] RNA RIGOBERTO+probe Ql (Unsp spec) Positive Abnormal [facility] SARS-CoV-2 (COVID-19) RNA RIGOBERTO+probe Ql (Unsp spec) Detected Abnormal [facility] STREPTOCOCCUS PNEUMONIAE 0.000 [facility] STREPTOCOCCUS PNEUMONIAE Not detected [facility] UA (CLEAN/CATCH) [facility] OPIC IF INDICATEon 12-27-2023 BILIRUBIN URINE Negative NEGATIVE [facility] BLOOD URINE TRACE-I NEGATIVE [facility] Clarity (U) CLOUDY Abnormal CLEAR [facility] Color (U) YELLOW YELLOW [facility] GLUCOSE URINE UA Negative NEGATIVE mg/dL [facility] Interpretation and review of laboratory results Abnormal [facility] Ketones Ql (U) Negative NEGATIVE mg/dL [facility] H ealthcare Leukocyte esterase Test strip Ql (U) Negative NEGATIVE [facility] NITRITE URINE Negative NEGATIVE [facility] Health care pH (U) 6.5 [pH] 5.0 - 9.0 [facility] PROTEIN URINE Negative NEG/TRACE mg/dL [facility] SPECIFIC GRAVITY URINE 1.025 1.005 - 1.025 [facility] URINE MICROSCOPIC INDICATED YES [facility] UROBILINOGEN URINE 0.2 EU/dL 0.2 - 1.0 EU/dL [facility] Urinalysis macro (dipstick) panel (U)on 12-26-2023 Bilirubin, UA Negative Negative - 4(70) +++ mg/dL [facility] Blood, UA Positive Negative - 50 Ignacio/mcL [facility] Clarity, UA Turbid [facility] re Color, UA Dark Leona [facility] Glucose, UA Negative Negative - 1999(110) ++++ mg/dL [facility] Interpretation and review of laboratory results Abnormal [facility] Ketones, UA Negative Negative - 160(16) ++++ mg/dL [facility] Leukocytes, UA Negative Negative - 500+++ Donny/mcL [facility] Nitrite, UA Negative Negative - Positive [facility] pH, UA 6.5 5 - 9 [facility] Protein, UA Trace Negative - 1999(20) ++++ mg/dL [facility] Spec Grav, UA 1.030 1 - 1.03 [facility] Urobilinogen, UA 2.0 0.2 - 12 mg/dL [facility] MG MAMM SCREEN 3D KATHY CADon 12-01-2021 MG MAMM SCREEN 3D KATHY CAD Patient: LUISA TORIBIO. Exam Date: 12/01/2021 : 1965 Gender:F Ordering : ANA TamelaAnette MEZA Admission #: [id number] Family : Order #: [id number] CLICK HERE TO VIEW EXAM RADIOLOGY REPORT [...] unknown cancer at age 57. LOCATION: [facility] BREAST COMPOSITION: Scattered areas fibroglandular density. FINDINGS: [...] MD on 12/01/2021 at 14:36 Normal [facility] XR lumbar spine min 4V*on XR lumbar spine min 4V* [facility] Main [place] [address] [place] [address] XRay Report Signed Patient: Luisa Toribio MR#: [id number] : 1965 Acct:[id number] Age/Sex: 54 / F ADM Date: 08/24/20 Loc: XDUCLY Room: Type: [facility] Attending Dr: Nelia Ornelas APRN, DIRECTOR TRANSPORTATION-C Ordering Provider: Nelia Ornelas APRN Date of Service: 08/24/20 XR/XR lumbar spine min 4V*: Acute bilateral low back pain without sciatica Copies to: Nelia Ornelas CHEMICAL TECHNICIAN XR lumbar spine min 4V* 08/24/2020 11:07 [...] Sim Carl M.D.08/24/2020 11:39 AM Dictation Location: [place] [address] Transcribed By: [facility] 08/24/20 1139 Dictated By: Sim Carl II, MD 08/24/20 1137 Signed By: 08/24/20 1139 [facility] Vital Signs Date Time Vital Sign Value Performing Clinician Destiny nolan 12-26-2023 09:43-0400 Body height 149.9 cm Chasity De La O NP Work Phone: [facility] 12-26-2023 09:43-0400 Body mass index (BMI) [Ratio] 28.68 kg/m2 Chasity De La O DIRECTOR TRANSPORTATION Work Phone: [facility] 12-26-2023 09:43-0400 Body temperature 98.1 [degF] Chasity De La O DIRECTOR TRANSPORTATION Work Phone: [facility] 12-26-2023 09:43-0400 Body weight 64.41 kg Chasity De La O DIRECTOR TRANSPORTATION Work Phone: [facility] 12-26-2023 09:43-0400 Diastolic blood pressure 76 mm[Hg] Chasity De La O DIRECTOR TRANSPORTATION Work Phone: [facility] 12-26-2023 09:43-0400 Heart rate 96 /min Chasity Aichholz DIRECTOR TRANSPORTATION Work Phone: [facility] 12-26-2023 09:43-0400 SaO2% (BldA) [Mass fraction] 98 % Chasity Aichholz DIRECTOR TRANSPORTATION Work Phone: [facility] 12-26-2023 09:43-0400 Systolic blood pressure 118 mm[Hg] Chasity Aichholz DIRECTOR TRANSPORTATION Work Phone: [facility] Healthcare Encounters Encounter Date Encounter Type Care Provider Facility Start: 11-21-2024 End: 11-21-2024 Refill Chasity Aichholz DIRECTOR TRANSPORTATION Work Phone: [facility] Comment on above: Pain Start: 10-25-2024 End: 10-25-2024 Refill Chasity Aichholz DIRECTOR TRANSPORTATION Work Phone: [facility] Comment on above: Pain; Chronic allergic rhinitis due to pollen Start: 08-31-2024 End: 09-03-2024 Refill Chasity Aichholz DIRECTOR TRANSPORTATION Work Phone: [facility] Comment on above: Mixed hyperlipidemia ([facility]) Start: 08-03-2024 End: 08-03-2024 Refill Chasity Aichholz DIRECTOR TRANSPORTATION Work Phone: [facility] Comment on above: Recurrent major depr essive disorder, in remission (HCC) ([facility]); Constipation, unspecified constipation type; Chronic allergic rhinitis due to pollen; Vitamin D deficiency Start: 07-23-2024 End: 07-23-2024 Refill Chasity Aichholz DIRECTOR TRANSPORTATION Work Phone: [facility] Comment on above: Gastroesophageal ref lux disease without esophagitis Start: 07-13-2024 End: 07-13-2024 Refill Chasity Aichholz DIRECTOR TRANSPORTATION Work Phone: [facility] Start: 07-05-2024 End: 07-05-2024 [facility] Result Encounter Chasity Aichholz DIRECTOR TRANSPORTATION Work Phone: [facility] External Department Unsolicited Start: 07-05-2024 End: 07-05-2024 [facility] Result Encounter Chasity Jaylyn DIRECTOR TRANSPORTATION Work Phone: [facility] External Department Unsolicited Start: 06-27-2024 End: 06-27-2024 ambulatory CHASITY JAYLYN Not Available Start: 05-15-2024 End: 05-15-2024 Refill Chasity Sergoz DIRECTOR TRANSPORTATION Work Phone: [facility] Comment on above: Recurrent major depr essive disorder, in remission (HCC) ([facility]/HCC); Constipation, unspecified constipation type; Vitamin D deficiency; Chronic allergic rhinitis due to pollen Start: 04-16-2024 End: 04-16-2024 Refill Chasity Radhaholz DIRECTOR TRANSPORTATION Work Phone: [facility] Comment on above: Arthritis Start: 03-16-2024 End: 03-16-2024 Refill Chasity Radhaholz DIRECTOR TRANSPORTATION Work Phone: [facility] Comment on above: Mixed hyperlipidemia ([facility]/HCC) Start: 01-19-2024 End: 01-19-2024 Refill Chasity Sergoz DIRECTOR TRANSPORTATION Work Phone: [facility] Comment on above: Gastroesophageal ref lux disease without esophagitis Start: 12-27-2023 End: 12-27-2023 Orders Only Chasity Jaylyn DIRECTOR TRANSPORTATION Work Phone: [facility] Comment on above: Nausea and vomiting, unspecified vomiting type (Primary Dx) Start: 12-26-2023 End: 12-26-2023 Bamboo flowsheet Chasity Jaylyn DIRECTOR TRANSPORTATION Work Phone: [facility] Start: 12-26-2023 End: 12-28-2023 Bamboo flowsheet Chasity Sergoz DIRECTOR TRANSPORTATION Work Phone: [facility] Start: 12-26-2023 End: 12-27-2023 [facility] Result Encounter Chasity Jaylyn DIRECTOR TRANSPORTATION Work Phone: [facility] External Department Unsolicited Start: 12-26-2023 End: 12-28-2023 External Result Encounter Chasity Jaylyn DIRECTOR TRANSPORTATION Work Phone: [facility] External Department Unsolicited Start: 12-26-2023 End: 12-26-2023 Office outpatient visit 15 minutes Chasity Jaylyn DIRECTOR TRANSPORTATION Work Phone: [facility] Comment on above: Viral illness (Prima ry Dx); Nausea and vomiting, unspecified vomiting type; Overweight (BMI 25.0-29.9) Start: 12-26-2023 End: 12-26-2023 ambulatory CHASITY RADHAHOLZ Not Available Start: 11-30-2023 End: 11-30-2023 Refill Chasity De La O DIRECTOR TRANSPORTATION Work Phone: [facility] Comment on above: Constipation, unspec ified constipation type Start: 10-18-2023 End: 10-18-2023 ambulatory CHASITY AICHHOLZ Not Available Start: 06-07-2023 Patient encounter procedure Uzma theodore Jaylyn DIRECTOR TRANSPORTATION Work Phone: [facility] Start: 12-01-2021 End: 12-02-2021 ambulatory [facility] Facility: Procedures Date Procedure Procedure Detail Performing Clinician Start: 07-05-2024 Radiologic examinati on knee 1/2 views Chasity De LaO DIRECTOR TRANSPORTATION Work Phone: Start: 07-05-2024 ALL CBC WITH AUTO DIFF Chasity De La O DIRECTOR TRANSPORTATION Work Phone: Start: 12-26-2023 Urnls dip stick/tabl et rgnt non-auto w/o micrscp Chasity De La O DIRECTOR TRANSPORTATION Work Phone: Start: 12-26-2023 TB[facility] UA (CLEAN/CATCH) MICROSCOPIC IF INDICATE Chasity De La O DIRECTOR TRANSPORTATION Work Phone: Start: 12-26-2023 COMMON RESPIRATORY BACTERIAL/VIRAL INFECTION (HTRX) Chasity De La O DIRECTOR TRANSPORTATION Work Phone: Start: 12-14-2023 Mammography Chasity rose DIRECTOR TRANSPORTATION Work Phone: Start: 12-08-2022 Mammography Chasity rose DIRECTOR TRANSPORTATION Work Phone: Start: 09-24-2019 Colonoscopy Chasity rose DIRECTOR TRANSPORTATION Work Phone: Plan of Treatment Date Care Activity Detail Author Start: 06-27-2025 Medicare Annual Wellness (AWV) Medicare Annual Wellness (AWV) [facility] Start: 01-02-2025 End: 01-02-2025 Patient encounter procedure 01/02/2025 9:40 AM EDT Office Visit [facility] [address] [place] [phone] Chasity De La O, SAHIL [address] [place] [phone] [facility] Start: 12-13-2024 Screening for malign ant neoplasm of breast Mammogram [facility] Start: 12-10-2024 Influenza vaccination [facility] Start: 09-23-2024 Screening for malign ant neoplasm of colon [facility] Start: 06-27-2024 End: 06-27-2024 Patient encounter procedure 06/27/2024 11:00 AM EDT Office Visit [facility] [address] [place] [phone] Chasity De La O, SAHIL [address] [place] [phone] [facility] Start: 06-07-2024 Medicare Annual Wellness (AWV) Medicare Annual Wellness (AWV) [facility] Start: 05-29-2024 End: 05-29-2024 [facility] Start: 02-09-2024 Influenza vaccination Influenza Vacc ine (#1) [facility] Comment on above: Postponed from 12/10 (Patient Does Not Have Time) Start: 12-27-2023 End: 12-26-2024 Bacteria identified in Urine by Culture Urine culture (clean catch) Microbiology Routine Nausea and vomiting, unspecified vomiting type Expected: 12/27/2023 (Approximate), Expires: 12/26/2024 [facility] Comment on above: Expected: 12/27/2023 (Approximate), Expires: 12/26/2024 Start: 12-27-2023 End: 12-26-2024 Urinalysis complete panel - Urine Urinalysis with reflex microscopic (clean catch) Lab Routine Nausea and vomiting, unspecified vomiting type Expected: 12/27/2023 (Approximate), Expires: 12/26/2024 [facility] Work Phone: Comment on above: Expected: 12/27/2023 (Approximate), Expires: 12/26/2024 Start: 12-26-2023 End: 12-25-2024 COMMON RESPIRATORY BACTERIAL/VIRAL INFECTION (HTRX) COMMON RESPIRATORY BACTERIAL/VIRAL INFECTION (HTRX) Lab High Priority Viral illness Expected: 12/26/2023 (Approximate), Expires: 12/25/2024 [facility] Work Phone: Comment on above: Expected: 12/26/2023 (Approximate), Expires: 12/25/2024 Start: 12-26-2023 End: 12-25-2024 URINARY TRACT INFECTION (HTRX) URINARY TRACT INFECTION (HTRX) Lab Routine Nausea and vomiting, unspecified vomiting type Expected: 12/26/2023 (Approximate), Expires: 12/25/2024 [facility] Comment on above: Expected: 12/26/2023 (Approximate), Expires: 12/25/2024 Start: 12-26-2023 End: 12-26-2023 Patient encounter procedure 12/26/2023 9:40 AM EDT Office Visit [facility] [address] [place] [address] Chasity De La O NP [address] [place] [address] Arrived [facility] Comment on above: Arrived Start: 12-11-2023 Influenza vaccination Influenza Vacc ine (#1) [facility] Start: 12-09-2023 Screening for malign ant neoplasm of breast Mammogram [facility] Start: 09-03-1995 Screening for malign ant neoplasm of cervix HPV/Cotest [facility] Start: 1986 Screening for malign ant neoplasm of cervix Pap Smear [facility] Start: 1965 Screening for malign ant neoplasm of colon [facility] Immunizations Immunization Date Immunization Notes Care Provider Fa cili 03-09-2023 influenza, injectabl e, quadrivalent, preservative free Chasity Aichholz DIRECTOR TRANSPORTATION Work Phone: [facility] 03-09-2023 influenza virus vacc ine, unspecified formulation Chasity Aichholz DIRECTOR TRANSPORTATION Work Phone: [facility] 03-22-2022 influenza, injectabl e, quadrivalent, preservative free Chasity Aichholz DIRECTOR TRANSPORTATION Work Phone: [facility] 01-22-2021 influenza, injectabl e, quadrivalent, preservative free Chasity Aichholz DIRECTOR TRANSPORTATION Work Phone: [facility] 03-20-2020 influenza, injectabl e, quadrivalent, preservative free Chasity Aichholz DIRECTOR TRANSPORTATION Work Phone: [facility] 01-16-2019 influenza, injectabl e, quadrivalent, preservative free Chasity Aichholz DIRECTOR TRANSPORTATION Work Phone: [facility] 08-29-2018 tetanus toxoid, redu constance diphtheria toxoid, and acellular pertussis vaccine, adsorbed Chasity Aichholz DIRECTOR TRANSPORTATION Work Phone: [facility] 01-19-2018 influenza, injectabl e, quadrivalent, preservative free Chasity Aichholz DIRECTOR TRANSPORTATION Work Phone: [facility] Payers Date Payer Category Payer Medicaid [id number] 1985 Medicare [id number] 1965 Unknown [id number] 1965 Unknown [id number] 1965 Unknown [id number] 1965 Unknown [id number] 1959 Medicaid [id number] 1959 Medicare [id number] Social History Date Type Detail Facility Start: 10-18-2023 Tobacco smoking stat [facility] Never smoked tobacco [facility] Start: 10-18-2023 Tobacco use and exposure Smoke less tobacco non-user [facility] Start: 12-26-2023 End: 06-27-2024 Alcoholic beverage intake Lifetime non-drinker (finding) [facility] Start: 06-07-2023 End: 06-27-2024 History of Social function [facility] Start: 06-07-2023 End: 06-27-2024 Humiliation, Afraid, Rape, and Kick questionnaire [HARK] [...] Not at all [facility] (I/We) worried wheth er (my/our) food would run out before (I/we) got money to buy more. Never true [facility] Start: 06-07-2023 Alcohol Comment diet pop: 1 daily [facility] Start: 1965 Sex assigned at Not on file [facility] NEGATED: Highlighted rowStart: NINF History of tobacco use Passive smoker [facility] Clinical Notes 12-26-2023 Chasity De La O NP - 12/26/2023 10:25 AM Erika De La O NP - 12/26/2023 10:25 AM NAREN ALFONSO - 12/26/2023 9:40 AM EDAndres De La O NP - 12/26/2023 9:40 [...] in abd, no fever Lives in a fpc with 2 others no illness there, works [employer] twice a week, and goes to a [...] TRACT INFECTION (HTRX) documented in this encounter [facility] Evaluation note Diagnosis Gastroesophageal reflux disease without esophagitis Esophageal reflux documented in this encounter [facility]* Diagnosis Encounter for subsequent annual wellness visit (AWV) in Medicare patient- Primary Overweight (BMI 25.0-29.9) Overweight Recurrent major depressive disorder, [place]) [place] Vitamin D deficiency Heart burn Heartburn Mixed hyperlipidemia ([facility]) Mixed hyperlipidemia Encounter for screening mammogram for malignant neoplasm of breast Elevated glucose level Viral illness- Primary Unspecified viral infection, in conditions classified elsewhere and of unspecified site Nausea and vomiting, unspecified vomiting type Overweight (BMI 25.0-29.9) Overweight Mixed hyperlipidemia ([facility]) Mixed hyperlipidemia documented [facility]* Diagnosis Viral illness- Primary Unspecified viral infection, in conditions classified elsewhere and of unspecified site Nausea and vomiting, unspecified vomiting type Overweight (BMI 25.0-29.9) Overweight documented [facility]* Diagnosis Nausea and vomiting, unspecified vomiting type- Primary documented in [facility] encounter [facility]* Diagnosis Constipation, unspecified constipation type documented in this encounter [facility]* Diagnosis Encounter for subsequent annual wellness visit (AWV) in Medicare patient- Primary Overweight (BMI 25.0-29.9) Overweight Recurrent major depressive disorder, in remission (HCC) [place] Vitamin D deficiency Heart burn Heartburn Mixed hyperlipidemia ([facility]) Mixed hyperlipidemia Encounter for screening mammogram for malignant neoplasm of breast Elevated glucose level Viral illness- Primary Unspecified viral infection, in conditions classified elsewhere and of unspecified site Nausea and vomiting, unspecified vomiting type Overweight (BMI 25.0-29.9) Overweight Arthritis Unspecified arthropathy, site unspecified documented [facility] encounter [facility] Diagnosis Encounter for subsequent annual wellness visit (AWV) in Medicare patient- Primary Overweight (BMI 25.0-29.9) Overweight Recurrent major depressive disorder, in remission (HCC) [place] Vitamin D deficiency Heart burn Heartburn Mixed hyperlipidemia ([facility]) Mixed hyperlipidemia Encounter for screening mammogram for malignant neoplasm of breast Elevated glucose level Viral illness- Primary Unspecified viral infection, in conditions classified elsewhere and of unspecified site Nausea and vomiting, unspecified vomiting type Overweight (BMI 25.0-29.9) Overweight Recurrent major depressive disorder, in remission (HCC) [place] Constipation, unspecified constipation type Vitamin D deficiency Chronic allergic rhinitis due to pollen documented in this encounter [facility]* Diagnosis Encounter for subsequent annual wellness visit (AWV) in Medicare patient- Primary Overweight (BMI 25.0-29.9) Overweight Recurrent major depressive disorder, in remission (HCC) ([facility])- Primary Vitamin D deficiency Heart burn Heartburn Mixed hyperlipidemia ([facility]) Mixed hyperlipidemia Encounter for screening mammogram for malignant neoplasm of breast Elevated glucose level Viral illness- Primary Unspecified viral infection, in conditions classified elsewhere and of unspecified site Nausea and vomiting, unspecified vomiting type Overweight (BMI 25.0-29.9) Overweight Encounter for subsequent annual wellness visit (AWV) in Medicare patient- Primary Heart burn Heartburn Overweight (BMI 25.0-29.9) Overweight Vitamin D deficiency Chronic allergic rhinitis due to pollen Mixed hyperlipidemia ([facility]) Mixed hyperlipidemia Recurrent major depressive disorder, in remission (HCC) ([facility]) Elevated glucose level Tubular adenoma of colon Benign neoplasm of colon Pain Generalized pain Chronic pain of left knee Gastroesophageal reflux disease without esophagitis Esophageal reflux documented in this encounter [facility]* Diagnosis Encounter for subsequent annual wellness visit (AWV) in Medicare patient- Primary Overweight (BMI 25.0-29.9) Overweight Recurrent major depressive disorder, in remission (HCC) ([facility])- Primary Vitamin D deficiency Heart burn Heartburn Mixed hyperlipidemia ([facility]) Mixed hyperlipidemia Encounter for screening mammogram for malignant neoplasm of breast Elevated glucose level Viral illness- Primary Unspecified viral infection, in conditions classified elsewhere and of unspecified site Nausea and vomiting, unspecified vomiting type Overweight (BMI 25.0-29.9) Overweight Encounter for subsequent annual wellness visit (AWV) in Medicare patient- Primary Heart burn Heartburn Overweight (BMI 25.0-29.9) Overweight Vitamin D deficiency Chronic allergic rhinitis due to pollen Mixed hyperlipidemia ([facility]) Mixed hyperlipidemia Recurrent major depressive disorder, in remission (HCC) ([facility]) Elevated glucose level Tubular adenoma of colon Benign neoplasm of colon Pain Generalized pain Chronic pain of left knee Recurrent major depressive disorder, in remission (HCC) ([facility]) Constipation, unspecified constipation type Chronic allergic rhinitis due to pollen Vitamin D deficiency documented in this encounter [facility]* Diagnosis Encounter for subsequent annual wellness visit (AWV) in Medicare patient- Primary Overweight (BMI 25.0-29.9) Overweight Recurrent major depressive disorder, in remission (HCC) ([facility])- Primary Vitamin D deficiency Heart burn Heartburn Mixed hyperlipidemia ([facility]) Mixed hyperlipidemia Encounter for screening mammogram for malignant neoplasm of breast Elevated glucose level Viral illness- Primary Unspecified viral infection, in conditions classified elsewhere and of unspecified site Nausea and vomiting, unspecified vomiting type Overweight (BMI 25.0-29.9) Overweight Encounter for subsequent annual wellness visit (AWV) in Medicare patient- Primary Heart burn Heartburn Overweight (BMI 25.0-29.9) Overweight Vitamin D deficiency Chronic allergic rhinitis due to pollen Mixed hyperlipidemia ([facility]) Mixed hyperlipidemia Recurrent major depressive disorder, in remission (HCC) ([facility]) Elevated glucose level Tubular adenoma of colon Benign neoplasm of colon Pain Generalized pain Chronic pain of left knee Mixed hyperlipidemia ([facility]) Mixed hyperlipidemia documented in this encounter [facility]* Diagnosis Encounter for subsequent annual wellness visit (AWV) in Medicare patient- Primary Overweight (BMI 25.0-29.9) Overweight Recurrent major depressive disorder, in remission- Primary Vitamin D deficiency Heart burn Heartburn Mixed hyperlipidemia Mixed hyperlipidemia Encounter for screening mammogram for malignant neoplasm of breast Elevated glucose level Viral illness- Primary Unspecified viral infection, in conditions classified elsewhere and of unspecified site Nausea and vomiting, unspecified vomiting type Overweight (BMI 25.0-29.9) Overweight Encounter for subsequent annual wellness visit (AWV) in Medicare patient- Primary Heart burn Heartburn Overweight (BMI 25.0-29.9) Overweight Vitamin D deficiency Chronic allergic rhinitis due to pollen Mixed hyperlipidemia Mixed hyperlipidemia Recurrent major depressive disorder, in remission Elevated glucose level Tubular adenoma of colon Benign neoplasm of colon Pain Generalized pain Chronic pain of left knee Pain Generalized pain Chronic allergic rhinitis due to pollen documented [facility] Diagnosis Encounter for subsequent annual wellness visit (AWV) in Medicare patient- Primary Overweight (BMI 25.0-29.9) Overweight Recurrent major depressive disorder, in remission- Primary Vitamin D deficiency Heart burn Heartburn Mixed hyperlipidemia Mixed hyperlipidemia Encounter for screening mammogram for malignant neoplasm of breast Elevated glucose level Viral illness- Primary Unspecified viral infection, in conditions classified elsewhere and of unspecified site Nausea and vomiting, unspecified vomiting type Overweight (BMI 25.0-29.9) Overweight Encounter for subsequent annual wellness visit (AWV) in Medicare patient- Primary Heart burn Heartburn Overweight (BMI 25.0-29.9) Overweight Vitamin D deficiency Chronic allergic rhinitis due to pollen Mixed hyperlipidemia Mixed hyperlipidemia Recurrent major depressive disorder, in remission Elevated glucose level Tubular adenoma of colon Benign neoplasm of colon Pain Generalized pain Chronic pain of left knee Pain Generalized pain documented in this encounter [facility] Summary Purpose Family History No Family History Records FoundNo Family History Records FoundNo Family History Records Found Advance Directives No Advanced Directives Records FoundNo Advanced Directives Records FoundNo Advanced Directives Records Found Additional Source Comments INFORMATION SOURCE (unrecogn ized section and content) DATE CREATED AUTHOR 06/02/2021 [facility] DATE CREATED AUTHOR AUTHOR'S ORGANIZ ATION 12/04/2021 [facility] DATE CREATED AUTHOR AUTHOR'S ORGANIZ ATION 06/29/2024 [facility] Care Teams (unrecognized sec tion and content) Gravel Wheeler Relationship Specialty Start Date End Date Archie Yeboah MD [address] [place] [phone] PCP - General Family Medicine 06/07/23 Chasity De La O NP [address] [place] [address] Nurse Practitioner Family Medicine 04/11/22 Chasity De La O NP [address] [place] [phone] Nurse Practitioner Family Medicine 06/07/23 Gravel Wheeler Relationship Specialty Start Date End Date Archie Yeboah MD [address] [place] [address] PCP - General Family Medicine 06/07/23 Chasity De La O NP [address] [place] [address] Nurse Practitioner Family Medicine 04/11/22 Chasity De La O NP [address] [place] [address] Nurse Practitioner Family Medicine 06/07/23 Gravel Wheeler Relationship Specialty Start Date End Date Archie Yeboah MD [address] [place] [address] PCP - General Family Medicine 06/07/23 Chasity De La O NP [address] [place] [address] Nurse Practitioner Family Medicine 04/11/22 Chasity De La O NP [address] [place] [phone] Nurse Practitioner Family Medicine 06/07/23 Gravel Wheeler Relationship Specialty Start Date End Date Archie Yeboah MD [address] [place] [address] PCP - General Family Medicine 06/07/23 Chasity De La O NP [address] [place] [address] Nurse Practitioner Family Medicine 04/11/22 Chasity De La O NP [address] [place] [address] Nurse Practitioner Family Medicine 06/07/23 Gravel Wheeler Relationship Specialty Start Date End Date Archie Yeboah MD [address] [place] [address] PCP - General Family Medicine 06/07/23 Chasity De La O NP [address] [place] [address] Nurse Practitioner Family Medicine 04/11/22 Chasity De La O NP [address] [place] [address] Nurse Practitioner Family Medicine 06/07/23 Gravel Wheeler Relationship Specialty Start Date End Date Archie Yeboah MD [address] [place] [phone] PCP - General Family Medicine 06/07/23 Chasity De La O NP [address] [place] [address] Nurse Practitioner Family Medicine 04/11/22 Chasity De La O NP [address] [place] [address] Nurse Practitioner Family Medicine 06/07/23 Gravel Wheeler Relationship Specialty Start Date End Date Archie Yeboah MD [address] [place] [phone] PCP - General Family Medicine 06/07/23 Chasity De La O NP [address] [place] [address] Nurse Practitioner Family Medicine 04/11/22 Chasity De La O NP [address] [place] [address] Nurse Practitioner Family Medicine 06/07/23 Gravel Wheeler Relationship Specialty Start Date End Date Archie Yeboah MD [address] [place] [address] PCP - General Family Medicine 06/07/23 Chasity De La O NP [address] [place] [address] Nurse Practitioner Family Medicine 04/11/22 Chasity De La O NP [address] [place] [address] Nurse Practitioner Family Medicine 06/07/23 Gravel Wheeler Relationship Specialty Start Date End Date Archie Yeboah MD [address] [place] [address] PCP - General Family Medicine 06/07/23 Chasity De La O NP [address] [place] [address] Nurse Practitioner Family Medicine 04/11/22 Chasity De La O NP [address] [place] [address] Nurse Practitioner Family Medicine 06/07/23 Gravel Wheeler Relationship Specialty Start Date End Date Archie Yeboah MD [address] [place] [address] PCP - General Family Medicine 06/07/23 Chasity De La O NP [address] [place] [address] PCP - ACO Reach 05/18/24 Chasity De La O NP [address] [place] [address] Nurse Practitioner Family Medicine 04/11/22 Chasity De La O NP [address] [place] [address] Nurse Practitioner Family Medicine 06/07/23 Gravel Wheeler Relationship Specialty Start Date End Date Archie Yeboah MD [address] [place] [address] PCP - General Family Medicine 06/07/23 Chasity De La O NP [address] [place] [address] PCP - ACO Reach 05/18/24 Chasity De La O NP [address] [place] [address] Nurse Practitioner Family Medicine 04/11/22 Chasity De La O NP [address] [place] [address] Nurse Practitioner Family Medicine 06/07/23 Gravel Wheeler Relationship Specialty Start Date End Date Archie Yeboah MD [address] [place] [address] PCP - General Family Medicine 06/07/23 Chasity De La O NP [address] [place] [address] PCP - ACO Reach 05/18/24 Chasity De La O NP [address] [place] [address] Nurse Practitioner Family Medicine 04/11/22 Chasity De La O NP [address] [place] [address] Nurse Practitioner Family Medicine 06/07/23 Gravel Wheeler Relationship Specialty Start Date End Date Archie Yeboah MD [address] [place] [address] PCP - General Family Medicine 06/07/23 Chasity De La O NP [address] [place] [address] PCP - ACO Reach 05/18/24 Chasity De La O NP [address] [place] [address] Nurse Practitioner Family Medicine 04/11/22 Chasity De La O NP [address] [place] [address] Nurse Practitioner Family Medicine 06/07/23 Gravel Wheeler Relationship Specialty Start Date End Date Archie Yeboah MD [address] [place] [address] PCP - General Family Medicine 06/07/23 Chasity De La O NP [address] [place] [address] PCP - ACO Reach 05/18/24 Chasity De La O NP [address] [place] [address] Nurse Practitioner Family Medicine 04/11/22 Chasity De La O NP [address] [place] [address] Nurse Practitioner Family Medicine 06/07/23 Reason for [...] BE BASED ON THE PRIMARY CLINICAL RECORDS. [employer] provides no warranty or guarantee of the accuracy or completeness of information in this document.
== END 2024-12-19 13:59 | disposition home or self-care (01) ==
LOC: MAMMO 13:58
PROVIDERS: PCP Nurse Practitioner; Visit Provider Nurse Practitioner
DX: Z12.31 Encounter for screening mammogram for malignant neoplasm of breast (principal); Z80.1 Family history of malignant neoplasm of trachea, bronchus and lung; Z80.8 Family history of malignant neoplasm of other organs or systems
CPT/HCPCS: 77063; 77067

== ENCOUNTER 2025-02-11 17:41 | Emergency (ER) | payer MEDICARE, MEDICAID, SELFPAY ==
--- OUTSIDE RECORDS SUMMARY | 2025-01-30 08:04 | XMS_ITS | Encounter Summary ---
Author Organization [facility] tem Address [id number] [address] [place] [address] Care Team Providers Care Manager Front Name Role Phone Archie Yeboah MD Primary Care Provider [phone] Reason for Visit * Auth/CertSpecialtyDiagnoses / ProceduresReferred By ContactReferred To Contact Diagnoses history of colon polyps Procedures ME COLORECTAL SCRN; HI RISK IND ME COLONOSCOPY FLX DX W/COLLJ SPEC WHEN PFRMD COLONOSCOPY DIAGNOSTIC / SCREENING COLONOSCOPY DIAGNOSTIC / SCREENING Tiffanie Teixeira MD [address] [place] [address] Phone: tel: fax: Referral IDStatusReasonStart DateExpiration DateVisits RequestedVisits [id number] Encounter Details DateTypeDepartmentCare Team (Latest Contact Info)Rasouyshpgt01/22/2025 9:04 AM EDT - 01/30/2025 11:40 AM EDTHospital Encounter [facility] [address] [place] [id number] Tiffanie Teixeira MD [address] [place] [address] Discharge Disposition: Home Social History Tobacco UseTypesPacks/DayYears UsedDateSmoking Tobacco: NeverSmokeless Tobacco: NeverAlcohol UseStandard Drinks/WeekCommentsNo0 (1 standard drink = 0.6 oz pure alcohol)PHQ-2AnswerDate RecordedTotal Zyyta1833ChildcareAnswerDate EamsnmmfXuydrtstdBladurs37/03/2019EmploymentAnswerDate RecordedEmploymentUnknown 09/11/2018Hunger ScreeningAnswerDate RecordedWithin the past 12 months we worried whether our food would run out before we got money to buy more.Never True04/28/2022Within the past 12 months the food we bought just didn't last and we didn't have money to get more.Never True3Purpose - LifeAnswerDate RecordedPurpose and direction in ldxjAewbjdg82/13/2021CommentsNoSex and Gender InformationValueDate RecordedSex Assigned at BirthNot on fileLegal Sex Azfeau9111/14/2014 11:42 AM EDTGender IdentityNot on fileSexual OrientationNot on filedocumented as of this encounter Last Filed Vital Signs Vital SignReadingTime TakenCommentsBlood Omplzpmo595/5201/30/2025 11:30 AM EDT Fnlhu595401/30/2025 11:30 AM XJSPmhjwjtsedm18.6 ??C (97.8 ??F)01/30/2025 11:04 AM EDTRespiratory Vkmc0044 11:30 AM EDTOxygen Qwaatzephh07%01/30/2025 11:30 AM EDTInhaled Oxygen Concentration--Iigcbt13.3 kg (144 lb)01/30/2025 9:21 AM EDT Fjmlsg014.1 cm (5' 5 )01/30/2025 9:21 AM EDTBody Mass Index23.9601/30/2025 9:21 AM EDTdocumented in this encounter Discharge Instructions * Discharge Instructions* Mary Bell RN - 01/30/2025 11:03 AM EDT You may feel dizzy, sleepy, and lightheaded due to medications you received. For the next 24 hours: Activity tolerated within Physical Limits Rest at home with moderate activity as tolerated Do not drink alcohol Do not drive Do not operate complex/hazardous machinery today Do not make important decisions or sign important papers Notify physician of: Temperature over 100 degrees farenheit Redness, Warmth, Hardness around IV site Allergic Reaction (rash, hives, itching, trouble breathing or swallowing) Questions, Problems, Concerns Preop phone number [phone] ext [phone] documented in this encounter Medications at Time of Discharge MedicationSigDispense QuantityRefillsLast FilledStart DateEnd Date acetaminophen (TYLENOL EXTRA STRENGTH) 500 mg tablet Indications:Pain,Fever, unspecified fever causeGIVE 1 TABLET BY MOUTH EVERY 6 HOURS NEEDED FOR HEADACHE, GENERAL BODY PAIN NOT INCLUDING LEG PAIN OR FEVER>100.4 30 tablet alum-mag hydroxide-simeth (MAALOX) 200-200-20 mg/5 mL suspension Indications:GERD without esophagitisTake 30 mL by mouth every 4 (four) hours as needed for cramping, indigestion or heartburn. 354 mL blood sugar diagnostic (glucose blood) strip Indications:Type 2 diabetes mellitus with hyperglycemia, without long-term current use of insulin ([facility])Monitor blood sugars every morning before breakfast and at dinner time. 70 strip blood-glucose meter (glucose monitoring kit) kit Indications:Type 2 diabetes mellitus with hyperglycemia, without long-term current use of insulin ([facility])Monitor blood sugars every morning before breakfast and at dinner time. 1 each 07/08/2020 TAMRA-GEST ANTACID 200 mg calcium (500 mg) chewable tablet Indications:HeartburnTAKE 1 TABLET BY MOUTH ONCE DAILY NEEDED FOR HEARTBURN OR INDIGESTION *CALL PHARMACY FOR REFILLSOK TO CHARGE* 90 tablet cholecalciferol, vitamin D3, (VITAMIN D3) 5,000 units capsule Indications:Vitamin D deficiencyGIVE 1 CAPSULE BY MOUTH DAILY AT BEDTIME 90 capsule docusate sodium (COLACE) 100 mg capsule Indications:Constipation, unspecified constipation type,External hemorrhoidGIVE 2 CAPSULES (200MG) BY MOUTH DAILY AT BEDTIME DX: CHRONIC CONSTIPATION MAY HOLD IF LOOSE STOOLS 60 capsule 10009/07/2022 FLUoxetine (PROzac) 10 mg capsule Indications:Anxiety and depressionGIVE 1 CAPSULE BY MOUTH ONCE DAILY FOR DEPRESSION. MAY TAKE LATER IF SHE SLEEPS IN 90 capsule fluticasone propionate (FLONASE) 50 mcg/actuation nasal spray Indications:Chronic allergic rhinitis due to pollenUSE 2 SPRAYS IN EACH NOSTRIL ONCE DAILY *CALL PHARMACY FOR REFILLS* 16 g 10008/18/2022 ibuprofen (MOTRIN) 800 mg tablet Indications:Arthritis of both kneestake 1 tablet by mouth every 8 hours if needed for pain 60 tablet 6006/09/2022 lancets [facility] Indications:Type 2 diabetes mellitus with hyperglycemia, without long-term current use of insulin ([facility])Inject 1 applicator into the skin 2 (two) times a day. 100 each loratadine (CLARITIN) 10 mg tablet Indications:Acute seasonal allergic rhinitisGIVE 1 TABLET BY MOUTH ONCE DAILY (8PM) 90 tablet omeprazole (PriLOSEC) 20 mg capsule Indications:GERD without esophagitisTAKE 1 CAPSULE BY MOUTH ONCE DAILY (8PM) 90 capsule rosuvastatin (CRESTOR) 10 mg tablet Indications:Mixed hyperlipidemiaGIVE 1 TABLET BY MOUTH EVERY EVENING (8PM) 90 tablet 3documented as of this encounter H&P Notes * Tiffanie Teixeira MD - 01/30/2025 9:13 AM EDT HISTORY AND PHYSICAL INTERVAL NOTE: Luisa Ferraro 1965 [id number] H&P reviewed. The patient was examined and there are no changes to the H&P. Tiffanie Teixeira MD Source Note - Janice Larry, DRESSMAKING TEACHER-SECURITY SHIFT SUPERVISOR - 01/17/2025 9:30 AM EDT Images from the original note were not included. Chief Complaint: History of colon polyps History of Present Illness Luisa Ferraro is a 59 y.o. female who presents to the office for surveillance colonoscopy. [facility] [place] and her brother who is her POA is present with her today. Her last colonoscopy was in 2019 for which she had 1 tubular adenoma removed in the sigmoid colon. She denies any bowel habit changes. No rectal bleeding. Brother states he thinks she has some constipation. Review of Systems Constitutional: Negative for fever and unexpected weight change. HENT: Negative for trouble swallowing. Respiratory: Negative for shortness of breath. Cardiovascular: Negative for chest pain. Gastrointestinal: Negative for abdominal pain, diarrhea, constipation and blood in stool. Genitourinary: Negative for dysuria and difficulty urinating. Musculoskeletal: Negative for gait problem. Skin: Negative for rash and wound. Neurological: Negative for dizziness, weakness and light-headedness. Hematological: Does not bruise/bleed easily. Psychiatric/Behavioral: Negative for confusion. Past Medical History: Diagnosis Date Abnormal mammogram 2011 Acid reflux External hemorrhoids 12/20/2017 Hyperlipidemia Mental disability Past Surgical History: Procedure Laterality Date COLONOSCOPY N/A 09/24/2019 Performed by Ciaran Stockton DO at [facility] HYSTERECTOMY 02/2008 OVARIAN CYST REMOVAL 2013 No Known Allergies Current Outpatient Medications: acetaminophen (TYLENOL EXTRA STRENGTH) 500 mg tablet, GIVE 1 TABLET BY MOUTH EVERY 6 HOURS NEEDED FOR HEADACHE, GENERAL BODY PAIN NOT INCLUDING LEG PAIN OR FEVER>100.4, Disp: 30 tablet, Rfl: 2 alum-mag hydroxide-simeth (MAALOX) 200-200-20 mg/5 mL suspension, Take 30 mL by mouth every 4 (four) hours as needed for cramping, indigestion or heartburn., Disp: 354 mL, Rfl: 3 blood sugar diagnostic (glucose blood) strip, Monitor blood sugars every morning before breakfast and at dinner time., Disp: 70 strip, Rfl: 2 blood-glucose meter (glucose monitoring kit) kit, Monitor blood sugars every morning before breakfast and at dinner time., Disp: 1 each, Rfl: 0 TAMRA-GEST ANTACID 200 mg calcium (500 mg) chewable tablet, TAKE 1 TABLET BY MOUTH ONCE DAILY NEEDED FOR HEARTBURN OR INDIGESTION *CALL PHARMACY FOR REFILLSOK TO CHARGE*, Disp: 90 tablet, Rfl: 2 cholecalciferol, vitamin D3, (VITAMIN D3) 5,000 units capsule, GIVE 1 CAPSULE BY MOUTH DAILY AT BEDTIME, Disp: 90 capsule, Rfl: 1 docusate sodium (COLACE) 100 mg capsule, GIVE 2 CAPSULES (200MG) BY MOUTH DAILY AT BEDTIME DX: CHRONIC CONSTIPATION MAY HOLD IF LOOSE STOOLS, Disp: 60 capsule, Rfl: 10 FLUoxetine (PROzac) 10 mg capsule, GIVE 1 CAPSULE BY MOUTH ONCE DAILY FOR DEPRESSION. MAY TAKE LATER IF SHE SLEEPS IN, Disp: 90 capsule, Rfl: 3 fluticasone propionate (FLONASE) 50 mcg/actuation nasal spray, USE 2 SPRAYS IN EACH NOSTRIL ONCE DAILY *CALL PHARMACY FOR REFILLS*, Disp: 16 g, Rfl: 10 ibuprofen (MOTRIN) 800 mg tablet, take 1 tablet by mouth every 8 hours if needed for pain, Disp: 60tablet, Rfl: 6 lancets misc, Inject 1 applicator into the skin 2 (two) times a day., Disp: 100 each, Rfl: 3 loratadine (CLARITIN) 10 mg tablet, GIVE 1 TABLET BY MOUTH ONCE DAILY (8PM), Disp: 90 tablet, Rfl: 3 omeprazole (PriLOSEC) 20 mg capsule, TAKE 1 CAPSULE BY MOUTH ONCE DAILY (8PM), Disp: 90 capsule, Rfl: 1 rosuvastatin (CRESTOR) 10 mg tablet, GIVE 1 TABLET BY MOUTH EVERY EVENING (8PM), Disp: 90 tablet, Rfl: 2 sod sulf-pot chloride-mag sulf 1.479-0.188- 0.225 gram tablet, Please see instructional sheet givenby physicians office., Disp: 24 tablet, Rfl: 0 Social History Socioeconomic History Marital status: Single Spouse name: Not on file Number of children: Not on file Years of education: Not on file Highest education level: Not on file Occupational History Not on file Tobacco Use Smoking status: Never Smokeless tobacco: Never Vaping Use Vaping status: Never Used Substance and Sexual Activity Alcohol use: No Drug use: No Sexual activity: Defer Other Topics Concern Not on file Social History Narrative 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 Social Drivers of Health Financial Resource Strain: Low Risk (06/07/2023) Received from [facility] Overall Financial Resource Strain (CARDIA) Difficulty of Paying Living Expenses: Not hard at all Food Insecurity: No Food Insecurity (06/07/2023) Received from [facility] Hunger Vital Sign Worried About Running Out of Food in the Last Year: Never true Ran Out of Food in the Last Year: Never true Transportation Needs: No Transportation Needs (06/07/2023) Received from [facility] PRAPARE - Transportation Lack of Transportation (Medical): No Lack of Transportation (Non-Medical): No Physical Activity: Insufficiently Active (06/07/2023) Received from [facility] Exercise Vital Sign Days of Exercise per Week: 3 days Minutes of Exercise per Session: 20 min Stress: No Stress Concern Present (06/07/2023) Received from [facility] [employer] [place] [employer] - Occupational Stress Questionnaire Feeling of Stress : Not at all Social Connections: Socially Isolated (06/07/2023) Received from [facility] Social Connection and Isolation Panel [NHANES] Frequency of Communication with Friends and Family: More than three times a week Frequency of Social Gatherings with Friends and Family: Once a week Attends Tenriism Services: Never Active Member of Clubs or Organizations: No Attends Club or Organization Meetings: Never Marital Status: Never Interpersonal Safety: Not At Risk (06/07/2023) Received from [facility] Humiliation, Afraid, Rape, and Kick questionnaire Fear of Current or Ex-Partner: No Emotionally Abused: No Physically Abused: No Sexually Abused: No Housing Instability: Low Risk (06/07/2023) Received from [facility] Housing Stability Vital Sign Unable to Pay for Housing in the Last Year: No Number of Places Lived in the Last Year: 1 Unstable Housing in the Last Year: No Family History Problem Relation Age of Onset Heart disease Mother Diabetes Mother Lung cancer Father Hypertension Brother Drug abuse Brother Cancer Brother Cancer Brother Objective Physical Exam Constitutional: General: She is not in acute distress. Appearance: Normal appearance. She is not ill-appearing. HENT: Head: Normocephalic and atraumatic. Mouth/Throat: Mouth: Mucous membranes are moist. Eyes: Pupils: Pupils are equal, round, and reactive to light. Cardiovascular: Rate and Rhythm: Normal rate. Pulmonary: Effort: Pulmonary effort is normal. No respiratory distress. Abdominal: General: There is no distension. Musculoskeletal: General: Normal range of motion. Skin: General: Skin is warm and dry. Neurological: Mental Status: She is alert and oriented to person, place, and time. Mental status is at baseline. Vital Signs: Blood pressure 180/85, pulse 64, height 165.1 cm (5' 5 ), weight 64 kg (141 lb 3.2 oz), not currently . Respiratory Source: No data recorded Admission Weight: Weight: 64 kg (141 lb 3.2 oz) Labs Lab Results Component Value Date WBC 10.1 04/28/2022 HGB 13.8 04/28/2022 HCT 40.1 04/28/2022 MCV 91 04/28/2022 PLT 281 04/28/2022 Lab Results Component Value Date GLU 126 (H) 04/28/2022 CALCIUM 9.1 04/28/2022 K 3.7 04/28/2022 CO2 23 04/28/2022 CL 104 04/28/2022 BUN 13 04/28/2022 CREATININE 0.65 04/28/2022 No results found for: AMYLASE No results found for: LIPASE Lab Results Component Value Date ALT 37 (H) 11/21/2021 AST 26 11/21/2021 ALKPHOS 119 11/21/2021 No results found for: INR , PROTIME Assessment Luisa Ferraro is a 59 y.o.female with history of tubular adenoma, due for surveillance scope. Plan Colonoscopy with possible biopsy and/or polypectomy. Risks, benefits, and alternatives discussed with patient. Patient verbalizes understanding and wishes to proceed. Evaluation included: Preparing to see the patient (e.g., review of tests) Obtaining and/or reviewing separately obtained history Performing a medically appropriate examination and/or evaluation Counseling and educating the patient/family/caregiver Referring and communicating with other health care navigator Encounter for colonoscopy due to history of colonic polyp [Z12.11, Z86.0100] ANIVAL MENG [facility] [place] This note was created with the assistance of a speech recognition program. While intending to generate a timely document that accurately reflects the content of the visit, no guarantee can be provided that every grammatical or spelling mistake has been or will be identified or corrected. Thank you for your understanding. ANIVAL Meng 01/17/25 0959 ANIVAL Meng 01/30/25 0913 documented in this encounter Plan of Treatment Not on file documented as of this encounter Procedures Procedure NamePriorityDate/TimeAssociated DiagnosisCommentsPR COLONOSCOPY FLX DX W/COLLJ SPEC WHEN PFRMD1 10:42 AM EDT history of colon polyps ME COLORECTAL SCRN; HI RISK IND01/30/2025 10:42 AM EDT history of colon polyps EOQFAIUAHKD26/22/2025 10:33 AM EDT PROVATION GLAIIXRNSIJHsahncx41/22/2025 9:13 AM EDT documented in this encounter Results * Colonoscopy (01/30/2025 10:33 AM EDT)Specimen (Source)Anatomical Location / LateralityCollection Method / VolumeCollection TimeReceived Time01/30/2025 10:33 AM EDT Narrative PM [facility] - 01/30/2025 10:58 AM EDT [facility] Patient Name: Luisa Ferraro ?? Procedure Date No Time: 01/30/2025 ?? CSN : [id number] Date of : 1965 Admit Type: Outpatient Age: 59 Room: [place] [address] Gender: Female Note Status: Finalized Attending MD: Tiffanie Teixeira , , Procedure: ? Colonoscopy Indications: ? High risk colon cancer surveillance: Personal history ? of adenomatous colonic polyps Providers: ? Tiffanie Teixeira Referring MD: ?Tiffanie Teixeira Medicines: ? Monitored Anesthesia Care Complications: ? No immediate complications. Procedure: ? After I obtained informed consent, the scope was ? passed under direct vision. Throughout the procedure, ? the patient's blood pressure, pulse, and oxygen ? saturations were monitored continuously. The [facility] ? PCF-[id number] # [id number] PEDIATRIC COLONOSCOPE was ? introduced through the anus and advanced to the cecum, ? identified by appendiceal orifice and ileocecal valve. ? The colonoscopy was performed without difficulty. The ? patient tolerated the procedure well. The quality of ? the bowel preparation was good. The ileocecal valve, ? appendiceal orifice, and rectum were photographed. Findings: ? The entire examined colon appeared normal. Estimated Blood Loss: ??Estimated blood loss: none. Impression: ?- The entire examined colon is normal. ? - No specimens collected. Recommendation: ?- Repeat colonoscopy in 10 years for screening ? purposes. Procedure Code(s): ? --- Professional --- ? G0105, Colorectal cancer screening; colonoscopy on ? individual at high risk Diagnosis Code(s): ? --- Professional --- ? Z12.11, Encounter for screening for malignant neoplasm of colon CPT copyright 2022 [employer]. All rights reserved. The codes documented in this report are preliminary and upon electroplating technician review may be revised to meet current compliance requirements. Mennatallah Puneet, MD Mennatallah M. Puneet, 01/30/2025 10:58:00 AM This report has been signed electronically.Tiffanie Teixeira Number of Addenda: 0 Note Initiated On: 01/30/2025 10:33 AM Procedure Note Tiffanie Teixeira MD - 01/30/2025 [facility] Patient Name: Luisa Ferraro Procedure Date No Time: 01/30/2025 CSN : [id number] Date of : 1965 Admit Type: Outpatient Age: 59 Room: [place] [address] Gender: Female Note Status: Finalized Attending MD: Tiffanie Teixeira , , Procedure: Colonoscopy Indications: High risk colon cancer surveillance: Personalhistory of adenomatous colonic polyps Providers: Tiffanie Teixeira Referring MD: Tiffanie Teixeira Medicines: Monitored Anesthesia Care Complications: No immediate complications. Procedure: After I obtained informed consent, the scope was passed under direct vision. Throughout theprocedure, the patient's blood pressure, pulse, and oxygen saturations were monitored continuously. TheZeroMailNOR[facility] PCF-[id number] # [id number] PEDIATRIC COLONOSCOPE was introduced through the anus and advanced to thececum, identified by appendiceal orifice and ileocecalvalve. The colonoscopy was performed without difficulty.The patient tolerated the procedure well. The qualityof the bowel preparation was good. The ileocecalvalve, appendiceal orifice, and rectum werephotographed. Findings: The entire examined colon appeared normal. Estimated Blood Loss: Estimated blood loss: none. Impression: - The entire examined colon is normal. - No specimens collected. Recommendation: - Repeat colonoscopy in 10 years for screening purposes. Procedure Code(s): --- Professional --- G0105, Colorectal cancer screening; colonoscopy on individual at high risk Diagnosis Code(s): --- Professional --- Z12.11, Encounter for screening for malignant neoplasm of colon CPT copyright 2022 [employer]. All rights reserved. The codes documented in this report are preliminary and upon electroplating technician reviewmay be revised to meet current compliance requirements. MD Tiffanie Larson, 01/30/2025 10:58:00 AM This report has been signed electronically.Tiffanie Teixeira Number of Addenda: 0 Note Initiated On: 01/30/2025 10:33 AM Authorizing ProviderResult TypeResult StatusTiffanie Teixeira MDGI PROCEDURE ORDERABLESFinal ResultPerforming OrganizationAddressCity/State/ZIP CodePhone Number PM CARDIOVASCULAR * Colonoscopy Report (01/30/2025 9:13 AM EDT)Specimen (Source)Anatomical Location / LateralityCollection Method / VolumeCollection TimeReceived Time Narrative SYSTEMGENERATED, DOCUMENTATION - 01/30/2025 9:13 AM EDT This order has been auto-finalized for image and report archival in PACs. *For full report details, please reach out to your physician. ??This image is visible to you in MyChart.* Authorizing ProviderResult TypeResult StatusTiffanie Teixeira MDIMG OR IMG ORDERABLESFinal Result documented in this encounter Visit Diagnoses Not on filedocumented in this encounter Administered Medications Medication OrderMAR ActionAction DateDoseRateSite lactated ringers infusion 50 mL/hr, intravenous, Continuous, Starting on Tue01/30/25 at 0915, Pre-op, If fluid restriction is not indicated, infuse at a rate up to 5 mL/kg/hr not to exceed the total replacement volume (2 ml/kg/hr) from the time NPO status was initiated. Uenubeems46/22/2025 10:56 AM EDTContinued by Sdwamuqucs10/22/2025 10:42 AM EDT50 mL/hrNew Bag01/30/2025 9:45 AM EDT50 mL/hr50 mL/hrdocumented in this encounter Active and Recently Administered Medications Times are shown in EDT.Medication Order/ lactated ringers infusion (CANCELED) 50 mL/hr, intravenous, Continuous, Starting on Tue01/30/25 at 0915, Pre-op, If fluid restriction is not indicated, infuse at a rate up to 5 mL/kg/hr not to exceed the total replacement volume (2 ml/kg/hr) from the time NPO status was initiated. * 0945 (New Bag - Provider: Luisa Pressley RN) * 1042 (Continued by Anesthesia - Provider: MINAL Mccabe) * 1055 (Paused - Provider: MINAL Mccabe - Comment: Switch to gravity) * 1056 (Restarted - Provider: MINAL Mccabe) * 1138 (Due: Order Ending - Provider: Automatic Transfer Provider - Comment: [Order ends at this time. Document the following action when infusion is complete: Stop Bag]) documented in this encounter Additional Health Concerns AssessmentNoted TimePHQ-9 Depression Total Score: 2:40 PM EDTA Body Mass Index follow-up plan has been documented for the qzttfmt9008/16/2022 6:09 AM EDTdocumented as of this encounter Care Teams Team MemberRelationshipSpecialtyStart DateEnd Date Archie Yeboah MD PCP - GeneralFamily Medicine12/28/22documented as of this encounter
--- OUTSIDE RECORDS SUMMARY | 2025-01-30 09:42 | XMS_ITS | Encounter Summary ---
Author Organization [facility] tem Address [id number] [address] [place] [address] Care Team Providers Care Last Code Striper Name Role Phone Archie Yeboah MD Primary Care Provider [phone] Reason for Visit * Auth/CertSpecialtyDiagnoses / ProceduresReferred By ContactReferred To Contact Diagnoses history of colon polyps Procedures [place] COLORECTAL SCRN; HI RISK IND [place] COLONOSCOPY FLX DX W/COLLJ SPEC WHEN PFRMD COLONOSCOPY DIAGNOSTIC / SCREENING COLONOSCOPY DIAGNOSTIC / SCREENING Tiffanie Teixeira MD [address] [place] [address] Phone: tel: fax: Referral IDStatusReasonStart DateExpiration DateVisits RequestedVisits [id number] Encounter Details DateTypeDepartmentCare Team (Latest Contact Info)Kwepwpybrlg93/22/2025 10:42 AM EDTAnesthesia Event [facility] [address] [place] [address] Andrew Suggs MD [address] [place] [id number] Anesthesia Record Procedure NameResponsible AnesthesiologistAnesthesia Start TimeAnesthesia Stop TimeCOLONOSCOPY DIAGNOSTIC / SCREENING (Anus)Andrew Suggs MD01/30/25 1042 01/30/25 0042RanlXsfqGduzcPpkxtwl52/22/[id number] Ejmpe6090Am Start Hywh0980 An InductionThe patient was reevaluated immediately before moderate or deep sedation use and before anesthesia induction.1046Patient Ready for Lfflijp3392 Mkabzpie2150oo stop aalx8184Uppvnygdo/Transfer From the HY6472Utcuasd to RN Transported to:Phase II, Spontaneous Ventilation, O2 per Room Air, 0 LPM Pt. Tolerated procedure well, vital signs stable and document on nursing record Care transferred to receiving QK8810Oe Stop* NameTotalpropofol (DIPRIVAN) injection 230.6 mglidocaine (XYLOCAINE) injection 2%50 mglactated ringers enyrrgaj095 mL * Agents No agents on file. * Blood No blood administrations on file. TypeDetailsPlacementRemovalPeripheral IVPlacement Date: 01/30/25; Placement Time: 943; Catheter Size: 22 G; Orientation: Anterior, Left, Proximal; Location: Forearm; Site Prep: Chlorhexadine and isopropyl alcohol; Inserted by: SANDY RN; Insertion Attempts: 4; Patient Tolerance: Tolerated well; Removal Date: 01/30/25; Removal Time: 943 by Luisa Pressley RN01/30/25 1138 by Mary Bell RNdocumented in this encounter Social History Tobacco UseTypesPacks/DayYears UsedDateSmoking Tobacco: NeverSmokeless Tobacco: NeverAlcohol UseStandard Drinks/WeekCommentsNo0 (1 standard drink = 0.6 oz pure alcohol)PHQ-2AnswerDate RecordedTotal Fuehy8503ChildcareAnswerDate KjeukxmaRyuljvbvoCzcvjxl89/03/2019EmploymentAnswerDate RecordedEmploymentUnknown 09/11/2018Hunger ScreeningAnswerDate RecordedWithin the past 12 months we worried whether our food would run out before we got money to buy more.Never True04/28/2022Within the past 12 months the food we bought just didn't last and we didn't have money to get more.Never True3Purpose - LifeAnswerDate RecordedPurpose and direction in qqpuMekbrie90/13/2021CommentsNoSex and Gender InformationValueDate RecordedSex Assigned at BirthNot on fileLegal Sex Wxqeyh2911/14/2014 11:42 AM EDTGender IdentityNot on fileSexual OrientationNot on filedocumented as of this encounter OR Notes * Anesthesia Postprocedure Evaluation - Andrew Suggs MD - 02/03/2025 1:42 PM EDT ANESTHESIA POST-EVALUATION [facility] Procedure Summary Date: 01/30/25 Room / Location: [facility] OR [address] [place] [address] Anesthesia Start: 1042 Anesthesia Stop: 1058 Procedure: COLONOSCOPY DIAGNOSTIC / SCREENING (Anus) Diagnosis: (history of colon polyps) Surgeons: Tiffanie Teixeira MD Responsible Provider: Andrew Suggs MD Anesthesia Type: MAC ASA Status: 3 Vitals: 01/30/25 1130 BP: 116/52 Pulse: 57 Resp: 16 Temp: SpO2: 97% Patient Evaluated: PACU Patient Participation: Complete - patient participated Patient Level of Consciousness: Awake Pain Score: 1 Pain Management: Adequate Airway Patency: Patent Anesthetic Complications: No Cardiovascular Status: Hemodynamically Stable Respiratory Status: Stable/Baseline, Nonlabored Ventilation and Room Air Post-op Hydration: Euvolemic Final Anesthesia Type: MAC Does patient meet criteria to D/C from PACU?: Yes Is patient sedated pharmacologically at PACU D/C?: No No notable events documented. * Anesthesia Preprocedure Evaluation - Andrew Suggs MD - 01/30/2025 9:59 AM EDT Images from the original note were not included. ANESTHESIA PRE-PROCEDURE EVALUATION [facility] Procedure(s): COLONOSCOPY DIAGNOSTIC / SCREENING ANESTHESIA PLAN ASA 3 Anesthesia Type: MAC Induction: Intravenous Airway Management: Nasal Cannula and Awake/Sedated Post op Pain Management: IV Analgesics Post-op Transfer Plan: Transfer to Phase II Anesthetic risks, plan and alternatives discussed with Patient and Spouse. Use of blood products discussed with Patient and Spouse who consented to blood products. Plan discussed with Attending and CLIP [employer] SUNGLASSES ASSEMBLER. ANESTHESIA PHYSICAL EXAM Patient summary reviewed and nursing notes reviewed. 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 Last Echo: No results found. Last Cath: No results found. Last EKG: No results found. Holter: No results found. Chest X-ray: No results found. Last Carotid: No results found. 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 Overall Financial Resource Strain (CARDIA) Difficulty of Paying Living Expenses: Not hard at all Food Insecurity: No Food Insecurity (06/07/2023) Received from [facility] Hunger Vital Sign Within the past 12 months, you worried that your food would run out before you got the money to buymore.: Never true Within the past 12 months, the food you bought just didn't last and you didn't have money to get more.: Never true Transportation Needs: No Transportation Needs (06/07/2023) Received from [facility] PRAPARE - Transportation Lack of Transportation (Medical): No Lack of Transportation (Non-Medical): No Physical Activity: Insufficiently Active (06/07/2023) Received from [facility] Exercise Vital Sign On average, how many days per week do you engage in moderate to strenuous exercise (like a brisk walk)?: 3 days On average, how many minutes do you engage in exercise at this level?: 20 min Stress: No Stress Concern Present (06/07/2023) Received from [facility] [place] [facility] Occupational Health - Occupational Stress Questionnaire Feeling of Stress : Not at all Social Connections: Socially Isolated (06/07/2023) Received from [facility] Social Connection and Isolation Panel In a typical week, how many times do you talk on the phone with family, friends, or neighbors?: More than three times a week How often do you get together with friends or relatives?: Once a week How often do you attend samaritan or synagogue services?: Never Do you belong to any clubs or organizations such as samaritan groups, unions, fraternal or athletic groups, or school groups?: No How often do you attend meetings of the clubs or organizations you belong to?: Never Are you , , , , never , or living with a partner?: Never Interpersonal Safety: Not At Risk (06/07/2023) Received from [facility] Humiliation, Afraid, Rape, and Kick questionnaire Within the last year, have you been afraid of your partner or ex-partner?: No Within the last year, have you been humiliated or emotionally abused in other ways by your partner or ex-partner?: No Within the last year, have you been kicked, hit, slapped, or otherwise physically hurt by your partner or ex-partner?: No Within the last year, have you been raped or forced to have any kind of sexual activity by your partner or ex-partner?: No Housing Instability: Low Risk (06/07/2023) Received from [facility] Housing Stability Vital Sign Unable to Pay for Housing in the Last Year: No Number of Places Lived in the Last Year: 1 Unstable Housing in the Last Year: No No Known Allergies Patient Active Problem List Diagnosis GERD without esophagitis Blood tests for routine general physical examination Other disorders of psychological development Encounter for screening for cardiovascular disorders Abnormal developmental screening Mixed hyperlipidemia Medicare annual wellness visit, subsequent BMI 28.0-28.9,adult Impacted cerumen of right ear Pelvic pain Constipation Need for immunization against influenza Right knee pain Fall Lumbar back pain Elevated glucose level Asymptomatic menopause Need for prophylactic vaccination with combined tjtanqfboz-xmxslye-aydgwwgat (DTP) vaccine Arthritis of both knees Chronic allergic rhinitis due to pollen Family history of diabetes mellitus Risk Factors: PONV: Intermediate Risk Total Score: 2 Score Rules Female patient Non-smoker Criteria that do not apply: History of PONV and/or Motion Sickness Intended opioid administration RCRI: Low Risk: Score of 0 = 3.9% (2.8-5.4%) Risk of major cardiac event Score of 1 = 6.0% (4.9-7.4%) Risk of major cardiac event Total Score: 0 Score Rules Criteria that do not apply: Cerebrovascular Disease Ischemic Heart Disease Congestive Heart Failure Elevated Risk Surgery Pre-operative Treatment with Insulin Pre-operative Creatinine >2 mg/dL / 176.8 mol/L Patient Active Problem List Diagnosis GERD without esophagitis Blood tests for routine general physical examination Other disorders of psychological development Encounter for screening for cardiovascular disorders Abnormal developmental screening Mixed hyperlipidemia Medicare annual wellness visit, subsequent BMI 28.0-28.9,adult Impacted cerumen of right ear Pelvic pain Constipation Need for immunization against influenza Right knee pain Fall Lumbar back pain Elevated glucose level Asymptomatic menopause Need for prophylactic vaccination with combined maikytpkvp-tyvpnkr-ptiugrfwx (DTP) vaccine Arthritis of both knees Chronic allergic rhinitis due to pollen Family history of diabetes mellitus documented in this encounter Plan of Treatment [...] from the time NPO status was initiated. Bviepswql21/22/2025 10:56 AM EDTContinued by Bbtqhmurum80/22/2025 10:42 AM EDT50 mL/hrNew Bag01/30/2025 9:45 AM EDT50 mL/hr50 mL/hr lidocaine (XYLOCAINE) 20 mg/mL (2 %) injection intravenous, As needed, Starting on Tue01/30/25 at 1045, Anesthesia Intra-op Given01/30/2025 10:45 AM EDT50 mg propofoL (DIPRIVAN) infusion intravenous, As needed, Starting on Tue01/30/25 at 1045, Anesthesia Intra-op New Bag01/30/2025 10:46 AM KFD364 mcg/kg/min78.36 mL/lrUbciw3201/30/2025 10:45 AM NTE520 mgdocumented in this encounter Additional Health Concerns AssessmentNoted TimePHQ-9 Depression Total Score: 2:40 PM EDTA Body Mass Index follow-up plan has been documented for the mivjkdy4608/16/2022 6:09 AM EDTdocumented as of this encounter Care Teams Team MemberRelationshipSpecialtyStart DateEnd Date Archie Yeboah MD PCP - GeneralFamily Medicine12/28/22documented as of this encounter
--- OUTSIDE RECORDS SUMMARY | 2025-01-30 10:00 | XMS_ITS | Encounter Summary ---
Author Organization [facility] tem Address [id number] [address] [place] [address] Care Team Providers Care It Business Process Architect Name Role Phone Archie Yeboah MD Primary Care Provider [phone] Reason for Visit * Auth/CertSpecialtyDiagnoses / ProceduresReferred By ContactReferred To Contact Diagnoses history of colon polyps Procedures [place] COLORECTAL SCRN; HI RISK IND [place] COLONOSCOPY FLX DX W/COLLJ SPEC WHEN PFRMD COLONOSCOPY DIAGNOSTIC / SCREENING COLONOSCOPY DIAGNOSTIC / SCREENING Tiffanie Teixeira MD [address] [place] [address] Phone: tel: fax: Referral IDStatusReasonStart DateExpiration DateVisits RequestedVisits [id number] Encounter Details DateTypeDepartmentCare Team (Latest Contact Info)Mfrxzqomind57/22/2025 11:00 AM EDT - 01/30/2025 11:30 AM EDTSurgery [facility] [address] [place] [id number] Tiffanie Teixeira MD [address] [place] [address] COLONOSCOPY DIAGNOSTIC / SCREENING [G0105 +1 more] Surgery Details Date/TimeStatusLocationORServicePatient ClassCase ClassCase TypeTrauma Case? 01/30/2025 11:00 AMPostedFREMONT SURGERYOR [facility] ElectivePanel 1 ProcedureLRB[facility] RegionWdel[facility] center ClassCommentsCOLONOSCOPY DIAGNOSTIC / SCREENINGN/AMonitored Anesthesia CareAnusClean Contaminated SurgeonSurgeon RoleServicePanelOmar, Peereinacarmen Blackman, HFSghmgdfTdqjlmr0noiqsxeyxa in this encounter Social History Tobacco UseTypesPacks/DayYears UsedDateSmoking Tobacco: NeverSmokeless Tobacco: NeverAlcohol UseStandard Drinks/WeekCommentsNo0 (1 standard drink = 0.6 oz pure alcohol)PHQ-2AnswerDate RecordedTotal Ghhtw6073ChildcareAnswerDate ThnvmfrhScdagsfkxRfmvcow99/03/2019EmploymentAnswerDate RecordedEmploymentUnknown 09/11/2018Hunger ScreeningAnswerDate RecordedWithin the past 12 months we worried whether our food would run out before we got money to buy more.Never True04/28/2022Within the past 12 months the food we bought just didn't last and we didn't have money to get more.Never True3Purpose - LifeAnswerDate RecordedPurpose and direction in dcjxYafwtmp26/13/2021CommentsNoSex and Gender InformationValueDate RecordedSex Assigned at BirthNot on fileLegal Sex Lduica6111/14/2014 11:42 AM EDTGender IdentityNot on fileSexual OrientationNot on filedocumented as of this encounter Last Filed Vital Signs Vital SignReadingTime TakenCommentsBlood Rpzerpbj993/5210 11:30 AM EDT Xjhty186301/30/2025 11:30 AM RBDSvhdjdkjayz57.6 ??C (97.8 ??F)01/30/2025 11:04 AM EDTRespiratory Cwbg5223 11:30 AM EDTOxygen Vqoayasxln31%01/30/2025 11:30 AM EDTInhaled Oxygen Concentration--Ntawzo10.3 kg (144 lb)01/30/2025 9:21 AM EDT Tcdzdn475.1 cm (5' 5 )01/30/2025 9:21 AM EDTBody [...] swallowing) Questions, Problems, Concerns Preop phone number [phone] ext [phone] documented in this encounter Medications at Time [...] hyperglycemia, without long-term current use of insulin ([facility]Monitor blood sugars every morning before breakfast and at dinner time. 70 strip blood-glucose meter (glucose monitoring kit) kit Indications:Type 2 diabetes mellitus with hyperglycemia, without long-term current use of insulin ([facility] [place]Monitor blood sugars every morning before breakfast and [...] pain 60 tablet 6006/09/2022 lancets [facility] [place] Indications:Type 2 diabetes mellitus with hyperglycemia, without long-term current use of insulin ([facility]Inject 1 applicator into the skin 2 (two) [...] AND PHYSICAL INTERVAL NOTE: Luisa Ferraro 1965 [id number] H&P reviewed. The patient was examined and there are no changes to the H&P. Tiffanie Teixeira MD Source Note - Hi Rivas, K 12 PRINCIPAL-CIRCULAR TANK COOPER - 01/17/2025 9:30 AM EDT Images from the original note were not included. Chief Complaint: History of colon polyps History of Present Illness Luisa Ferraro is a 59 y.o. female who presents to the office for surveillance colonoscopy. 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 Social Drivers of Health Financial Resource Strain: Low Risk (06/07/2023) Received from [facility] Overall Financial Resource Strain (CARDIA) Difficulty of Paying Living Expenses: Not hard at all Food Insecurity: No Food Insecurity (06/07/2023) Received from [facility] Hunger Vital Sign Worried About Running Out of Food in the Last Year: Never true Ran Out of Food in the Last Year: Never true Transportation Needs: No Transportation Needs (06/07/2023) Received from [facility] PRAPARE - Transportation Lack of Transportation (Medical): No Lack of Transportation (Non-Medical): No Physical Activity: Insufficiently Active (06/07/2023) Received from [facility] Exercise Vital Sign Days of Exercise per Week: 3 days Minutes of Exercise per Session: 20 min Stress: No Stress Concern Present (06/07/2023) Received from [facility] [place] of Occupational Health - Occupational Stress Questionnaire Feeling of Stress : Not at all Social Connections: Socially Isolated (06/07/2023) Received from [facility] Social Connection and Isolation Panel [NHANES] Frequency of Communication with Friends and Family: More than three times a week Frequency of Social Gatherings with Friends and Family: Once a week Attends Mandaen Services: Never Active Member of Clubs or Organizations: No Attends Club or Organization Meetings: Never Marital Status: Never Interpersonal Safety: Not At Risk (06/07/2023) Received from [facility] Humiliation, Afraid, Rape, and Kick questionnaire Fear of Current or Ex-Partner: No Emotionally Abused: No Physically Abused: No Sexually Abused: No Housing Instability: Low Risk (06/07/2023) Received from [facility] Housing Stability Vital Sign Unable to Pay [...] patient/family/caregiver Referring and communicating with other health md do resident urgent care Encounter for colonoscopy due to history of colonic polyp [Z12.11, Z86.0100] HI RIVAS, K 12 PRINCIPAL-CIRCULAR TANK COOPER [facility] [place] This note was created with the assistance of a speech recognition program. While intending to generate a timely document that accurately reflects the content of the visit, no guarantee can be provided that every grammatical or spelling mistake has been or will be identified or corrected. Thank you for your understanding. ANIVAL Jimenez 01/17/2559 ANIVAL Jimenez 01/30/25912 documented in this encounter Plan of Treatment Not on file documented as of this encounter Procedures Procedure NamePriorityDate/TimeAssociated DiagnosisCommentsPR COLONOSCOPY FLX DX W/COLLJ SPEC WHEN PFRMD1 10:42 AM EDT history of colon polyps WI COLORECTAL SCRN; HI RISK IND01/30/2025 10:42 AM EDT history of colon polyps OKTUCHXXKQM02/22/2025 10:33 AM EDT PROVATION LDHIYBKUBCMYwlwuvc09/22/2025 9:13 AM EDT documented in this encounter Results * Colonoscopy (01/30/2025 10:33 AM EDT)Specimen (Source)Anatomical Location / LateralityCollection Method / VolumeCollection TimeReceived Time01/30/2025 10:33 AM EDT Narrative PM CARDIOVASCULAR - 01/30/2025 10:58 AM EDT [facility] Patient Name: Luisa Freraro ?? Procedure Date No Time: 01/30/2025 ?? CSN : [id number] Date of : 1965 Admit Type: Outpatient Age: 59 Room: [place] [address] Gender: Female Note Status: Finalized Attending MD: [...] monitored continuously. The [employer] ? PCF-H190DL # [id number] PEDIATRIC COLONOSCOPE was ? introduced through the [...] malignant neoplasm of colon CPT copyright 2022 [employer]. All rights reserved. The codes documented in this report are preliminary and upon golf club assembler review may be revised to meet current compliance requirements. MD Tiffanie Larson, 01/30/2025 10:58:00 AM This report has been signed electronically.Tiffanie Teixeira Number of Addenda: 0 Note Initiated On: 01/30/2025 10:33 AM Procedure Note Tiffanie Teixeira MD - 01/30/[address] [facility] Patient Name: Luisa Ferraro Procedure Date No Time: 01/30/2025 CSN : [id number] Date of : 1965 Admit Type: Outpatient Age: 59 Room: [place] [address] Gender: Female Note Status: Finalized Attending MD: [...] pulse, and oxygen saturations were monitored continuously. [facility] PCF-H[facility]DL # [id number] PEDIATRIC COLONOSCOPE was introduced through the anus [...] malignant neoplasm of colon CPT copyright 2022 [employer]. All rights reserved. The codes documented in this report are preliminary and upon golf club assembler reviewmay be revised to meet current compliance [...] from the time NPO status was initiated. Oxbyacbjl10/22/2025 10:56 AM EDTContinued by Djwclxvpbn24/22/2025 10:42 AM EDT50 mL/hrNew Bag01/30/2025 9:45 AM EDT50 mL/hr50 mL/hrdocumented in this encounter Active and Recently Administered Medications Times are shown in EDT.Medication Order lactated ringers infusion (CANCELED) 50 mL/hr, intravenous, [...] follow-up plan has been documented for the nicydyy5108/16/2022 6:09 AM EDTdocumented as of this encounter Care Teams Team MemberRelationshipSpecialtyStart DateEnd Date Archie Yeboah MD PCP - GeneralFamily Medicine12/28/22documented as of this encounter
[2025-02-11] VITALS (9 sets, daily range): BP systolic 156–169; BP diastolic 66; PULSE 64; TEMP 36.3; O2SAT 97–100; BMI 23.4
--- OUTSIDE RECORDS SUMMARY | 2025-02-11 06:43 | XMS_ITS | Continuity of Care Document ---
Author Organization [facility] Address [address] [place] [address] Phone Care Team Providers Care Carbon Brusher Assembler Name Role Phone NO FAMILY, PHYSICIAN Primary Care Provider Unava Chasity Perkins NP-C Attending Provider Chasity De La O RADIO INTERFERENCE EXPERT-C Primary Care Provider [phone] Care Teams Patient Care Team Team Status: Active Member Role/Relationship Status Dates Chasity De La O NP-Jose Primary Care Provider Active Visit Care Team Team Status: Inactive Member Role/Relationship Status Dates PHYSICIAN NO FAMILY Primary Care Provider Active Start: January 02, 2025 End: January 02, 2025Idris Barry ProviderActiveStart: January 02, 2025 End: January 02, 2025 Patient Care Team Team Status: Inactive Member Role/Relationship Status Dates Chasity De La O NP-C Primary Care Provider Active Start: February 11, 2025 End: February 11, 2025Idris Barry ProviderActiveStart: February 11, 2025 End: February 11, 2025 Chief Complaint and Reason for Visit Chief Complaint Admit Date 6M January 02, 2025 9:32am high blood pressure February 11, 2025 1 0:55am Reason for Visit Admit Date GERD without esophagitis January 02, 2025 9:32am Osteoarthritis of knees, bilateral Septe mber 2024 9:32am Overweight (BMI 25.0-29.9) December 9:32am Recurrent depression January 02 9:32am Tubular adenoma of colon January 02, 2025 9:32am Overweight (BMI 25.0-29.9) February 11, 2025 10:55am Allergies, Adverse Reactions, Alerts Allergen Type Severity Reaction Last Updated Verified Status No Known Allergies Allergy Unknown December 30, 2024 1:50pmYesActive Social History Smoking Status Status Start Date End Date Date of Observa tion Never smoked tobacco (finding) June 08, 2015 1:15pm Observation Status Observation Response Date of Response Legal Sex Female (finding) Sex Assigned At BirthFemaleMay 1965 Family History Relationship Condition Age at Onset Recorded Date/T chanel father Unknown family memberDeceasedUnknownmotherDeceasedUnknown Problems Active Problems Problem Diagnosis/Recorded Date Onset Date Stat us Elevated glucose level December 30, 2024 1:54pm Unk nown Active Encounter for subsequent yesenia ua wellness visit (AWV) in Medicare patient December 30, 2024 1:55pm Unknown Active GERD with stricture without esophagitis December 1:55pm Unknown Active Breast cancer screening by mammogram December 30 1:55pm Unknown Active Recurrent depression December 30, 2024 1:55pm Unkno wn Active Osteoarthritis of knees, bilateral December 30 1:52pm Unknown Active Overweight (BMI 25.0-29.9) January 02, 2025 9:14am Unknown Active Mixed hyperlipidemia December 30, 2024 1:55pm Unkno wn Active Asymptomatic menopause December 30, 2024 1:52pm Unk nown Active GERD without esophagitis December 24, 2024 7:44pm U nknown Active Hx of hysterectomy December 30, 2024 1:51pm Unknown Active Tubular adenoma of colon December 30, 2024 1:55pm U nknown Active Chronic allergic rhinitis due to pollen December 1:54pm Unknown Active Constipation December 30, 2024 1:54pm Unknown Active Vitamin D deficiency December 30, 2024 1:56pm Unkno wn Active Medications Medication Status Dose Units Route Directions Qty Days Refills S tart Date Stop Date End Date Reason(s) Instructions Adherence Omeprazole 20 mg capsule,delayed release(DR/EC) Discontinued 20 MG PO Daily 90 1September 2024 11:00pmOctober 2024 8:30amGastroesophageal reflux disease without esophagitis Gastro-esophageal reflux disease without esophagitisFluoxetine 10 mg capsule Gwuxtg48DTQNFwjut276Vzmmowi 2024 8:27amRecurrent depressive disorder Major depressive disorder, recurrent, unspecifiedUnknownDocusate Sodium 100 mg mmnmrgoRrsljbfxzyux220ZZEOOcxop at bedtime as needed for ykxeehtugxpm533Olpaerm 2024 8:[facility] 20[facility] 9:06amRecurrent depressive disorder Constipation Major depressive disorder, recurrent, unspecified Constipation, unspecifiedCholecalciferol (Vitamin D3) 125 mcg (5,000 unit) wgbhczyQzragw7852OLQZEOIcrxe757Hrsdrtj 2024 8:28amVitamin D deficiency Vitamin D deficiency, unspecifiedUnknownLoratadine 10 mg ihpvjhPtlvgr57PPNHLsgbc 901[facility] 2024 8:28amChronic allergic rhinitis due to pollen Allergic rhinitis due to pollenUnknownFluticasone Propionate 50 mcg/actuation spray,wsjeogrqirFrwseg0SSFWPZTZANBPDUCLglif363Zsytftk 2024 8:29amChronic allergic rhinitis due to pollen Allergic rhinitis due to pollenUnknownOmeprazole 20 mg capsule,delayed release(DR/EC)Embsvz12FEFMKmcis727Nsrmzlw 2024 8:29amGastroesophageal reflux disease without esophagitis Gastro-esophageal reflux disease without esophagitisUnknownRosuvastatin 10 mg fhjjtkGfxeka81EYQHMotoy at mewkngk412Yeccpti 2024 8:29amMixed hyperlipidemia Mixed hyperlipidemiaUnknownDocusate Sodium 100 mg gffwmleDbmevu431QYBSQwidv at jchhqqz2079Vmmibfm 2024 9:06amRecurrent depressive disorder Constipation Major depressive disorder, recurrent, unspecified Constipation, unspecified constipationUnknownAcetaminophen 500 mg xnscjvCuzhrk430ZEBDVocmt 6 hours as neededSe2024 11:00pmUnknownFluoxetine 10 mg xfqwslaUnawhazdlbwk26 MGPODailySept2024 11:00pmM[facility] 2024 8:30amDocusate Sodium 100 mg wmkxlxzAkxzhnxetliz793WKJXBrwse at bedtimeSept2024 11:00pm February 04, 2025 8:30amIbuprofen 600 mg pbhfawNjnlle812HSOWBanrk 12 hours as neededDecember 29, 2024 11:00pmUnknownFluticasone Propionate 50 mcg/actuation spray,suspensionDiscontinuedINTRANASALSe2024 11:00pmOctober 2024 8:30amCholecalciferol (Vitamin D3) 125 mcg (5,000 unit) capsuleDiscontinued 5000UNITPODailySept2024 11:00pmOct2024 8:30amLoratadine 10 mg gttpiiYfuabimwtolf49CODMFzzolPoqvibzfk 20th, 2025 11:00pmOctober 2024 8:30amRosuvastatin 10 mg ehcjjmFyvqindhkatk48IUBDJwmmuRscrdsfsw 20th, 2025 11:00pmOctober 2024 8:30amCalcium Carbonate (Daniele-Gest Antacid) 200 mg calcium (500 mg) tablet,pduqeniuWipbde737LWCZQrilb as needed for dyspepsia January 14, 2025 11:00pmUnknown Vital Signs Vital Reading Result Reference Range Collection Date/Time Height 59.55 [in_i] January 02, 2025 8:76jcGbegez85.46 kgSept2024 8:49amBody Cptyhmjmmyp77.5 [degF]97.6-99.0January 02, 2025 8:49amHeart Rate72 /min 60-100January 02, 2025 8:49amRespiratory rate18 /kso92-19Phzmwmllk2024 8:49amOxygen saturation by Pulse ynekgwlc54 %95-100January 02, 2025 8:49amBP Prbuhiro545 mm[Hg]100-140Sept2024 8:49amBP Nbsbvjveq05 mm[Hg]60-100Sept2024 8:49amBMI (Body Mass Index)28.1 kg/a8KzkzyltdgJanuary 02, 2025 8:72rkUjlmkc67.5 [in_i]February 11, 2025 11:25weXdecmg53.55 kg February 11, 2025 11:12amBody Fxkyefmyjyt61.5 [degF]97.6-99.0February 11, 2025 11:12amHeart Rate74 /viq73-546QaaiyghyFebruary 11, 2025 11:12amRespiratory rate18 /min 12-24February 11, 2025 11:12amOxygen saturation by Pulse kawxijvk17 %95-100 February 11, 2025 11:12amBP Vhxwrvra271 mm[Hg]100-140February 11, 2025 11:18am BP Gzwcmtarw39 mm[Hg]60-100February 11, 2025 11:18amBMI (Body Mass Index)27.8 kg/w2XtmjrzcpFebruary 11, 2025 11:12am Advance Directives Advance Directive Response Recorded Date/ Time Advance Directives No July 04 10:56am Insurance Providers Guarantor Luisa Ferraro Address [address] [address]Uiosjak Info.Home Phone: Payer Group Member ID Coverage Type Subscriber Relationship to Subscriber Effective Date Expiration Date Medicaid [id number] J Zamora Id: [id number] [address] [address] Home Phone: SelfMedicare Corazon [id number] J Zamora Id: [id number] [address] [address] Home Phone: Self Encounters Encounter Location(s) Arrival/Admit Date Discharge/Departure Date Discharge/Departure Disposition Provider(s) Departed Physician/ Provider Office Visit -[facility] January 02, 2025 9:32am January 02, 2025 10:12am Discharged to home care or self care (routine discharge) RIHCARD Barry Departed Physician/ Provider Office Visit -[facility] February 11, 2025 10:55am February 11, 2025 11:41am Discharged to home care or self care (routine discharge) RICHARD Barry Recent Diagnosis Onset Date Admit Date GERD without esophagitis Unknown 2024 9:32am Osteoarthritis of knees, bilateral Unknown January 02, 2025 9:32am Overweight (BMI 25.0-29.9) Unknown [facility] 2024 9:32am Recurrent depression Unknown December 112024 9:32am Tubular adenoma of colon Unknown [facility] er 2024 9:32am Overweight (BMI 25.0-29.9) Unknown 2024 10:55am Assessments Diagnosis Onset Date Resolution Status Admit Date GERD without esophagitis acutept2024 9:32amOsteoarthritis of knees, bilateralacutept2024 9:32amOverweight (BMI 25.0-29.9)[facility] 20[facility] 9:32am Recurrent depressionacutept2024 9:32amTubular adenoma of colon [facility] [place] 9:32amOverweight (BMI 25.0-29.9)[facility]2024 10:55am Plan of Treatment Author Chasity [facility] 2024 9:14am Recommendations: freq small meals, nothing to eat or drink at least 2 hours prior to bed, limit caffeine, alcohol, as well as spicy foods. Meds to limit or avoid if possible: NSAIDS Elevate the HOB if possible current med: omeprazole due for colonoscopy, last scope was 2019 last scope by samreen, wants to go back to him current med: fluoxetine continues with left knee pain, spoke with sister who brought her, she will check with Candida (brother) they feel that the only time pt c/o knee pain is when she is in the office, but she is playing sports etc. so until there is a change there, conservative treatment Author Chasity [facility] 2024 6:42amremain as physical active as chronic conditions allow diet low in fat and processed foods Future Tests Future scheduled test information is unavailable Pending Tests Pending diagnostic test information is unavailable Future Visits Future appointment information is unavailable Future Procedures Future procedure information is unavailable Future Medications Future medication information is unavailable Patient Instructions Patient instructions are unavailable
--- NOTE | 2025-02-11 18:24 | ECG_ITS ---
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 Measurements Intervals [place] Rate: 64 P: 51 LA: 146 QRS: 52 QRSD: 78 T: 41 QT: 414 QTc: 423 Interpretive Statements 1100 Sinus rhythm 9110 normal ECG Compared to ECG 02/06/2018 10:22:47 No significant changes Electronically Signed On 02-11-2025 18:50:08 EST by VICENTE FARRELL M.D.
--- OUTSIDE RECORDS SUMMARY | 2025-02-11 18:26 | XMS_ITS | Encounter Summary ---
Author Organization [facility] tem Address [id number] [address] [place] [address] Care Team Providers Care Industrial Waste Treatment Technician Name Role Phone Archie Yeboah MD Primary Care Provider [phone] Encounter Details DateTypeDepartmentCare Team (Latest Contact Info)Cyyjfpytmds58/22/2025Travel Social History Tobacco UseTypesPacks/DayYears UsedDateSmoking Tobacco: NeverSmokeless Tobacco: NeverAlcohol UseStandard Drinks/WeekCommentsNo0 (1 standard drink = 0.6 oz pure alcohol)PHQ-2AnswerDate RecordedTotal Sefim6953ChildcareAnswerDate RnuxpaisJmkgehgkbZtoctme51/03/2019EmploymentAnswerDate RecordedEmploymentUnknown 09/11/2018Hunger ScreeningAnswerDate RecordedWithin the past 12 months we worried whether our food would run out before we got money to buy more.Never True04/28/2022Within the past 12 months the food we bought just didn't last and we didn't have money to get more.Never True3Purpose - LifeAnswerDate RecordedPurpose and direction in xazjEobrqip75/13/2021CommentsNoSex and Gender InformationValueDate RecordedSex Assigned at BirthNot on fileLegal Sex Edbcjg7811/14/2014 11:42 AM EDTGender IdentityNot on fileSexual OrientationNot on filedocumented as of this encounter Plan of Treatment Not on file documented as of this encounter Visit Diagnoses Not on filedocumented in this encounter Additional Health Concerns AssessmentNoted TimePHQ-9 Depression Total Score: 2:40 PM EDTA Body Mass Index follow-up plan has been documented for the aabawsw7308/16/2022 6:09 AM EDTdocumented as of this encounter Care Teams Team MemberRelationshipSpecialtyStart DateEnd Date Archie Yeboah MD PCP - GeneralFamily Medicine12/28/22documented as of this encounter
--- OUTSIDE RECORDS SUMMARY | 2025-02-11 18:26 | XMS_ITS | Clinical Summary ---
Author Organization [facility] tem Address [id number] [address] [place] [address] Care Team Providers Care Flour Worker Name Role Phone Archie Yeboah MD Primary Care Provider [phone] Allergies No known active allergies Medications MedicationSigDispense QuantityRefillsLast FilledStart DateEnd DateStatus alum-mag hydroxide-simeth (MAALOX) 200-200-20 mg/5 mL suspension Indications:GERD without esophagitisTake 30 mL by mouth every 4 (four) hours as needed for cramping, indigestion or heartburn. 354 mL Active blood-glucose meter (glucose monitoring kit) kit Indications:Type 2 diabetes mellitus with hyperglycemia, without long-term current use of insulin ([facility]Monitor blood sugars every morning before breakfast and at dinner time. 1 each 07/08/2020ctive lancets [facility] Indications:Type 2 diabetes mellitus with hyperglycemia, without long-term current use of insulin ([facility])Inject 1 applicator into the skin 2 (two) times a day. 100 each ctive blood sugar diagnostic (glucose blood) strip Indications:Type 2 diabetes mellitus with hyperglycemia, without long-term current use of insulin ([facility])Monitor blood sugars every morning before breakfast and at dinner time. 70 strip ctive TAMRA-GEST ANTACID 200 mg calcium (500 mg) chewable tablet Indications:HeartburnTAKE 1 TABLET BY MOUTH ONCE DAILY NEEDED FOR HEARTBURN OR INDIGESTION *CALL PHARMACY FOR REFILLSOK TO CHARGE* 90 tablet ctive ibuprofen (MOTRIN) 800 mg tablet Indications:Arthritis of both kneestake 1 tablet by mouth every 8 hours if needed for pain 60 tablet 6006/09/2022ctive rosuvastatin (CRESTOR) 10 mg tablet Indications:Mixed hyperlipidemiaGIVE 1 TABLET BY MOUTH EVERY EVENING (8PM) 90 tablet ctive omeprazole (PriLOSEC) 20 mg capsule Indications:GERD without esophagitisTAKE 1 CAPSULE BY MOUTH ONCE DAILY (8PM) 90 capsule ctive fluticasone propionate (FLONASE) 50 mcg/actuation nasal spray Indications:Chronic allergic rhinitis due to pollenUSE 2 SPRAYS IN EACH NOSTRIL ONCE DAILY *CALL PHARMACY FOR REFILLS* 16 g ctive acetaminophen (TYLENOL EXTRA STRENGTH) 500 mg tablet Indications:Pain,Fever, unspecified fever causeGIVE 1 TABLET BY MOUTH EVERY 6 HOURS NEEDED FOR HEADACHE, GENERAL BODY PAIN NOT INCLUDING LEG PAIN OR FEVER>100.4 30 tablet ctive FLUoxetine (PROzac) 10 mg capsule Indications:Anxiety and depressionGIVE 1 CAPSULE BY MOUTH ONCE DAILY FOR DEPRESSION. MAY TAKE LATER IF SHE SLEEPS IN 90 capsule ctive loratadine (CLARITIN) 10 mg tablet Indications:Acute seasonal allergic rhinitisGIVE 1 TABLET BY MOUTH ONCE DAILY (8PM) 90 tablet ctive docusate sodium (COLACE) 100 mg capsule Indications:Constipation, unspecified constipation type,External hemorrhoidGIVE 2 CAPSULES (200MG) BY MOUTH DAILY AT BEDTIME DX: CHRONIC CONSTIPATION MAY HOLD IF LOOSE STOOLS 60 capsule 10009/07/2022ctive cholecalciferol, vitamin D3, (VITAMIN D3) 5,000 units capsule Indications:Vitamin D deficiencyGIVE 1 CAPSULE BY MOUTH DAILY AT BEDTIME 90 capsule ctive sod sulf-pot chloride-mag sulf 1.479-0.188- 0.225 gram tablet Indications:Encounter for colonoscopy due to history of colonic polypPlease see instructional sheet given by physicians office. 24 tablet Discontinued(Therapy completed) Active Problems ProblemNoted DateDiagnosed DateFamily history of diabetes hwtzxusx47/27/2020 Chronic allergic rhinitis due to ahqaod8006/04/2019Arthritis of both knees 03/26/2019Asymptomatic cycoudnxl29/06/2019Need for prophylactic vaccination with combined oosvctqvsh-uvactay-cnkndrohm (DTP) kskcing1809/14/2018Elevated glucose level08/29/2018Right knee pain05/08/2018Fall05/08/2018Lumbar back pain05/08/2018 Need for immunization against zxkxzobld78/16/2018Pelvic pain12/20/2017 Jsltdziqtjgl58/11/2018Impacted cerumen of right ear11/28/2017Medicare annual wellness visit, xpbbuvzets40/19/2018BMI 28.0-28.9,adult06/27/2017Mixed qnfmbdsantwuaa75/13/2018Other disorders of psychological mujegupnrnh58/12/2018 Encounter for screening for cardiovascular hwfoqpprk89/12/2018Abnormal developmental ucuhaektc03/12/2018GERD without eboktrtwigk02/08/2018Blood tests for routine general physical phfghwtepge45/08/2018 Resolved Problems ProblemNoted DateDiagnosed DateResolved DateAcute mucoid otitis media of left ear/7387Wxtjebacfh56Cough/05/2021 Congestion of paranasal sinus/1Acute non-recurrent idxhiyltgofn11Nausea and xxotkbpb98External jkcfgysodny612Acute non-recurrent ethmoidal gwvequxse76/20/2018 03/25/2020Sore bvceij25 Encounters DateTypeDepartmentCare UxxcSmnwstcdjpr56/22/2025 11:00 AM EDT - 01/30/2025 11:30 AM [facility] [address] [place] [id number] Tiffanie Teixeira MD COLONOSCOPY DIAGNOSTIC / SCREENING [G0105 +1 more]01/30/2025 10:42 AM EDT Anesthesia Event [facility] [address] [place] [phone] Andrew uSggs MD 01/30/2025 9:04 AM EDT - 01/30/2025 11:40 AM EDTHospital Encounter [facility] [address] [place] [address] Tiffanie Teixeira MD Discharge Disposition: Home01/30/20251313Dmzacs71/15/2025 2:20 PM EDTSupport Visit [facility] [address] [place] [address] 01/17/2025 9:30 AM EDTOffice Visit [facility] [address] [place] [phone] Janice Larry, HEALTHCARE ADVISORY SERVICES MANAGER-[facility] Encounter for colonoscopy due to history of colonic polyp (Primary Dx)01/17/2025 Travelfrom Last 3 Months Immunizations ImmunizationAdministration DatesNext DueInfluenza, Injectable, quadrivalent (PF) 03/22/2022,01/22/2021,03/20/2020,01/16/2019,01/19/2018Tdap08/29/2018 Family History Medical HistoryRelationNameCommentsHypertensionBrother 1Drug abuseBrother 2 CancerBrother 3CancerBrother 4Lung cancerFatherDiabetesMotherHeart diseaseMother RelationNameStatusCommentsBrother 1AliveBrother 2Brother 3DeceasedBrother 4 DeceasedFatherDeceasedMotherDeceased Social History Tobacco UseTypesPacks/DayYears UsedDateSmoking Tobacco: NeverSmokeless Tobacco: Never Tobacco Cessation:Counseling Given: No Alcohol UseStandard Drinks/WeekCommentsNo0 (1 standard drink = 0.6 oz pure alcohol)PHQ-2AnswerDate RecordedTotal Bnmmv6973ChildcareAnswerDate HmjlwfxxJtvugmwnsOofdarx14/03/2019EmploymentAnswerDate RecordedEmploymentUnknown 09/11/2018Hunger ScreeningAnswerDate RecordedWithin the past 12 months we worried whether our food would run out before we got money to buy more.Never True04/28/2022Within the past 12 months the food we bought just didn't last and we didn't have money to get more.Never True3Purpose - LifeAnswerDate RecordedPurpose and direction in zyiwIpksrmn38/13/2021CommentsNoSex and Gender InformationValueDate RecordedSex Assigned at BirthNot on fileLegal Sex Amtqrf5311/14/2014 11:42 AM EDTGender IdentityNot on fileSexual OrientationNot on file Last Filed Vital Signs Vital SignReadingTime TakenCommentsBlood Vnugcpta828/5201/30/2025 11:30 AM EDT Iofih899401/30/2025 11:30 AM SLEYqtgeuqkepo90.6 ??C (97.8 ??F)01/30/2025 11:04 AM EDTRespiratory Xyia8182 11:30 AM EDTOxygen Hssuxzkdop29%01/30/2025 11:30 AM EDTInhaled Oxygen Concentration--Jhpgob01.3 kg (144 lb)01/30/2025 9:21 AM EDT Zrnojp816.1 cm (5' 5 )01/30/2025 9:21 AM EDTBody Mass Index23.9601/30/2025 9:21 AM EDT Plan of Treatment Health MaintenanceDue DateLast DoneCommentsZoster (Shingles) Vaccine (1 of 2) 09/03/20150216Hwxlugyat90/23/202308/, 11/03/2020, 11/19/2019, Additional history existsDepression Lynqepqfw18/3COVID-19 Vaccine ( - 2024- season)/, 04/29/2021, 1Adult BMI Screening Tobacco Rsyacftsd545Colonoscopy01/31/2028 01/30/2025, 01/30/2025, 09/24/2019, Additional history existsDTaP,Tdap and Td Vaccines (2 - Td or Tdap)Pap UysujMliijcdmyenl28/10/2016 Medical Devices Not on file Procedures Procedure NamePriorityDate/TimeAssociated DiagnosisCommentsPR COLONOSCOPY FLX DX W/COLLJ SPEC WHEN PFRMD1 10:42 AM EDT history of colon polyps FL COLORECTAL SCRN; HI RISK IND01/30/2025 10:42 AM EDT history of colon polyps WWYMLKFKBNY70/22/2025 10:33 AM EDT PROVATION NTZWTFIZMXBNwfotlj51/22/2025 9:13 AM EDT MAMM SCREENING BILATERAL W AWXBxnsmrs55/23/2022 3:25 PM EDT Encounter for screening mammogram for malignant neoplasm of breast HIGH RISK HPV W/YIVRMryvlrq32/10/2016from Last 3 Months or Most Recently Relevant to Health Maintenance Results * Colonoscopy (01/30/2025 10:33 AM EDT)Specimen (Source)Anatomical Location / LateralityCollection Method / VolumeCollection TimeReceived Time01/30/2025 10:33 AM EDT Narrative PM CARDIOVASCULAR - 01/30/2025 10:58 AM EDT [facility] Patient Name: Luisa Ferraro ?? Procedure Date No Time: 01/30/2025 ?? CSN : [id number] Date of : 1965 Admit Type: Outpatient Age: 59 Room: [place] [address] Gender: Female Note Status: Finalized Attending MD: [...] monitored continuously. The [facility] ? PCF-H190DL # [id number] PEDIATRIC COLONOSCOPE was ? introduced through the [...] malignant neoplasm of colon CPT copyright 2022 [employer]. All rights reserved. The codes documented in this report are preliminary and upon applications developer review may be revised to meet current compliance requirements. MD Tiffanie Larson, 01/30/2025 10:58:00 AM This report has been signed electronically.Tiffanie Teixeira Number of Addenda: 0 Note Initiated On: 01/30/2025 10:33 AM Procedure Note Tiffanie Teixeira MD - 01/30/2025 [facility] Patient Name: Luisa Ferraro Procedure Date No Time: 01/30/2025 CSN : [id number] Date of : 1965 Admit Type: Outpatient Age: 59 Room: [place] [address] Gender: Female Note Status: Finalized Attending MD: [...] pulse, and oxygen saturations were monitored continuously. [facility] # [id number] PEDIATRIC COLONOSCOPE was introduced through the anus [...] malignant neoplasm of colon CPT copyright 2022 [employer]. All rights reserved. The codes documented in this report are preliminary and upon applications developer reviewmay be revised to meet current compliance [...] StatusTiffanie Teixeira MDIMG OR IMG ORDERABLESFinal Result * Mammography screening bilateral with CAD (12/01/2021 3:25 PM EDT)Anatomical RegionLateralityModalityBreastBilateralMammography Narrative Authorizing ProviderResult TypeResult StatusRadha Silver HEALTHCARE ADVISORY SERVICES MANAGER-CNPIMG MAMMOGRAPHY ORDERABLESFinal Result * High risk HPV w/sami (08/19/2015) Narrative Authorizing ProviderResult TypeResult StatusNot In System Ref ProvLAB BLOOD ORDERABLESFinal ResultPerforming OrganizationAddressCity/State/ZIP CodePhone Number MANUALLY TRANSCRIBED LAB RESULTS from Last 3 Months or Most Recently Relevant to Health Maintenance Insurance Care Teams Team MemberRelationshipSpecialtyStart DateEnd Archie Yeboah MD PCP - [facility]12/28/22
--- OUTSIDE RECORDS SUMMARY | 2025-02-11 18:26 | XMS_ITS | Clinical Summary ---
Author Organization [facility] Address [address] [place] [address] Care Team Providers Care Ehs Teacher Name Role Phone Chasity De La O NP Unavailable [phone] Archie Yeboah MD Primary Care Provider Chasity De La O NP Unavailable [phone] Chasity De La O NP Unavailable [phone] Allergies No known active allergies Medications MedicationSigDispense QuantityRefillsLast FilledStart DateEnd DateStatus omeprazole (PriLOSEC) [address] capsule Indications:Gastroesophageal reflux disease without esophagitisTake 1 capsule (20 mg) by mouth in the evening 90 capsule 5Active FLUoxetine (PROzac) 10 MG capsule Indications:Recurrent major depressive disorder, in remissionTake 1 capsule (10 mg) by mouth Daily 90 capsule 5Active loratadine (Claritin) 10 MG tablet Indications:Chronic allergic rhinitis due to pollenTake 1 tablet (10 mg) by mouth Daily 90 tablet 5Active rosuvastatin (Crestor) 10 MG tablet Indications:Mixed hyperlipidemiaGIVE 1 TABLET BY MOUTH EVERY EVENING (8PM) 90 tablet 5Active fluticasone (Flonase) 50 MCG/ACT nasal spray Indications:Chronic allergic rhinitis due to pollenAdminister 2 sprays into each nostril Daily 48 g 5Active Acetaminophen Extra Strength 500 MG tablet Indications:PainGIVE 1 TABLET BY MOUTH EVERY 6 HOURS NEEDED FOR HEADACHE, GENERAL BODY PAIN NOT INCLUDING LEG PAIN OR FEVER>100.4 60 tablet 5Active Active Problems ProblemNoted DateDiagnosed DateTubular adenoma of colon06/27/2024 Assessment & Plan (06/27/2024 5:15 PM EDT): I did contact dr jolley office while pt was here, she is on the list for sending out letter in 09/02 for her to have fu colonoscopy I did discuss this with pt's brother as well Chronic pain of left knee06/27/2024 Assessment & Plan (06/27/2024 5:15 PM EDT): Cont NSAID, Check xray Nausea & kuqlfzst51/16/2024 Assessment & Plan (12/26/2023 10:25 AM EDT): Will send in zofran to pharmacy Ordered urine culture and respiratory panel Heart burn08/02/2023 Assessment & Plan (06/27/2024 6:59 AM EDT): Recommendations: freq small meals, nothing to eat or drink at least 2 hours prior to bed, limit caffeine, alcohol, as well as spicy foods Meds to limit or avoid if possible: NSAIDS Elevate HOB if possible Current meds: omperazole Assessment & Plan (10/18/2023 3:46 PM EDT): Doing well on current meds Pain08/02/2023 Assessment & Plan (06/27/2024 5:14 PM EDT): [...] hours as needed for pain Vitamin D auvhuhxavc90/08/2024 Assessment & Plan (06/27/2024 7:00 AM EDT): Take supplement daily Check labs yearly and prn dose changes or changes in sxs Assessment & Plan (10/18/2023 3:46 PM EDT): Check labs Recurrent major depressive disorder, in ebfcbsyvk75/08/2024 Assessment & Plan (06/27/2024 5:19 PM EDT): Current med: fluoxetine PHQ 9=0 Assessment & Plan (10/18/2023 3:46 PM EDT): No change in meds Encounter for screening mammogram for malignant neoplasm of vwanml6506/07/2023 Encounter for subsequent annual wellness visit (AWV) in Medicare patient 06/07/2023 [...] Follow up yearly and prn Overweight (BMI 25.0-29.9)06/07/2023Mixed gxerqznjxqmgzf29/23/2023 Assessment & Plan (06/27/2024 7:01 AM EDT): On statin Check labs yearly and prn dose changes Chronic allergic rhinitis due to qlizfi7106/04/2019 Assessment & Plan (06/27/2024 7:00 AM EDT): Currently takes loratadine Arthritis of both knees03/26/2019Asymptomatic innpfjwbm56/06/2019Elevated glucose level08/29/2018 Assessment & Plan (10/18/2023 3:46 PM EDT): Check A1c test Wpqtmbbiyegs84/11/2018Abnormal developmental /12/2018 Resolved Problems ProblemNoted DateDiagnosed DateResolved DateViral gubphpl65/ Overview (12/26/2023): [employer] [id number] EXP: 04/10/2024 Lot # [id number] Assessment & Plan (12/26/2023 10:33 AM EDT): Suspect covid, will order resp panel and urine culture Fluids, rest nausea meds Off work note given for the week If worsening in symptoms can go to ER as well Gastroesophageal reflux disease without cacrtncgfyc55 Encounters DateTypeDepartmentCare SybbFocmqlefugn97/13/2025Refill [facility] [address] [place] [address] Chasity De La O NP Painfrom Last 3 Months Immunizations ImmunizationAdministration DatesNext DueInfluenza, injectable, quadrivalent, preservative free03/09/2023,03/22/2022,01/22/2021,03/20/2020,01/16/2019, 01/19/2018Tdap08/29/2018 Social History Tobacco UseTypesPacks/DayYears UsedDateSmoking Tobacco: NeverPassive Smoke Exposure: NeverSmokeless Tobacco: Never Tobacco Cessation:Counseling Given: No Alcohol UseStandard Drinks/WeekCommentsNever0 (1 [place] drink = 0.6 oz pure alcohol)diet pop: 1 dailyHumiliation, Afraid, Rape, and Kick questionnaireAnswer Date RecordedWithin the last year, have you been afraid of your partner or ex-partner?No06/07/2023Within the last year, have you been humiliated or emotionally abused in other ways by your partner or ex-partner?No06/07/2023 Within the last year, have you been kicked, hit, slapped, or otherwise physically hurt by your partner or ex-partner?No06/07/2023Within the last year, have you been raped or forced to have any kind of sexual activity by your part ner or ex-partner?No06/07/2023Social Connection and Isolation PanelAnswerDate RecordedIn a typical week, how many times do you talk on the phone with family, friends, or neighbors?More than three times a week06/07/2023How often do you get together with friends or relatives?Once a week06/07/2023How often do you attend baptism or catholic services?Never06/07/2023o you belong to any clubs or organizations such as baptism groups, unions, fraternal or athletic groups, or school groups?No06/07/2023How often do you attend meetings of the clubs or organizations you belong to?Never06/07/2023re you , , , , never , or living with a partner?Never mxtfflv1006/07/2023 AUDIT-CAnswerDate RecordedQ1: How often do you have a drink containing alcohol? Never06/07/2023Q2: How many drinks containing alcohol do you have on a typical day when you are drinking?Patient does not drink06/07/2023Q3: How often do you have six or more drinks on one occasion?Never06/07/2023Overall Financial Resource Strain (CARDIA)AnswerDate RecordedHow hard is it for you to pay for the very basics like food, housing, medical care, and heating?Not hard at all 06/07/2023HQ-2AnswerDate RecordedPatient Health Questionnaire-2 Score0 06/27/2024[facility] [place] [facility] - Occupational Stress QuestionnaireAnswerDate RecordedDo you feel stress - tense, restless, nervous, or anxious, or unable to sleep at night because yourmind is troubled all the time - these days?Not at all06/07/2023Exercise Vital SignAnswerDate RecordedOn average, how many days per week do you engage in moderate to strenuous exercise (like a brisk walk)?3 days06/07/2023On average, how many minutes do you engage in exercise at this level?20 min06/07/2023Hunger Vital SignAnswerDate Recorded Within the past 12 months, you worried that your food would run out before you got the money to buymore.Never true06/07/2023Within the past 12 months, the food you bought just didn't last and you didn't have money to get more.Never true 06/07/2023RAPARE - TransportationAnswerDate RecordedIn the past 12 months, has lack of transportation kept you from medical appointments or from getting medications?No06/07/2023In the past 12 months, has lack of transportation kept you from meetings, work, or from getting things needed for daily living?No 06/07/2023Housing Stability Vital SignAnswerDate RecordedIn the last 12 months, was there a time when you were not able to pay the mortgage or rent on time?No 06/07/2023In the last 12 months, how many places have you lived?In the last 12 months, was there a time when you did not have a steady place to sleep or slept in ashelter (including now)?No06/07/2023CommentsUnknown Sex and Gender InformationValueDate RecordedSex Assigned at BirthNot on file Legal GvbMxuqbx93/28/2023 4:10 PM EDTGender IdentityNot on fileSexual OrientationNot on file Last Filed Vital Signs Vital SignReadingTime TakenCommentsBlood Hsfxqbwp532/80006/27/2024 11:06 AM EDT Gqirs1385 11:06 AM JHFNpkiejsicwv15.9 ??C (98.5 ??F)06/27/2024 11:06 AM EDTRespiratory Mxmm111006/27/2024 11:06 AM EDTOxygen Tjijjtovnr46%06/27/2024 11:06 AM EDTInhaled Oxygen Concentration--Rbrucm65.4 kg (137 lb 9.6 oz)06/27/2024 11:06 AM HGPWkwidd399.9 cm (4' 11 )12/26/2023 9:43 AM EDTBody Mass Index27.79 12/26/2023 9:43 AM EDT Plan of Treatment Health MaintenanceDue DateLast DoneCommentsCT Ztrcgihldttc79/25/1966FIT-DNA 1965FIT1965FOBT1965 7594Nlpyzwufcnjcv77/25/1966Pap Smear1986 HPV/Dpsosf7609/03/19950094Qurmsbuuvag82/15/202506/, 09/24/2019Colorectal Cancer Blalbrrji75/15/2025COVID-19 Vaccine ( season)501/, 06/05/2020Influenza Vaccine (#1)511/, 03/22/2022, 01/22/2021, Additional history flvtykRkhqhxgtj48, 12/14/2023, 12/14/2023, Additional history existsMedicare Annual Wellness (AWV)603/, 06/27/2024, 06/07/2023, Additional history existsCervical Cancer Screening DiscontinuedPneumococcal Vaccine: Pediatrics (0 to 5 Years) and At-Risk Patients (6 to 64 Years)Aged OutNo longer eligible based on patient's age to complete this topic Procedures Procedure NamePriorityDate/TimeAssociated DiagnosisCommentsMM TOMOSYNTHESIS SCREENING BI12/14/2023 4:24 PM EDT from Last 3 Months or Most Recently Relevant to Health Maintenance Results * MM TOMOSYNTHESIS SCREENING BI (12/14/2023 4:24 PM EDT)Anatomical Region LateralityModalityOtherSpecimen (Source)Anatomical Location / Laterality Collection Method / VolumeCollection TimeReceived Time12/14/2023 4:24 PM EDT Narrative 12/14/2023 4:25 PM EDT [facility] ?[address] ? [place] [address] ? Mammography Report ? Signed ? Patient: RONAN,JOSE ? MR#: [id number] ?? : 1965 ?Acct:[id number] ?? Age/Sex: 58 / F ?ADM Date: 12/13/23 ?? Loc: MAMMO ? Attending Dr: Chasity J Aichholz MINERAL SURVEYING TECHNICIAN ? Ordering Physician: Aichholz,Chasity MINERAL SURVEYING TECHNICIAN ?Results: ? Date of Service: 12/13/23 ?Follow Up: ? Procedure(s): MM tomosynthesis screening BI ?? Accession Number(s): [id number] ? cc: Chasity De La O MINERAL SURVEYING TECHNICIAN ? Patient Name: ? ANDREA FERRARO ? MR#: [id number] ? : 1965 ? Exam Date: 12/13/2023 ?? Ordering Doctor: BRIAN De La O CNP ? RADIOLOGY REPORT ? PROCEDURE: ? MM TOMOSYNTHESIS SCREENING BI ? COMPARISON: ? MM TOMOSYNTHESIS SCREENING BI, 12/08/2022. ??MG MAMM SCREEN 3D ?? KATHY CAD, 12/01/2021. ??MG MAMM SCREEN 3D KATHY CAD, 10/30/2020. ??MG MAMM KATHY SCRN W ?? CAD DIG, 06/06/2013. ? INDICATIONS: ? Screening ? Calculator Name ? NCI Breast Cancer Risk Assessment Tool ?? 5 Year Breast Cancer Risk ? 1.30% ?? Lifetime Breast Cancer Risk ? 8.00% ?? Personal Breast Cancer ?No ?? Personal Ovarian Cancer ? No ?? Treatments ? None ?? Family Cancers ? Brother with unknown cancer at age 49; Brother with unknown ?? cancer at age 57; Father with lung cancer at age 75. ? LOCATION: ? [facility] ? BREAST COMPOSITION: ? There are scattered areas of fibroglandular density. ? FINDINGS: ? DIAGNOSTIC CATEGORY 2--BENIGN FINDING: ? RIGHT BREAST: ??No significant suspicious finding. ??Stable, chronic lower-outer ?? quadrant benign-appearing lymph node. ??No significant change has occurred. ? LEFT BREAST: ??No significant suspicious finding. ??No significant change has ?? occurred. ? RECOMMENDATIONS: ? ROUTINE MAMMOGRAM AND CLINICAL EVALUATION IN 12 MONTHS. ? PLEASE NOTE: ??A NORMAL MAMMOGRAM DOES NOT EXCLUDE THE POSSIBILITY OF BREAST ?? CANCER. ??A CLINICALLY SUSPICIOUS PALPABLE LUMP SHOULD BE BIOPSIED. ? Dictated by: Hussain Angela M.D. on 12/14/2023 at 16:21 ? Approved by: Hussain Angela M.D. on 12/14/2023 at 16:24 ? Dictated By: ?Hussain Angela M.D. ? Signed By: ?12/14/235 ? DD/ 1624 ? TD/TT: ? Health Center Associate: Procedure Note Radiology, Radiologist, MD - 12/14/2023 [place] [address] Mammography Report Signed Patient: ANDREA FERRARO JMR#: [id number] : 1965Acct:[id number] Age/Sex: 58 / FADM Date: 12/13/23 Loc: MAMMO Attending Dr: Chsaity De La O NP Ordering Physician: Chasity De La Oesults: Date of Service: 12/13/23Follow Up: Procedure(s): MM tomosynthesis screening BI Accession Number(s): [id number] cc: Chasity De La O NP Patient Name: ANDREA FERRARO MR#: [id number] : 1965 Exam Date: 12/13/2023 Ordering Doctor: BRIAN De La O ACTING PROFESSOR RADIOLOGY REPORT PROCEDURE: MM TOMOSYNTHESIS SCREENING BI COMPARISON: MM TOMOSYNTHESIS SCREENING BI, 12/08/2022. MG MAMM EIMKAZ8X KATHY CAD, 12/01/2021. MG MAMM SCREEN 3D [...] lung cancer at age 75. LOCATION: [facility] BREAST COMPOSITION: There are scattered areas [...] 16:24 Dictated By: Hussain Angela M.D. Signed By:12/14/235 DD/ 23 TD/TT: Health Center Associate: Authorizing ProviderResult TypeResult StatusLisa [facility] HospitalLINISYPA IMAGING Final Result from Last 3 Months or Most Recently Relevant to Health Maintenance Insurance Care Teams Team MemberRelationshipSpecialtyStart DateEnd Date Archie Yeboah MD [facility] - [facility] Chasity De La O NP [address] [place] [address] PCP - ACO [place]05/18/24 Chasity De La O NP Nurse PractitionerWest [facility] Medicine04/11/22 Chasity De La O NP Nurse PractitionerWest [facility] Medicine06/07/23
--- OUTSIDE RECORDS SUMMARY | 2025-02-11 18:26 | XMS_ITS | Encounter Summary ---
Author Organization [facility] Address [address] [place] [address] Care Team Providers Care Cribber Name Role Phone Chasity De La O DIRECTOR OF RETENTION Unavailable [phone] Archie Yeboah MD Primary Care Provider Chasity De La O NP Unavailable [phone] Chasity De La O NP Unavailable [phone] Encounter Details DateTypeDepartmentCare Team (Latest Contact Info)Tywwaonbehv42/04/2024Clinisync Result Encounter [facility] External Department Unsolicited Chasity De La O NP [address] [place] [id number] Social History Tobacco UseTypesPacks/DayYears UsedDateSmoking Tobacco: NeverPassive Smoke Exposure: NeverSmokeless Tobacco: NeverAlcohol UseStandard Drinks/WeekComments Never0 (1 [place] drink = 0.6 oz pure alcohol)diet pop: 1 dailyHumiliation, Afraid, Rape, and Kick questionnaireAnswerDate RecordedWithin the last year, have you been afraid of your partner or ex-partner?No06/07/2023Within the last year, have you been humiliated or emotionally abused in other ways by your partner or ex-partner?No06/07/2023Within the last year, have you been kicked, hit, slapped, or otherwise physically hurt by your partner or ex-partner?No 06/07/2023Within the last year, have you been raped or forced to have any kind of sexual activity by your partner or ex-partner?No06/07/2023Social Connection and Isolation PanelAnswerDate RecordedIn a typical week, how many times do you talk on the phone with family, friends, or neighbors?More than three times a week06/07/2023How often do you get together with friends or relatives?Once a week06/07/2023How often do you attend episcopalian or uatsdin services?Never 06/07/2023o you belong to any clubs or organizations such as episcopalian groups, unions, fraternal or athletic groups, or school groups?No06/07/2023How often do you attend meetings of the clubs or organizations you belong to?Never06/07/2023 Are you , , , , never , or living with a partner?Never sfycxti4106/07/2023UDIT-CAnswerDate RecordedQ1: How often do you have a drink containing alcohol?Never06/07/2023Q2: How many drinks containing alcohol do you have on a typical day when you are drinking?Patient does not drink06/07/2023Q3: How often do you have six or more drinks on one occasion? Never06/07/2023Overall Financial Resource Strain (CARDIA)AnswerDate RecordedHow hard is it for you to pay for the very basics like food, housing, medical care, and heating?Not hard at all06/07/2023HQ-2AnswerDate RecordedPatient Health Questionnaire-2 Rcupn509[facility] [place] of Occupational Health - Occupational Stress QuestionnaireAnswerDate RecordedDo you feel stress - tense, restless, nervous, or anxious, or unable to sleep at night because yourmind is troubled all the time - these days?Not at all06/07/2023Exercise Vital SignAnswer Date RecordedOn average, how many days per week do you engage in moderate to strenuous exercise (like a brisk walk)?3 days06/07/2023On average, how many minutes do you engage in exercise at this level?20 min06/07/2023Hunger Vital SignAnswerDate RecordedWithin the past 12 months, you worried that your food would run out before you got the money to buymore.Never true06/07/2023Within the past 12 months, the food you bought just didn't last and you didn't have money to get more.Never true06/07/2023RAPARE - TransportationAnswerDate RecordedIn the past 12 months, has lack of transportation kept you from medical appointments or from getting medications?No06/07/2023In the past 12 months, has lack of transportation kept you from meetings, work, or from getting things needed for daily living?No06/07/2023Housing Stability Vital SignAnswerDate RecordedIn the last 12 months, was there a time when you were not able to pay the mortgage or rent on time?No06/07/2023In the last 12 months, how many places have you lived?In the last 12 months, was there a time when you did not have a steady place to sleep or slept in ashelter (including now)?No 06/07/2023CommentsUnknownSex and Gender InformationValueDate RecordedSex Assigned at BirthNot on fileLegal PwcLlhbpq74/28/2023 4:10 PM EDTGender Identity Not on fileSexual OrientationNot on filedocumented as of this encounter Functional Status * Over the past 2 weeks, how often have you been bothered by any of the following problems?QuestionAnswerDate of AssessmentAuthorLittle interest or pleasure in doing thingsNot at all06/27/2024 11:10 AM Sommer Girard MAFeeling down, depressed, or hopelessNot at all06/27/2024 11:10 AM EDT Sommer David MAPatient Health Questionnaire-2 Myytt673 11:10 AM Somemr Girard MA * QuestionAnswerDate of AssessmentAuthorTrouble falling or staying asleep, or sleeping too muchNot at all06/27/2024 11:10 AM Sommer Girard MA Feeling tired or having little energyNot at all06/27/2024 11:10 AM Sommer Berg MAPoor appetite or overeatingNot at 06/27/2024 11:10 AM Sommer Girard MAFeeling bad about yourself - or that you are a failure or have let yourself or your family downNot at 06/27/2024 11:10 AM Sommer Girard MATroubelder concentrating on things, such as reading the newspaper or watching televisionNot at 06/27/2024 11:10 AM Sommer Girard MAMoving or speaking so slowly that other people could have noticed? Or the opposite - being so fidgety or restless that you have been moving around a lot more than usual.Not at all06/27/2024 11:10 AM Sommer Girard MAThoughts that you would be better off or hurting yourself in some wayNot at 06/27/2024 11:10 AM Sommer Girard MAPatient Health Questionnaire-9 Hdrvl504 11:10 AM Sommer Girard MA documented as of this encounter Plan of Treatment Not on file documented as of this encounter Procedures Procedure NamePriorityDate/TimeAssociated DiagnosisCommentsMM TOMOSYNTHESIS SCREENING BI12/14/2023 4:24 PM EDT documented in this encounter Results * MM TOMOSYNTHESIS SCREENING BI (12/14/2023 4:24 PM EDT)Anatomical Region LateralityModalityOtherSpecimen (Source)Anatomical Location / Laterality Collection Method / VolumeCollection TimeReceived Time12/14/2023 4:24 PM EDT Narrative 12/14/2023 4:25 PM EDT [facility] ?[address] ? [place] [address] ? Mammography Report ? Signed ? Patient: FERRARO,JOSE ? MR#: [id number] ?? : 1965 ?Acct:[id number] ?? Age/Sex: 58 / F ?ADM Date: 09/03/24 ?? Loc: MAMMO ? Attending Dr: Chasity J Aichholz DIRECTOR OF RETENTION ? Ordering Physician: Jaylyn,Chasity DIRECTOR OF RETENTION ?Results: ? Date of Service: 12/13/23 ?Follow Up: ? Procedure(s): MM tomosynthesis screening BI ?? Accession Number(s): [id number] ? cc: Chasity De La O NP ? Patient Name: ? LUISA FERRARO ? MR#: [id number] ? : 1965 ? Exam Date: 12/13/2023 [...] at age 75. ? LOCATION: ? [facility] ? BREAST COMPOSITION: ? There are scattered [...] By: ?Hussain Angela M.D. ? Signed By: ?12/14/23 1625 ? DD/ 1624 ? TD/TT: ? Auditing Clerk: Procedure Note Radiology, Radiologist, MD - 12/14/2023 [place] [address] Mammography Report Signed Patient: LUISA FERRARO JMR#: [id number] : 1965Acct:[id number] Age/Sex: 58 / FADM Date: 12/13/23 Loc: MAMMO Attending Dr: Chasity De La O NP Ordering Physician: Chasity De La Oesults: Date of Service: 12/13/23Follow Up: Procedure(s): MM tomosynthesis screening BI Accession Number(s): [id number] cc: Chasity De La O NP Patient Name: LUISA FERRARO MR#: [id number] : 1965 Exam Date: 12/13/2023 Ordering Doctor: BRIAN De La O OIL HOUSE ATTENDANT RADIOLOGY REPORT PROCEDURE: MM TOMOSYNTHESIS SCREENING BI COMPARISON: MM TOMOSYNTHESIS SCREENING BI, 12/08/2022. MG MAMM AYVPEA2L KATHY CAD, 12/01/2021. MG MAMM SCREEN 3D [...] lung cancer at age 75. LOCATION: [facility] BREAST COMPOSITION: There are scattered areas of [...] M.D. Signed By:12/14/23 1625 DD/ 1624 TD/TT: Auditing Clerk: Authorizing ProviderResult TypeResult StatusLisa Jaylyn NPCLINISYNC IMAGING Final Result documented in this encounter Visit Diagnoses Not on filedocumented in this encounter Additional Health Concerns AssessmentNoted TimePHQ-9 Depression Total Score: 11:19 AM EST documented as of this encounter Care Teams Team MemberRelationshipSpecialtyStart DateEnd Date Archie Yeboah MD PCP - GeneralFamily Medicine06/07/23 Chasity De La O NP [address] [place] [address] PCP - [facility]05/18/24 Chasity De La O NP Nurse PractitionerFamily Medicine04/11/22 Chasity De La O NP Nurse PractitionerFami Medicine06/07/23documented as of this encounter
[2025-02-11 18:39] LABS: Hematocrit 40.0 % (36.0-48.0); Hemoglobin 13.6 g/dL (12.0-16.0); Immature Granulocytes Abs Auto 0.02 10^3/uL (0.00-0.03); Immature Granulocytes Pct Auto 0.2 % (0.0-0.5); Lymphocytes Absolute Auto 3.1 10^3/uL (1.2-3.8); Mean Corpuscular HGB Conc 34.0 g/dL (29.9-35.2); Mean Corpuscular Hemoglobin 31.6 pg (26.7-34.0); Mean Corpuscular Volume 92.8 fL (81.0-99.0); Platelet Count 255 10^3/uL (150-450); Red Blood Count 4.31 10^6/uL (4.20-5.40); White Blood Count 8.5 10^3/uL (4.0-11.0)
[2025-02-11 18:52] LABS: Alanine Aminotransferase 24 U/L (14-59); Albumin Globulin Ratio 1.0; Albumin Level 3.7 g/dL (3.4-5.0); Alkaline Phosphatase 131 U/L (46-116); Anion Gap 11.7; Aspartate Amino Transferase 16 U/L (15-37); Blood Urea Nitrogen 20.0 mg/dL (7.0-18.0); Calcium 9.1 mg/dL (8.5-10.1); Carbon Dioxide 28.4 mmol/L (21.0-32.0); Chloride 102 mmol/L (98-107); Estimated GFR (African America >60 (>=60 mL/min/1.73m^2); Estimated GFR (Non-African Ame >60 (>=60 mL/min/1.73m^2); Globulin 3.6 g/dL; Glucose 102 mg/dL (74-106); Potassium 4.1 mmol/L (3.5-5.1); Sodium 138 mmol/L (136-145); Total Protein 7.3 g/dL (6.4-8.2)
--- NOTE | 2025-02-11 19:12 | ED_ITS ---
HPI HPI - General Adult General Chief complaint: Recheck/Abnormal Lab/Rx Stated complaint: HIGH BLOOD PRESSURE Time Seen by Provider: 02/11/25 18:09 Source: patient Mode of arrival: walk-in Limitations: no limitations History of Present Illness HPI narrative: Patient is a 59-year-old female that presents with her caregiver from her skilled nursing with complaints of high blood pressure. Her caregiver does provide a lot of the history and states that the skilled nursing started taking and recording her blood pressure daily after she had an elevated reading during her colonoscopy recently. She did just see her primary care provider yesterday for routine physical and her blood pressure was fine. She did have a reading from a manual BP reading that was 170/110 and the caregiver decided to bring her in just to be safe. She denies any symptoms. She denies headache, dizziness, nausea, vomiting, diarrhea, chest pain, shortness of breath, abdominal pain, or any neurological deficits. Related Data Home Medications ?Medication ?Instructions ?Recorded ?Confirmed acetaminophen 500 mg tablet 500 mg PO Q6H PRN pain 07/0302/11/25 cholecalciferol (vitamin D3) 125 125 mcg PO DAILY 07/0302/11/25 mcg (5,000 unit) capsule docusate sodium 100 mg capsule 100 mg PO DAILY 5 02/11/25 fluoxetine 10 mg capsule 10 mg PO DAILY 02/11/2507/03 fluticasone propionate 50 2 spray intranasal DAILY 07/0302/11/25 mcg/actuation nasal spray,suspension ibuprofen 600 mg tablet 600 mg PO Q12H PRN pain 07/0302/11/25 loratadine 10 mg tablet 10 mg PO DAILY 02/11/2507/03 omeprazole 20 mg capsule,delayed 20 mg PO DAILY 02/11/25 release rosuvastatin 10 mg tablet 10 mg PO DAILY 02/11/2507/03 Allergies Allergy/AdvReac Type Severity Reaction Status Date / Time No Known Drug Allergies Allergy Verified 02/11/25 18:04 Review of Systems ROS Status of ROS 10 or more systems reviewed and unremark able except as noted in history and below PFSH PFSH Social History Little interest or pleasure in doing things: not at all Feeling down, depressed, or hopeless: not at all Exam Narrative Exam Narrative: General: No distress, age-appropriate Skin: Warm, dry, no pallor. No rash. Head: Normocephalic, atraumatic. Neck: Supple, non-tender. Eye: Pupils are equal, round and EOMI. No scleral icterus. Ears, Nose, Mouth, and Throat: No nasal mucosal hypertrophy. Oral mucosa is moist, no posterior oropharynx erythema, uvula is mid-line Cardiovascular: Regular Rate and Rhythm without murmur, gallop or rub. Respiratory: No accessory muscle use or respiratory distress. Lungs are clear to auscultation, no wheezing, rales or rhonchi Chest Wall: no tenderness Musculoskeletal: Full ROM of all extremities, no calf or popliteal tenderness GI: Abdomen is soft, non-distended, non tender to palpation. No masses appreciated. No rebound, guarding, or rigidity noted. Neurological: A&O x4. No cranial nerve dysfunction observed. No truncal ataxia. Moves all extremities. Sensation intact. Psychiatric: Cooperative and interactive. Normal mood and affect. Constitutional Vital Signs, click to edit/add: Last Vital Signs Temp 97.4 F L 02/11/25 17:55 Pulse 64 02/11/25 17:55 Resp 16 02/11/25 17:55 BP 169/66 H 02/11/25 19:37 Pulse Ox 99 02/11/25 18:44 O2 Del Method Room Air 02/11/25 17:55 Course Vital Signs Vital signs: Vital Signs Temperature 97.4 F L 02/11/25 17:55 Pulse Rate 64 02/11/25 17:55 Respiratory Rate 16 02/11/25 17:55 Blood Pressure 156/66 H 02/11/25 17:55 Pulse Oximetry 100 02/11/25 17:55 Oxygen Delivery Method Room Air 02/11/25 17:55 Temperature 97.4 F L 02/11/25 17:55 Pulse Rate 64 02/11/25 17:55 Respiratory Rate 16 02/11/25 17:55 Blood Pressure 169/66 H 02/11/25 19:37 Pulse Oximetry 99 02/11/25 18:44 Oxygen Delivery Method Room Air 02/11/25 17:55 Medical Decision Making MDM Narrative Medical decision making narrative: This is a 59-year-old female that lives in a skilled nursing and presents to the ED with her caregiver with complaints of elevated blood pressure. They have been recording the blood pressures since her recent colonoscopy and tonight she had a reading of 170/110 from manual cuff after the wrist cuff read 169/95. She denies any symptoms recently, no increased anxiety, review of symptoms negative On arrival patient is calm and in no distress sitting on the ED cart. BP reading here 156/66, pulse 64. Afebrile. 100% O2 saturation on room air. No neurological deficits on exam. CBC, CMP, UA, EKG ordered. EKG on arrival reviewed and is normal sinus rhythm, HR 64, no ischemic changes or ST elevation. Labs CBC: WNL CMP: Lytes wnl, creatinine WNL, BUN 20 but within her baseline UA:Neg for infection or proteinuria I discussed results with patient and caregiver at bedside. Likely diagnosis is elevated blood pressure without diagnosis of hypertension. Patient remains asymptomatic in the ER with no signs of acute endorgan damage. I did discuss this with her PCP, Chasity CRAIG CNP on the phone, who patient had just seen earlier today. Caregiver will continue to have patient's BP monitor daily. She will follow-up with her nurse practitioner with these results.Return to ER precautions discussed for any new or worsening symptoms. Patient discharged in stable condition with plan for follow-up with PCP. Differential Diagnosis Differential Diagnosis: New onset essential hypertension, secondary hypertension, anxiety related Lab Data Lab results reviewed: Yes I reviewed the patient's lab results Labs: Lab Results 02/11/25 02/11/25 Range/Units 18:34 18:50 WBC 8.5 (4.0-11.0) 10^3/uL RBC 4.31 (4.20-5.40) 10^6/uL Hgb 13.6 (12.0-16.0) g/dL Hct 40.0 (36.0-48.0) % MCV 92.8 (81.0-99.0) fL MCH 31.6 (26.7-34.0) pg MCHC 34.0 (29.9-35.2) g/dL RDW 11.9 (11.0-15.0) % Plt Count 255 (150-450) 10^3/uL MPV 11.6 (9.5-13.5) fL Neut % (Auto) 55.4 (43.0-75.0) % Lymph % (Auto) 36.2 (20.5-60.0) % Wise % (Auto) 6.4 (1.7-12.0) % Eos % (Auto) 1.4 (0.9-7.0) % Baso % (Auto) 0.4 (0.2-2.0) % Neut # (Auto) 4.7 (1.4-6.5) 10^3/uL Lymph # (Auto) 3.1 (1.2-3.8) 10^3/uL Wise # (Auto) 0.5 (0.3-0.8) 10^3/uL Eos # (Auto) 0.1 (0.0-0.7) 10^3/uL Baso # (Auto) 0.0 (0.0-0.1) 10^3/uL Abs Immat Gran (auto) 0.02 (0.00-0.03) 10^3/uL Imm/Tot Granulo (auto) 0.2 (0.0-0.5) % Sodium 138 (136-145) mmol/L Potassium 4.1 (3.5-5.1) mmol/L Chloride 102 (98-107) mmol/L Carbon Dioxide 28.4 (21.0-32.0) mmol/L Anion Gap 11.7 BUN 20.0 H (7.0-18.0) mg/dL Creatinine 0.67 (0.55-1.02) mg/dL Est GFR ( Amer) >60 (>=60 mL/min/1.73m^2) Est GFR (Non-Af Amer) >60 (>=60 mL/min/1.73m^2) BUN/Creatinine Ratio 29.9 Glucose 102 (74-106) mg/dL Calcium 9.1 (8.5-10.1) mg/dL Total Bilirubin 0.2 (0.2-1.0) mg/dL AST 16 (15-37) U/L ALT 24 (14-59) U/L Alkaline Phosphatase 131 H (46-116) U/L Total Protein 7.3 (6.4-8.2) g/dL Albumin 3.7 (3.4-5.0) g/dL Globulin 3.6 g/dL Albumin/Globulin Ratio 1.0 Urine Color Lt. green (YELLOW) Urine Clarity Clear (CLEAR) Urine pH 6.5 (5.0-9.0) Ur Specific [place] 1.015 (1.005-1.025) Urine Protein Negative (NEG/TRACE) mg/dL Urine Glucose (UA) Negative (NEGATIVE) mg/dL Urine Ketones Negative (NEGATIVE) mg/dL Urine Occult Blood Trace-i (NEGATIVE) Urine Nitrite Negative (NEGATIVE) Urine Bilirubin Negative (NEGATIVE) Urine Urobilinogen 0.2 (0.2-1.0) EU/dL Ur Leukocyte Esterase Trace A (NEGATIVE) Urine RBC None seen (0-2) #/HPF Urine WBC 0-2 A (NONE SEEN) #/HPF Ur Squamous Epith Cells None seen (NONE/RARE) #/LPF Urine Crystals None seen (None Seen) #/HPF Urine Bacteria None seen (NONE SEEN) #/HPF Urine Casts None seen (NONE SEEN) #/LPF Urine Mucus None seen (NONE SEEN) Ur Culture Indicated? No ECG Data Attestation: ?I have reviewed the pertinent ECG results. Discharge Plan Discharge Chief Complaint: Recheck/Abnormal Lab/Rx Clinical Impression: Elevated BP without diagnosis of hypertension Patient Disposition: Home, Self-Care Time of Disposition Decision: 19:36 Condition: Good Mode of Transportation: Private Vehicle Prescriptions / Home Meds: No Action acetaminophen 500 mg tablet 500 mg PO Q6H PRN (Reason: pain) cholecalciferol (vitamin D3) 125 mcg (5,000 unit) capsule 125 mcg PO DAILY docusate sodium 100 mg capsule 100 mg PO DAILY fluoxetine 10 mg capsule 10 mg PO DAILY fluticasone propionate 50 mcg/actuation spray,suspension 2 spray INTRANASAL DAILY ibuprofen 600 mg tablet 600 mg PO Q12H PRN (Reason: pain) loratadine 10 mg tablet 10 mg PO DAILY omeprazole 20 mg capsule,delayed release(DR/EC) 20 mg PO DAILY rosuvastatin 10 mg tablet 10 mg PO DAILY Print Language: Camb[place]ian Instructions: Hypertension (ED) Additional Instructions: * Check your blood pressure at home: * Measure at the same time each day (morning and evening). * Sit quietly for 5 minutes before measuring. * Keep a written record of your readings. * Follow up with your primary care provider within 1?2 weeks for repeat blood pressure checks and discussion of results. * Lifestyle measures: * Reduce salt (sodium) intake. * Maintain a healthy weight. * Eat more fruits, vegetables, and whole grains. * Limit alcohol and caffeine. * Exercise regularly (as tolerated, at least 30 minutes most days). * Avoid tobacco use. Return to the Emergency Department Immediately if You Experience: * Chest pain or pressure * Shortness of breath * Severe or sudden headache * Blurred or changed vision * Weakness, numbness, or difficulty speaking * Confusion or dizziness * Blood pressure consistently above 180/110 mmHg Referrals: Chasity Craig NP [Primary Care Provider, [facility]] - 1 week Discharge Date/Time: 02/11/25 19:47
[2025-02-11 19:28] LABS: Glucose Urine UA NEGATIVE (NEGATIVE)
[2025-02-11 19:34] LABS: Cast Seen? NONE SEEN #/LPF (NONE SEEN); Crystals Seen? None Seen #/HPF (None Seen); Urine Culture Indicated NO
== END 2025-02-11 19:47 | disposition home or self-care (01) ==
PROVIDERS: Physician Assistant; Emergency Provider Emergency Medicine; PCP Nurse Practitioner
DX: R03.0 Elevated blood-pressure reading, without diagnosis of hypertension (principal)
CPT/HCPCS: 36415; 80053; 81001; 85025; 93005; 99285